=== PATIENT | male | born 1960 | race Caucasian/White ===

== ENCOUNTER 2016-06-03 15:44 | Emergency (ER) | payer MEDICARE ==
[2016-06-03] MEDS ORDERED: TYLENOL 325 MG PO STA (16:18)
[2016-06-03] MEDS ORDERED: PROVENTIL 2.5 MG/3 ML NEB IH ONE ×2 (16:20→16:47)
[2016-06-03] MEDS ORDERED: Sodium Chloride 0.9% 1000 ML 1,000 ML IV SCH (16:30)
[2016-06-03] MEDS ORDERED: Sodium Chloride 0.9% 1000 ML 1,000 ML ONE (16:31)
[2016-06-03] MEDS ORDERED: TYLENOL 325 MG ONE (16:31)
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
[2016-06-03 16:51] LABS: Mean Cell Volume 88.5 fl (78-100); Mean Corpuscular Hemoglobin 31.8 pg (26-32); Mean Platelet Volume 9.3 fl (6-9.5); Platelet Count 186 K/mm3 (150-450); Red Blood Count 4.53 M/mm3 (4.1-5.6); Red Cell Distribution Width 12.1 % (11.5-14.0); White Blood Count 2.7 K/mm3 (4.0-10.5)
--- NOTE | 2016-06-03 16:53 | XRAY ---
Indication: Cough and fever. Comparison: July 31, 2015. Portable chest less inflated today with new right midlung subsegmental atelectasis/scarring. No focal infiltrate, consolidation, or large effusion. Heart is not enlarged for AP portable technique. Vascularity normal. Bony thorax intact again with osteopenia, degenerative changes, scoliosis, and chronic deformities of the left shoulder/left ribs. Again left-sided electronic stimulator device with lead directed to the left neck. Impression: Nonacute underinflated chest with incidental findings.
[2016-06-03 17:33] LABS: ALBUMIN 3.9 g/dL (3.4-5.0); ALKALINE PHOSPHATASE 181 U/L (46-116); ANION GAP 16.4 MEQ/L (5-15); BILIRUBIN,TOTAL 0.2 mg/dL (0.2-1.0); BLOOD UREA NITROGEN 16 mg/dL (9-20); CHLORIDE 91 mEq/L (98-107); Carbon Dioxide 23.7 mEq/L (21-32); Glucose 107 MG/DL (70-110); Potassium 4.2 mEq/L (3.5-5.1); SGOT/AST 19 U/L (15-37); SGPT/ALT 30 U/L (12-78); SODIUM 127 mEq/L (136-145)
[2016-06-03] MEDS ORDERED: Tamiflu 75MG Capsule PO ONE ×2 (18:03→18:07)
[2016-06-03 18:22] LABS: ATYPICAL LYMPHS 1 %; BAND 14 % (0.0-2.0); Platelet Estimate NORMAL (NORMAL); Total Cells Counted 100
[2016-06-03 18:23] VITALS: BP 134/70; PULSE 76; O2SAT 98
== END 2016-06-03 18:23 | disposition home or self-care (01) ==
LOC: ED 15:44
DX: J11.1 Influenza due to unidentified influenza virus with other respiratory manifestations (principal); E87.1 Hypo-osmolality and hyponatremia; R50.9 Fever, unspecified
CPT/HCPCS: 99284; 36000; 96360; 96361; 87040; 36415; 85025; 80053; 87631; 71010; 94640; 83605; A9270 ×3

== ENCOUNTER 2018-05-29 20:10 | Observation (INO) | payer MEDICARE ==
[2018-05-29] MEDS ORDERED: Sodium Chloride 0.9% 1000 ML 1,000 ML IV STA (20:45)
[2018-05-29] MEDS ORDERED: TYLENOL 325 MG PO ONE (20:48)
[2018-05-29] MEDS ORDERED: Sodium Chloride 0.9% 1000 ML 1,000 ML ONE (20:53)
[2018-05-29] MEDS ORDERED: TYLENOL 325 MG ONE (20:53)
--- NOTE | 2018-05-29 20:57 | ERPHSYRPT ---
- History of Present Illness Time Seen by Provider: 05/29/18 20:53 Source: patient Exam Limitations: other (history of TBI) Patient Subjective Stated Complaint: brother states that pt has had a fever today, dry cough since last night, and possible seizure activity today Triage Nursing Assessment: pt awake and alert. lt arm contracted. pt answers some questions. brother is home care assistant and states that pt is drowsier than usual , but wakes easily. skin hot, dry. cap refill wnl. Physician History: 58-year-old white male brought in with the complaint of a fever today questionable seizure patient without any other complaints. 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 Past surgical history includes vagal nerve stimuli, double hernia repair, multiple surgeries to hand arms and jaw Timing/Duration: today Severity: moderate Modifying Factors: Improves With: nothing Associated Symptoms: fever, seizure (questionable seizure today), No nausea, No vomiting, No abdominal pain, No shortness of breath, No heartburn, No diaphoresis, No cough, No chills, No chest pain, No headaches, No loss of appetite, No malaise, No rash, No syncope, No weakness Allergies/Adverse Reactions: No Known Drug Allergies Allergy (Verified 05/29/18 21:54) Home Medications: Baclofen 40 mg PO BID 06/16/14 [History] Levetiracetam [Keppra] 500 mg PO BID 06/16/14 [History] Multivitamin [Multivitamins] 1 each PO DAILY 06/16/14 [History] Oxcarbazepine 300 mg [Trileptal 300 MG Tablet] 450 mg PO BID 06/16/14 [ History] Polyethylene Glycol 3350 17 gm [Miralax Powder 17GM PACKET] 1 packet PO HS [History] Lisinopril 10 mg [Zestril 10 MG] 20 mg PO BID 11/29/15 [History] Albuterol Sulfate [Proair Hfa] 8.5 gm IH BIDPRN PRN 06/03/16 [History] Fluticasone Propionate [Flonase NASAL] 16 gm NS DAILY 06/03/16 [History] Lacosamide [Vimpat] 200 mg PO BID 06/03/16 [History] Loratadine 10 mg [Claritin 10 mg] 10 mg PO DAILY 06/03/16 [History] Hx Tetanus, Diphtheria Vaccination/Date Given: Yes Hx Influenza Vaccination/Date Given: Yes Hx Pneumococcal Vaccination/Date Given: Yes Immunizations Up to Date: Yes - Review of Systems Constitutional: Fever Eyes: No Symptoms Ears, Nose, & Throat: No Symptoms Respiratory: No Cough, No Dyspnea Cardiac: No Chest Pain, No Edema, No Syncope Abdominal/Gastrointestinal: No Abdominal Pain, No Nausea, No Vomiting, No Diarrhea Genitourinary Symptoms: No Dysuria Musculoskeletal: No Back Pain, No Neck Pain Skin: No Rash Neurological: Seizure (questionable seizure today), Other (History of TBI), No Dizziness, No Focal Weakness, No Gait Changes, No Headache, No Irritability, No Lethargy, No Paralysis, No Parasthesia Psychological: No Symptoms Endocrine: No Symptoms All Other Systems: Reviewed and Negative - Past Medical History Pertinent Past Medical History: Yes Neurological History: Seizures ENT History: No Pertinent History Cardiac History: No Pertinent History Respiratory History: No Pertinent History Endocrine Medical History: No Pertinent History Musculoskeletal History: No Pertinent History GI Medical History: No Pertinent History History: No Pertinent History Psycho-Social History: Other Other Medical History: PT. HAS SEIZURE HX AND HYPERTONICITY D/T OLD TBI - Past Surgical History Past Surgical History: Yes Other Surgical History: (VNS). double hernia repair, multiple reconstruction surgerys to hand and arm/jaw - Social History Smoking Status: Never smoker Exposure to second hand smoke: No Drug Use: none Patient Lives Alone: No - Nursing Vital Signs Nursing Vital Signs: Initial Vital Signs Temperature 103.0 F 05/29/18 20:30 Pulse Rate 105 H 05/29/18 20:30 Respiratory Rate 20 05/29/18 20:30 Blood Pressure 130/69 05/29/18 20:30 O2 Sat by Pulse Oximetry 93 L 05/29/18 20:30 Pain Scale Pain Intensity 0 - Physical Exam General Appearance: other (well-developed obese white male somnolent, arouses easily oriented to person place) Eye Exam: PERRL/EOMI, eyes nml inspection Ears, Nose, Throat Exam: normal ENT inspection, TMs normal, pharynx normal, moist mucous membranes Neck Exam: normal inspection, non-tender, supple, full range of motion Respiratory Exam: normal breath sounds, lungs clear, No respiratory distress Cardiovascular Exam: regular rate/rhythm, normal heart sounds, normal peripheral pulses Gastrointestinal/Abdomen Exam: soft, normal bowel sounds, No tenderness, No mass Back Exam: normal inspection, normal range of motion, No CVA tenderness, No vertebral tenderness Extremity Exam: normal inspection, normal range of motion, pelvis stable Neurologic Exam: alert, oriented x 3, cooperative, normal mood/affect, nml cerebellar function, nml station & gait, sensation nml, No motor deficits Skin Exam: normal color, warm, dry, No rash Lymphatic Exam: No adenopathy SpO2 Interpretation: normal (91%) SpO2: 91 - Course Nursing assessment & vital signs reviewed: Yes EKG Interpreted by Me: RATE (108 bpm), Sinus Tach, Other (EKG: Sinus tachycardia , 108 bpm, AXISSI/Qiii pattern, no acute ST or T wave changes, essentially normal EKG) - Radiology Exams Chest X-ray Interpretation: Interpreted by me (chest x-ray: No acute disease process noted) Ordered Tests: Active Orders 24 hr Category Date Time Status Circulation Manager STAT Care 05/29/18 20:46 Active EKG-ER Only STAT Care 05/29/18 20:45 Active Velásquez [Catheter-[place] Velásquez] STAT Care 05/29/18 21:41 Active IV Insertion STAT Care 05/29/18 20:45 Active Oxygen-ED Only Nasal Cannula 2 lpm Care 05/29/18 21:57 Active Pulse Oximetry (ED) STAT Care 05/29/18 20:45 Active CHEST 1 VIEW (PORTABLE) Stat Exams 05/29/18 20:46 Taken BLOOD CULTURE Stat Lab 05/29/18 21:26 Received CBC W DIFF Stat Lab 05/29/18 20:57 Completed CMP Stat Lab 05/29/18 20:57 Completed CULTURE,SPUTUM Stat Lab 05/29/18 20:46 Uncollected Lactic Acid Stat Lab 05/29/18 21:00 Completed NT PRO BNP Stat Lab 05/29/18 20:58 Completed UA W/RFX UR CULTURE Stat Lab 05/29/18 21:51 Completed VENOUS BLOOD GAS Stat Lab 05/29/18 21:00 Completed Peak Expiratory Flow Rate ONCE RT 05/29/18 22:26 Active Respiratory Therapy Assessment DAILY RT 05/29/18 22:25 Active Medication Summary Discontinued Medications Generic Name Dose Route Start Last Admin Trade Name Freq PRN Reason Stop Dose Admin Acetaminophen 975 mg 05/29/18 20:48 05/29/18 21:26 Tylenol 325 Mg PO 05/29/18 20:49 975 mg STAT ONE Administration Acetaminophen Confirm 05/29/18 20:53 Tylenol 325 Mg Administered 05/29/18 20:54 Dose 975 mg .ROUTE .STK-MED ONE Albuterol Sulfate 2.5 mg 05/29/18 22:13 05/29/18 22:22 Proventil 2.5 Mg/3 Ml Neb IH 05/29/18 22:14 2.5 mg STAT ONE Administration Albuterol Sulfate Confirm 05/29/18 22:19 Proventil 2.5 Mg/3 Ml Neb Administered 05/29/18 22:20 Dose 2.5 mg IH .STK-MED ONE Sodium Chloride 1,000 mls @ 999 mls/hr 05/29/18 20:45 05/29/18 21:19 Sodium Chloride 0.9% 1000 Ml IV 05/29/18 21:45 999 mls/hr .Q1H1M STA Administration Sodium Chloride Confirm 05/29/18 20:53 Sodium Chloride 0.9% 1000 Ml Administered 05/29/18 20:54 Dose 1,000 mls @ ud .ROUTE .STK-MED ONE Ceftriaxone Sodium/Dextrose 1 g in 50 mls @ 100 mls/hr 05/29/18 22:03 22:14 Rocephin 1 Gm-D5w 50 Ml Bag IV 05/29/18 22:32 100 mls/hr STAT STA 100 mls/hr Administration Ceftriaxone Sodium/Dextrose Confirm 05/29/18 22:10 Rocephin 1 Gm-D5w 50 Ml Bag Administered 05/29/18 22:11 Dose 1 g in 50 mls @ ud IV .STK-MED ONE Lab/Rad Data: Laboratory Result Diagrams 05/29/18 20:57 05/29/18 20:57 Laboratory Results 05/29/18 05/29/18 05/29/18 Range/Units 21:51 21:26 21:25 WBC (4.0-10.5) K/mm3 RBC (4.1-5.6) M/mm3 Hgb (12.5-18.0) gm/dl Hct (42-50) % MCV (78-100) fl MCH (26-32) pg MCHC (32-36) g/dl RDW (11.5-14.0) % Plt Count (150-450) K/mm3 MPV (6-9.5) fl Gran % (36.0-66.0) % Eos # (Auto) (0-0.5) Absolute Lymphs (auto) (1.0-4.6) Absolute Monos (auto) (0.0-1.3) Lymphocytes % (24.0-44.0) % Monocytes % (0.0-12.0) % Eosinophils % (0.00-5.0) % Basophils % (0.0-0.4) % Absolute Granulocytes (1.4-6.9) Basophils # (0-0.4) pO2/FiO2 Ratio % VBG pH (7.32-7.42) VBG pCO2 at Pat Temp (42-55) mm/Hg VBG pO2 at Pat Temp (25-40) mm/Hg VBG HCO3 (22-28) meq/L VBG O2 Sat ([place]) (95-100) VBG Base Excess (-2.0-2.0) VBG Hemoglobin VBG Carboxyhemoglobin (0.0-6.9) % T HGB POC Potassium (3.5-5.1) Sodium (137-145) mmol/L Potassium (3.5-5.1) mmol/L Chloride (98-107) mmol/L Carbon Dioxide (22-30) mmol/L Anion Gap (5-15) MEQ/L BUN (9-20) mg/dL Creatinine (0.66-1.25) mg/dL Estimated GFR ML/MIN Glucose (74-106) mg/dL Lactic Acid (0.4-2.0) Calcium (8.4-10.2) mg/dL Total Bilirubin (0.2-1.3) mg/dL AST (17-59) U/L ALT (0-50) U/L Alkaline Phosphatase (38-126) U/L NT-Pro-B Natriuret Pep (0-900) pg/mL Serum Total Protein (6.3-8.2) g/dL Albumin (3.5-5.0) g/dL Urine Color YELLOW (YELLOW) Urine Appearance SLIGHTLY CLOUDY (CLEAR) Urine pH 5.0 (5-6) Ur Specific [place] 1.019 (1.005-1.025) Urine Protein 30 (Negative) Urine Ketones TRACE (NEGATIVE) Urine Blood NEGATIVE (0-5) Arturo/ul Urine Nitrite NEGATIVE (NEGATIVE) Urine Bilirubin NEGATIVE (NEGATIVE) Urine Urobilinogen NEGATIVE (0-1) mg/dL Ur Leukocyte Esterase NEGATIVE (NEGATIVE) Urine WBC (Auto) 6-10 (0-5) /HPF Urine RBC (Auto) 3-5 (0-2) /HPF U Epithel Cells (Auto) NONE (FEW) /HPF Urine Bacteria (Auto) NONE SEEN (NEGATIVE) /HPF Urine Mucus (Auto) SLIGHT (NEGATIVE) /HPF Urine Culture Reflexed NO (NO) Urine Glucose NEGATIVE (NEGATIVE) mg/dL Carbamazepine < 3.0 L (4.0-12.0) ug/mL Influenza Type A Ag POSITIVE (NEGATIVE) Influenza Type B Ag NEGATIVE (NEGATIVE) RSV (PCR) NEGATIVE (Negative) 05/29/18 05/29/18 05/29/18 Range/Units 21:00 20:58 20:57 WBC (4.0-10.5) K/mm3 RBC (4.1-5.6) M/mm3 Hgb (12.5-18.0) gm/dl Hct (42-50) % MCV (78-100) fl MCH (26-32) pg MCHC (32-36) g/dl RDW (11.5-14.0) % Plt Count (150-450) K/mm3 MPV (6-9.5) fl Gran % (36.0-66.0) % Eos # (Auto) (0-0.5) Absolute Lymphs (auto) (1.0-4.6) Absolute Monos (auto) (0.0-1.3) Lymphocytes % (24.0-44.0) % Monocytes % (0.0-12.0) % Eosinophils % (0.00-5.0) % Basophils % (0.0-0.4) % Absolute Granulocytes (1.4-6.9) Basophils # (0-0.4) pO2/FiO2 Ratio 21.0 % VBG pH 7.41 (7.32-7.42) VBG pCO2 at Pat Temp 38 L (42-55) mm/Hg VBG pO2 at Pat Temp 44 H (25-40) mm/Hg VBG HCO3 24.1 (22-28) meq/L VBG O2 Sat ([place]) 85.1 L (95-100) VBG Base Excess -0.3 (-2.0-2.0) VBG Hemoglobin 14.3 VBG Carboxyhemoglobin 2.7 (0.0-6.9) % T HGB POC Potassium 4.3 (3.5-5.1) Sodium 124 L (137-145) mmol/L Potassium 4.5 (3.5-5.1) mmol/L Chloride 89 L (98-107) mmol/L Carbon Dioxide 23 (22-30) mmol/L Anion Gap 17.1 H (5-15) MEQ/L BUN 17 (9-20) mg/dL Creatinine 0.55 L (0.66-1.25) mg/dL Estimated GFR > 60.0 ML/MIN Glucose 130 H (74-106) mg/dL Lactic Acid 1.2 (0.4-2.0) Calcium 9.0 (8.4-10.2) mg/dL Total Bilirubin 0.40 (0.2-1.3) mg/dL AST 41 (17-59) U/L ALT 36 (0-50) U/L Alkaline Phosphatase 177 H (38-126) U/L NT-Pro-B Natriuret Pep 196 (0-900) pg/mL Serum Total Protein 7.6 (6.3-8.2) g/dL Albumin 4.6 (3.5-5.0) g/dL Urine Color (YELLOW) Urine Appearance (CLEAR) Urine pH (5-6) Ur Specific [place] (1.005-1.025) Urine Protein (Negative) Urine Ketones (NEGATIVE) Urine Blood (0-5) Arturo/ul Urine Nitrite (NEGATIVE) Urine Bilirubin (NEGATIVE) Urine Urobilinogen (0-1) mg/dL Ur Leukocyte Esterase (NEGATIVE) Urine WBC (Auto) (0-5) /HPF Urine RBC (Auto) (0-2) /HPF U Epithel Cells (Auto) (FEW) /HPF Urine Bacteria (Auto) (NEGATIVE) /HPF Urine Mucus (Auto) (NEGATIVE) /HPF Urine Culture Reflexed (NO) Urine Glucose (NEGATIVE) mg/dL Carbamazepine (4.0-12.0) ug/mL Influenza Type A Ag (NEGATIVE) Influenza Type B Ag (NEGATIVE) RSV (PCR) (Negative) 05/29/18 Range/Units 20:57 WBC 3.9 L (4.0-10.5) K/mm3 RBC 4.31 (4.1-5.6) M/mm3 Hgb 13.6 (12.5-18.0) gm/dl Hct 39.0 L (42-50) % MCV 90.5 (78-100) fl MCH 31.6 (26-32) pg MCHC 34.9 (32-36) g/dl RDW 12.4 (11.5-14.0) % Plt Count 204 (150-450) K/mm3 MPV 9.3 (6-9.5) fl Gran % 74.8 H (36.0-66.0) % Eos # (Auto) 0 (0-0.5) Absolute Lymphs (auto) 0.39 L (1.0-4.6) Absolute Monos (auto) 0.59 (0.0-1.3) Lymphocytes % 9.9 L (24.0-44.0) % Monocytes % 15.0 H (0.0-12.0) % Eosinophils % 0.0 (0.00-5.0) % Basophils % 0.3 (0.0-0.4) % Absolute Granulocytes 2.94 (1.4-6.9) Basophils # 0.01 (0-0.4) pO2/FiO2 Ratio % VBG pH (7.32-7.42) VBG pCO2 at Pat Temp (42-55) mm/Hg VBG pO2 at Pat Temp (25-40) mm/Hg VBG HCO3 (22-28) meq/L VBG O2 Sat ([place]) (95-100) VBG Base Excess (-2.0-2.0) VBG Hemoglobin VBG Carboxyhemoglobin (0.0-6.9) % T HGB POC Potassium (3.5-5.1) Sodium (137-145) mmol/L Potassium (3.5-5.1) mmol/L Chloride (98-107) mmol/L Carbon Dioxide (22-30) mmol/L Anion Gap (5-15) MEQ/L BUN (9-20) mg/dL Creatinine (0.66-1.25) mg/dL Estimated GFR ML/MIN Glucose (74-106) mg/dL Lactic Acid (0.4-2.0) Calcium (8.4-10.2) mg/dL Total Bilirubin (0.2-1.3) mg/dL AST (17-59) U/L ALT (0-50) U/L Alkaline Phosphatase (38-126) U/L NT-Pro-B Natriuret Pep (0-900) pg/mL Serum Total Protein (6.3-8.2) g/dL Albumin (3.5-5.0) g/dL Urine Color (YELLOW) Urine Appearance (CLEAR) Urine pH (5-6) Ur Specific [place] (1.005-1.025) Urine Protein (Negative) Urine Ketones (NEGATIVE) Urine Blood (0-5) Arturo/ul Urine Nitrite (NEGATIVE) Urine Bilirubin (NEGATIVE) Urine Urobilinogen (0-1) mg/dL Ur Leukocyte Esterase (NEGATIVE) Urine WBC (Auto) (0-5) /HPF Urine RBC (Auto) (0-2) /HPF U Epithel Cells (Auto) (FEW) /HPF Urine Bacteria (Auto) (NEGATIVE) /HPF Urine Mucus (Auto) (NEGATIVE) /HPF Urine Culture Reflexed (NO) Urine Glucose (NEGATIVE) mg/dL Carbamazepine (4.0-12.0) ug/mL Influenza Type A Ag (NEGATIVE) Influenza Type B Ag (NEGATIVE) RSV (PCR) (Negative) - Progress Progress: improved Progress Note: 05/29/18 21:23 Patient's vitals apparently triggered sepsis alert. Patient with a lactate of 1.2 Patient does not appear to be in acute distress he has good perfusion to all extremities vitals are stable with the exception of elevated temperature. Patient has received Tylenol. He is also receiving 1 L of normal saline.. 05/29/18 22:08 Patient given 1 g of Rocephin IV , blood cultures and urine have been obtained. 05/29/18 22:31 Patient's influenza A is positive. Patient was given albuterol treatment. Will consider Tamiflu. 05/29/18 22:41 I had a further discussion with the patient's brother he states that the patient is very fragile medically. Patient does have his temperature down to 99.9 he is coughing somewhat. He has received Rocephin as noted above I have ordered Tamiflu. I've discussed case with Dr. Jiménez will place patient on observation telemetry. Diagnosis 1 bronchitis. 2 fever. 3 hyponatremia. 4. Influenza A. - Departure Time of Disposition: 22:42 Departure Disposition: Observation (Biaxin before appointment) Clinical Impression: Bronchitis, Influenza A, Hyponatremia Fever Qualifiers: Fever type: unspecified Qualified Code(s): R50.9 - Fever, unspecified Condition: Fair Critical Care Time: No Referrals: SUSANA BALDWIN MD [Primary Care Provider] -
[2018-05-29 21:01] LABS: BASOPHIL % 0.3 % (0.0-0.4); Basophil (Absolute #) 0.01 (0-0.4); Eosinophil (Absolute #) 0 (0-0.5); Granulocyte Absolute (ANC) 2.94 (1.4-6.9); Granulocytes % 74.8 % (36.0-66.0); Hemoglobin 13.6 gm/dl (12.5-18.0); Lymphocyte (Absolute #) 0.39 (1.0-4.6); Lymphocytes % 9.9 % (24.0-44.0); Mean Cell Volume 90.5 fl (78-100); Mean Corpuscular Hemoglobin 31.6 pg (26-32); Mean Corpuscular Hgb Concent. 34.9 g/dl (32-36); Mean Platelet Volume 9.3 fl (6-9.5); Monocyte (Absolute #) 0.59 (0.0-1.3); Platelet Count 204 K/mm3 (150-450); Red Blood Count 4.31 M/mm3 (4.1-5.6); Red Cell Distribution Width 12.4 % (11.5-14.0); White Blood Count 3.9 K/mm3 (4.0-10.5)
[2018-05-29 21:08] LABS: Lactic Acid 1.2 (0.4-2.0); VBG BASE EXCESS -0.3 (-2.0-2.0); VBG CARBOXYHEMOGLOBIN 2.7 % T HGB (0.0-6.9); VBG HCO3- 24.1 meq/L (22-28); VBG HEMOGLOBIN 14.3; VBG O2 SATURATION 85.1 (95-100); VBG POTASSIUM 4.3 (3.5-5.1); VBG pH 7.41 (7.32-7.42)
[2018-05-29 21:34] LABS: ALBUMIN 4.6 g/dL (3.5-5.0); ALKALINE PHOSPHATASE 177 U/L (38-126); ANION GAP 17.1 MEQ/L (5-15); BLOOD UREA NITROGEN 17 mg/dL (9-20); CHLORIDE 89 mmol/L (98-107); Carbon Dioxide 23 mmol/L (22-30); Creatinine 1 0.55 mg/dL (0.66-1.25); Glucose 130 mg/dL (74-106); Potassium 4.5 mmol/L (3.5-5.1); SGOT/AST 41 U/L (17-59); SGPT/ALT 36 U/L (0-50); SODIUM 124 mmol/L (137-145); Total Protein 7.6 g/dL (6.3-8.2)
[2018-05-29 21:59] LABS: Appearance SLIGHTLY CLOUDY (CLEAR); Bacteria NONE SEEN /HPF (NEGATIVE); Bilirubin NEGATIVE (NEGATIVE); Blood NEGATIVE Ery/ul (0-5); Glucose NEGATIVE (NEGATIVE); Ketones TRACE (NEGATIVE); Leukocyte Esterase NEGATIVE (NEGATIVE); Mucus SLIGHT /HPF (NEGATIVE); Nitrite NEGATIVE (NEGATIVE); Protein,Urine Dip 30 (Negative); Specific Gravity 1.019 (1.005-1.025); Urobilinogen NEGATIVE mg/dL (0-1)
[2018-05-29] MEDS ORDERED: ROCEPHIN 1 Gm-D5w 50 ml Bag** 1 G/50 ML IVPB IV STA (22:03)
[2018-05-29] MEDS ORDERED: ROCEPHIN 1 Gm-D5w 50 ml Bag** 1 G/50 ML IVPB IV ONE (22:10)
[2018-05-29] MEDS ORDERED: PROVENTIL 2.5 MG/3 ML NEB IH ONE ×2 (22:13→22:19)
[2018-05-29 22:27] LABS: INFLUENZA A POSITIVE (NEGATIVE); INFLUENZA B NEGATIVE (NEGATIVE); RESPIRATORY SYNCTIAL VIRUS NEGATIVE (Negative)
[2018-05-29] MEDS ORDERED: Tamiflu 75MG Capsule PO ONE ×2 (22:44→23:15)
[2018-05-30] MEDS ORDERED: TYLENOL 325 MG PO PRN (00:42)
[2018-05-30] MEDS ORDERED: PROVENTIL 2.5 MG/3 ML NEB IH PRN (00:42)
[2018-05-30] MEDS ORDERED: Sodium Chloride 0.9% 1000 ML 1,000 ML IV SCH (00:42)
[2018-05-30 06:13] LABS: BASOPHIL % 0.7 % (0.0-0.4); Basophil (Absolute #) 0.02 (0-0.4); Eosinophil (Absolute #) 0 (0-0.5); Granulocyte Absolute (ANC) 1.76 (1.4-6.9); Hematocrit 37.7 % (42-50); Hemoglobin 12.9 gm/dl (12.5-18.0); Lymphocyte (Absolute #) 0.73 (1.0-4.6); Lymphocytes % 24.1 % (24.0-44.0); Mean Cell Volume 93.1 fl (78-100); Mean Corpuscular Hgb Concent. 34.2 g/dl (32-36); Mean Platelet Volume 9.4 fl (6-9.5); Monocyte (Absolute #) 0.52 (0.0-1.3); Monocytes % 17.2 % (0.0-12.0); Platelet Count 167 K/mm3 (150-450); Red Blood Count 4.05 M/mm3 (4.1-5.6); Red Cell Distribution Width 12.7 % (11.5-14.0)
[2018-05-30 06:15] LABS: Mean Corpuscular Hemoglobin 31.8 pg (26-32)
[2018-05-30 06:24] LABS: ALBUMIN 3.8 g/dL (3.5-5.0); ALKALINE PHOSPHATASE 159 U/L (38-126); ANION GAP 13.9 MEQ/L (5-15); BLOOD UREA NITROGEN 12 mg/dL (9-20); CHLORIDE 92 mmol/L (98-107); Calcium 8.5 mg/dL (8.4-10.2); Carbon Dioxide 25 mmol/L (22-30); Creatinine 1 0.47 mg/dL (0.66-1.25); Glucose 95 mg/dL (74-106); Potassium 4.4 mmol/L (3.5-5.1); SGOT/AST 34 U/L (17-59); SGPT/ALT 31 U/L (0-50); SODIUM 127 mmol/L (137-145); Total Protein 6.4 g/dL (6.3-8.2)
[2018-05-30 07:41] VITALS: BP 138/72; PULSE 97
--- NOTE | 2018-05-30 08:28 | XRAY ---
Indication: Fever. Comparison: June 03, 2016. Portable chest again demonstrates chronic lung markings without focal infiltrate, consolidation, or large effusion. Heart is now borderline enlarged. Bony thorax again demonstrates osteopenia, degenerative changes, scoliosis, and chronic left shoulder/left rib deformities. Stable left-sided electronic stimulator device and lead. Impression: Borderline cardiomegaly. Negative for acute pneumonic process or CHF.
[2018-05-30 09:08] VITALS: O2SAT 94
[2018-05-30] MEDS ORDERED: Tamiflu 75MG Capsule PO SCH (10:00)
--- NOTE | 2018-05-30 10:04 | PCM.DCORD ---
- Discharge Discharge Date: 05/30/18 Disposition: Home, Self-Care Prescriptions: Continue Baclofen 40 mg PO DAILY Multivitamin [Multivitamins] 1 each PO DAILY Polyethylene Glycol 3350 17 gm [Miralax Powder 17GM PACKET] 1 packet PO HS Lisinopril 10 mg [Zestril 10 MG] 20 mg PO BID Fluticasone Propionate [Flonase NASAL] 16 gm NS DAILY Loratadine 10 mg [Claritin 10 mg] 10 mg PO DAILY Albuterol Sulfate [Proair Hfa] 8.5 gm IH BIDPRN PRN PRN Reason: resp Mupirocin [Bactroban OINTMENT] 22 gm TP BID Psyllium Husk (with Sugar) [Metamucil Packet] 3.4 gm PO HS Baclofen 20 mg PO HS Eslicarbazepine Acetate [Aptiom] 600 mg PO BID Brivaracetam [Briviact] 100 mg PO BID Oseltamivir 75 mg [Tamiflu 75MG Capsule] 75 mg PO BID 4 Days #8 cap Follow up with: SUSANA BALDWIN MD [Primary Care Provider] - 1 Week
--- NOTE | 2018-06-01 08:26 | SSS ---
CHIEF COMPLAINT: Fever. 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 The patient is currently alert and oriented x3 and feeling much better. He did have a temperature of 103F on his initial evaluation. PAST MEDICAL/SURGICAL HISTORY: Otherwise significant for no other medical problems. HOME MEDICATIONS: Baclofen 40 mg t.i.d., Keppra 500 mg b.i.d., multivitamins, Trileptal 350 mg 1 tablets b.i.d., MiraLAX powder, lisinopril 20 mg b.i.d., Albuterol PRN, Flonase nasal spray, Vimpat 200 mg b.i.d. and loratadine 10 mg a day. ALLERGIES: NKDA. PHYSICAL EXAMINATION: The patient's vital signs on admission again showed a temperature 103.0F, pulse 105, respiratory rate 20, blood pressure 130/69. O2 saturation 93% on room air. HEENT: Appears to be normocephalic, atraumatic. The right eye divergent with exotropia. The pupils appear to be equal round reactive to light. Oropharynx is pink and moist. NECK: Supple without lymphadenopathy, thyromegaly or JVD. CHEST: Clear to auscultation with fair air movement bilaterally. HEART: Regular rate and rhythm without murmurs, rubs or gallops. ABDOMEN: Reveals no palpable masses. EXTREMITIES: Reveal flexion contractions of the upper and lower extremities. NEUROLOGIC: The patient is however alert and oriented x3. LAB DATA AND TESTS: Laboratory studies from the emergency room revealed chest x-ray showing borderline cardiomegaly but negative for acute pulmonary process or congestive heart failure. His nonfasting sugar is 130, BUN 17, creatinine 0.55. Sodium low at 124. Potassium normal. Liver enzymes were normal. Alkaline phosphatase slightly elevated at 177. ProBNP 196. White blood cell count 3,900, hemoglobin 13.6, PLT count 204,000. There appeared to be a left shift with 74.8% granulocytes. Influenza A was positive. Influenza B and respiratory syncytial virus were negative. Urine showed specific gravity 1.019, white blood cells 6 to 10 per high power field. Tegretol level was less than 3. Venous blood gas showed a pH of 7.41 and pCO2 38. DISCHARGE DIAGNOSES: 1) INFLUENZA A. He has been given Tamiflu and antipyretic medication. He is now fever free and feeling much better. 2) SEIZURE DISORDER. The patient has been seizure free since admission and appears to be in his normal state of health. At this point he is felt to be ready for discharge home again on Tamiflu 75 mg b.i.d. for five days as the only new medication. He will follow with Dr. Jane in the office on an as needed basis.
== END 2018-05-30 12:00 | disposition home or self-care (01) ==
LOC: ED 20:10 → MED SURG 05-30 00:15
PROVIDERS: ADMIT Family Medicine; ATTEND Family Medicine
DX: J09.X2 Influenza due to identified novel influenza A virus with other respiratory manifestations (principal); R56.9 Unspecified convulsions; Z87.820 Personal history of traumatic brain injury; Z79.899 Other long term (current) drug therapy
CPT/HCPCS: 36000; 36415; 51702; 71045; 80053; 80156; 80175; 81001; 82805; 83605; 83880; 85025; 87040; 87631; 93005; 93041; 93268; 94150; 94640; 94762; 96360; 96365; 99285; G0378; J0696; J7609; A9270-GY

== ENCOUNTER 2018-10-06 17:10 | Emergency (ER) | payer MEDICARE ==
[2018-10-06 17:43] VITALS: PULSE 99
[2018-10-06] MEDS ORDERED: Rocephin 1000 MG INJ IM ONE (18:07)
[2018-10-06] MEDS ORDERED: XYLOCAINE 1% HCL 20 ML MDV ONE (18:09)
[2018-10-06] MEDS ORDERED: Rocephin 1000 MG INJ ONE (18:09)
[2018-10-06 18:38] VITALS: BP 105/83
--- NOTE | 2018-10-06 18:39 | ERPHSYRPT ---
- History of Present Illness Time Seen by Provider: 10/06/18 17:45 Source: patient, other (home visit field care manager.) Exam Limitations: physical impairment Patient Subjective Stated Complaint: caregiver states patient has had two small wounds to left ankle and is being treated in the wound clinic every . states today noticed that left lower leg was more swollen than normal and is now having drainage from wounds. states wound center is closed tomorrow. they are doing daily dressing changes. Triage Nursing Assessment: to room per own w/c. skin w/d, color normal, resp easy. has two small wounds to left ankle with small amt drainage. Physician History: 58 y/po white male hemiplegic wheelchair bound white male with chronic left ankle wounds. pts wounds being cared for by wound care clinic and Matilde Vasquez NP. over last 24 to 36 hours increased swelling, redness, wound drainage and tenderness in area of lateral ulcerations. Timing/Duration: hour(s) (24) Quality: painful Severity: mild Location: extremities (left lateral ankle) Possible Causes: no cause identified Associated Symptoms: change in skin texture Allergies/Adverse Reactions: No Known Drug Allergies Allergy (Verified 05/29/18 21:54) Home Medications: Baclofen 40 mg PO DAILY 06/16/14 [History] Multivitamin [Multivitamins] 1 each PO DAILY 06/16/14 [History] Lisinopril 10 mg [Zestril 10 MG] 20 mg PO BID 11/29/15 [History] Albuterol Sulfate [Proair Hfa] 8.5 gm IH BIDPRN PRN 06/03/16 [History] Loratadine 10 mg [Claritin 10 mg] 10 mg PO DAILY 06/03/16 [History] Baclofen 60 mg PO HS 05/30/18 [History] Brivaracetam [Briviact] 100 mg PO BID 05/30/18 [History] Eslicarbazepine Acetate [Aptiom] 600 mg PO BID 05/30/18 [History] Mupirocin [Bactroban OINTMENT] 22 gm TP BID 05/30/18 [History] Psyllium Husk (with Sugar) [Metamucil Packet] 3.4 gm PO HS 05/30/18 [History] Lacosamide [Vimpat] 200 mg PO BID 10/06/18 [History] Lisinopril [Prinivil] 20 mg PO BID 10/06/18 [History] Hx Tetanus, Diphtheria Vaccination/Date Given: No Hx Influenza Vaccination/Date Given: Yes Hx Pneumococcal Vaccination/Date Given: Yes - Review of Systems Constitutional: No Symptoms Eyes: No Symptoms Ears, Nose, & Throat: No Symptoms Respiratory: No Symptoms Cardiac: No Symptoms Abdominal/Gastrointestinal: No Symptoms Genitourinary Symptoms: No Symptoms Musculoskeletal: No Symptoms Skin: Cellulitis, Other (left lateral ankle ulcerations) Neurological: No Symptoms Psychological: No Symptoms Endocrine: No Symptoms Hematologic/Lymphatic: No Symptoms Immunological/Allergic: No Symptoms All Other Systems: Reviewed and Negative - Past Medical History Pertinent Past Medical History: Yes Neurological History: Seizures ENT History: No Pertinent History Cardiac History: No Pertinent History, Hypertension Respiratory History: No Pertinent History Endocrine Medical History: No Pertinent History Musculoskeletal History: No Pertinent History GI Medical History: No Pertinent History History: No Pertinent History Psycho-Social History: Other Other Medical History: PT. HAS SEIZURE HX AND HYPERTONICITY D/T OLD TBI - Past Surgical History Past Surgical History: Yes Cardiac: No Pertinent History Respiratory: No Pertinent History Gastrointestinal: No Pertinent History Genitourinary: No Pertinent History Musculoskeletal: No Pertinent History Male Surgical History: No Pertinent History Other Surgical History: (VNS). double hernia repair, multiple reconstruction surgerys to hand and arm/jaw - Social History Smoking Status: Never smoker Exposure to second hand smoke: No Drug Use: none Patient Lives Alone: No - Nursing Vital Signs Nursing Vital Signs: Initial Vital Signs Temperature 99.8 F 10/06/18 17:31 Pulse Rate 99 H 10/06/18 17:31 Respiratory Rate 16 10/06/18 17:31 Blood Pressure 155/79 10/06/18 17:31 O2 Sat by Pulse Oximetry 98 10/06/18 17:31 Pain Scale Pain Intensity 0 - Physical Exam General Appearance: no apparent distress, alert, anxiety Eye Exam: PERRL/EOMI Ears, Nose, Throat Exam: normal ENT inspection, moist mucous membranes Respiratory Exam: lungs clear, airway intact, No chest tenderness Gastrointestinal/Abdomen Exam: No tenderness Rectal Exam: not done Extremity Exam: inflammation, swelling, tenderness, other (ulcerations x2 left lateral malleolus. no odor. redness and tenderness, clear serosanguinous drainage. ) Neurologic Exam: alert, oriented x 3 Skin Exam: other (ulcerations and cellulitis as above extremity section) Lymphatic Exam: No adenopathy SpO2 Interpretation: normal SpO2: 98 O2 Delivery: Room Air - Course Nursing assessment & vital signs reviewed: Yes Ordered Tests: Active Orders 24 hr Category Date Time Status CULTURE,WOUND Stat Lab 10/06/18 18:24 Ordered Medication Summary Discontinued Medications Generic Name Dose Route Start Last Admin Trade Name Greg PRN Reason Stop Dose Admin Ceftriaxone Sodium 1,000 mg 10/06/18 18:07 10/06/18 18:17 Rocephin 1000 Mg Inj IM 10/06/18 18:08 1,000 mg STAT ONE Administration Ceftriaxone Sodium Confirm 10/06/18 18:09 Rocephin 1000 Mg Inj Administered 10/06/18 18:10 Dose 1,000 mg .ROUTE .STK-MED ONE Lidocaine HCl Confirm 10/06/18 18:09 Xylocaine 1% Hcl 20 Ml Mdv Administered 10/06/18 18:10 Dose 2 ml .ROUTE .STK-MED ONE - Progress Progress: improved Progress Note: 10/06/18 18:44 spoke with Billy Vasquez ROUNDSMAN who oversees home healthcare for this pt. she is going to check on would culture results, discuss with home health care and attempt to have pt evaluated early next week by wound care center Counseled pt/family regarding: diagnosis, need for follow-up - Departure Departure Disposition: Home Clinical Impression: Cellulitis Condition: Stable Critical Care Time: No Referrals: SUSANA BALDWIN MD [Primary Care Provider] - Additional Instructions: keep wound sites clean daily and as needed with soap and water. cover ulceration sites daily and as needed with nonstick gauze, wrap with kerlex then cover with adwoa wrap as compression. keep lower extremities above level of heart. remove and reapply adwoa wrap twice daily to aid in keeping compression on ulceration sites. Prescriptions: Smz/Tmp Ds Tablet [Bactrim Ds Tablet] 1 udtab PO BID #14 tablet
[2018-10-06 18:40] VITALS: O2SAT 98
== END 2018-10-06 19:01 | disposition home or self-care (01) ==
LOC: ED 17:10
DX: L03.116 Cellulitis of left lower limb (principal); Z79.899 Other long term (current) drug therapy; I10 Essential (primary) hypertension; G40.909 Epilepsy, unspecified, not intractable, without status epilepticus
CPT/HCPCS: 87070; 87077; 87186; 96372; 99283; J0696

== ENCOUNTER 2019-09-21 17:50 | Inpatient (IN) | payer MEDICARE ==
[2019-09-21 19:12] LABS: Appearance SLIGHTLY CLOUDY (CLEAR); Bilirubin NEGATIVE (NEGATIVE); Blood NEGATIVE Ery/ul (0-5); Glucose 50 mg/dL (NEGATIVE); Ketones NEGATIVE (NEGATIVE); Leukocyte Esterase NEGATIVE (NEGATIVE); Mucus SLIGHT /HPF (NEGATIVE); Nitrite NEGATIVE (NEGATIVE); Protein,Urine Dip 30 (Negative); RBC 0-2 /HPF (0-2); Specific Gravity 1.015 (1.005-1.025); Urobilinogen NEGATIVE mg/dL (0-1)
--- NOTE | 2019-09-21 20:42 | ERPHSYRPT ---
- History of Present Illness Time Seen by Provider: 09/21/19 19:30 Source: other (caregiver) Exam Limitations: other (TBI) Patient Subjective Stated Complaint: cough Triage Nursing Assessment: pt to ED c/o non productive cough x days as well as weakness and seizure activity today. caregiver with pt states hx grand mal seizures, today has been staring off and more weak. pt is paralyzed on L side upper and lower extremity. lung sounds crackles audibly. heart sounds clear. assist x 3 to bed from automatic WC. pt also states L hip pain onset today. denies injury or trauma to area. Physician History: For the past 2 weeks pt has had nasal congestion; for the past 2 days a non- productive cough; today pt has pain on his left hip. Caregiver states pt has been paralyzed on his left side since an accident when he was 19 years old. Fever & vomiting denied. Pt does have seizures. Allergies/Adverse Reactions: No Known Drug Allergies Allergy (Verified 05/29/18 21:54) Home Medications: Multivitamin [Multivitamins] 1 each PO DAILY 06/16/14 [History] Albuterol Sulfate [Proair Hfa] 8.5 gm IH BIDPRN PRN 06/03/16 [History] Loratadine 10 mg [Claritin 10 mg] 10 mg PO DAILY 06/03/16 [History] Brivaracetam [Briviact] 100 mg PO BID 05/30/18 [History] Eslicarbazepine Acetate [Aptiom] 600 mg PO BID 05/30/18 [History] Mupirocin [Bactroban OINTMENT] 22 gm TP BID 05/30/18 [History] Psyllium Husk (with Sugar) [Metamucil Packet] 3.4 gm PO HS 05/30/18 [History] Lacosamide [Vimpat] 200 mg PO BID 10/06/18 [History] lisinopriL [Prinivil] 20 mg PO BID 10/06/18 [History] Baclofen 20 mg PO BID 09/21/19 [History] Hx Tetanus, Diphtheria Vaccination/Date Given: No Hx Influenza Vaccination/Date Given: Yes Hx Pneumococcal Vaccination/Date Given: Yes Travel Risk - International Travel Have you traveled outside of the country in past 3 weeks: No - Coronavirus Screening Are you exhibiting any of the following symptoms?: Yes Symptoms: Shortness of Breath Close contact with a COVID-19 positive Pt in past 14-21 Days: No - Review of Systems Constitutional: No Fever Ears, Nose, & Throat: Nose Congestion Respiratory: Cough Musculoskeletal: Joint Pain (left hip) Neurological: Paralysis (on left side(chronic).) All Other Systems: Reviewed and Negative - Past Medical History Pertinent Past Medical History: Yes Neurological History: Seizures ENT History: No Pertinent History Cardiac History: No Pertinent History, Hypertension Respiratory History: No Pertinent History Endocrine Medical History: No Pertinent History Musculoskeletal History: No Pertinent History GI Medical History: No Pertinent History History: No Pertinent History Psycho-Social History: Other Male Reproductive Disorders: No Pertinent History Other Medical History: PT. 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 double hernia repair, multiple reconstruction surgerys to hand and arm/jaw - Social History Smoking Status: Never smoker Exposure to second hand smoke: No Drug Use: none Patient Lives Alone: No - Nursing Vital Signs Nursing Vital Signs: Initial Vital Signs O2 Sat by Pulse Oximetry 88 L 09/21/19 18:59 Pain Scale Pain Intensity 0 - Physical Exam General Appearance: alert Eye Exam: other (exotropia) Ears, Nose, Throat Exam: pharyngeal erythema (minimal) Respiratory Exam: normal breath sounds Cardiovascular Exam: normal heart sounds Gastrointestinal/Abdomen Exam: soft, normal bowel sounds Back Exam: No normal range of motion Extremity Exam: paralysis (left sided) Neurologic Exam: alert Skin Exam: other (warm erythematous area over left hip/left buttock/sacrum.) SpO2 Interpretation: hypoxic SpO2: 88 O2 Delivery: Room Air - Course Nursing assessment & vital signs reviewed: Yes - Radiology Exams Chest X-ray Interpretation: Teleradiologist Report (right mid to upper lung hazy opacity which may represent atelectasis versus airspace disease.) Ordered Tests: Active Orders 24 hr Category Date Time Status Dry Wall Applicator STAT Care 09/21/19 18:57 Active EKG-ER Only STAT Care 06/17/20 18:57 Active Velásquez [Catheter-[place] Velásquez] STAT Care 09/21/19 18:58 Active IV Insertion STAT Care 09/21/19 18:57 Active IV Insertion-2nd Peripheral STAT Care 09/21/19 18:57 Active Oxygen-ED Only Nasal Cannula 3 lpm Care 09/21/19 18:57 Active Pulse Oximetry (ED) STAT Care 09/21/19 18:57 Active CHEST 1 VIEW (PORTABLE) Stat Exams 09/21/19 20:47 Taken AMYLASE Stat Lab 09/21/19 20:45 Completed BLOOD CULTURE Stat Lab 09/21/19 20:45 Received CBC W DIFF Stat Lab 09/21/19 20:45 Completed CMP Stat Lab 09/21/19 20:45 Completed CULTURE,SPUTUM Stat Lab 09/21/19 20:49 Uncollected CULTURE,URINE Stat Lab 09/21/19 Received HIV 1/2 SOURCE ONLY Stat Lab 09/21/19 20:31 Completed LIPASE Stat Lab 09/21/19 20:45 Completed UA W/RFX UR CULTURE Stat Lab 09/21/19 Completed Medication Summary Generic Name Dose Route Start Last Admin Trade Name Freq PRN Reason Stop Dose Admin Sodium Chloride 1,000 mls @ 100 mls/hr 09/21/19 20:45 09/21/19 21:09 Sodium Chloride 0.9% 1000 Ml IV 10/21/19 20:44 100 mls/hr .Q10H JAH Administration Discontinued Medications Generic Name Dose Route Start Last Admin Trade Name Freq PRN Reason Stop Dose Admin Clindamycin HCl/Dextrose 600 mg in 50 mls @ 100 mls/hr 09/21/19 20:50 09/21/19 21:39 Clindamycin-D5w 600 Mg/50 Ml IV 09/21/19 21:19 Infused STAT STA Infusion Clindamycin HCl/Dextrose Confirm 09/21/19 21:06 Clindamycin-D5w 600 Mg/50 Ml Administered 09/21/19 21:07 Dose 600 mg in 50 mls @ ud IV .STK-MED ONE Lab/Rad Data: Laboratory Result Diagrams 09/21/19 20:45 09/21/19 20:45 Laboratory Results 09/21/19 09/21/19 09/21/19 Range/Units Unknown 21:11 20:45 WBC (4.0-10.5) K/mm3 RBC (4.1-5.6) M/mm3 Hgb (12.5-18.0) gm/dl Hct (42-50) % MCV (78-100) fl MCH (26-32) pg MCHC (32-36) g/dl RDW (11.5-14.0) % Plt Count (150-450) K/mm3 MPV (7.5-11.0) fl Gran % (36.0-66.0) % Eos # (Auto) (0-0.5) Absolute Lymphs (auto) (1.0-4.6) Absolute Monos (auto) (0.0-1.3) Lymphocytes % (24.0-44.0) % Monocytes % (0.0-12.0) % Eosinophils % (0.00-5.0) % Basophils % (0.0-0.4) % Absolute Granulocytes (1.4-6.9) Basophils # (0-0.4) Sodium (137-145) mmol/L Potassium (3.5-5.1) mmol/L Chloride (98-107) mmol/L Carbon Dioxide (22-30) mmol/L Anion Gap (5-15) MEQ/L BUN (9-20) mg/dL Creatinine (0.66-1.25) mg/dL Estimated GFR ML/MIN Glucose (74-106) mg/dL Calcium (8.4-10.2) mg/dL Total Bilirubin (0.2-1.3) mg/dL AST (17-59) U/L ALT (0-50) U/L Alkaline Phosphatase (38-126) U/L Serum Total Protein (6.3-8.2) g/dL Albumin (3.5-5.0) g/dL Amylase (30-110) U/L Lipase (23-300) U/L Urine Color YELLOW (YELLOW) Urine Appearance SLIGHTLY CLOUDY (CLEAR) Urine pH 5.0 (5-6) Ur Specific Matthews 1.015 (1.005-1.025) Urine Protein 30 (Negative) Urine Ketones NEGATIVE (NEGATIVE) Urine Blood NEGATIVE (0-5) Arturo/ul Urine Nitrite NEGATIVE (NEGATIVE) Urine Bilirubin NEGATIVE (NEGATIVE) Urine Urobilinogen NEGATIVE (0-1) mg/dL Ur Leukocyte Esterase NEGATIVE (NEGATIVE) Urine WBC (Auto) 3-5 (0-5) /HPF Urine RBC (Auto) 0-2 (0-2) /HPF U Epithel Cells (Auto) NONE (FEW) /HPF Urine Bacteria (Auto) NONE (NEGATIVE) /HPF Urine Mucus (Auto) SLIGHT (NEGATIVE) /HPF Urine Culture Reflexed ORDERED SEPARATELY (NO) Urine Glucose 50 (NEGATIVE) mg/dL HIV-1 Specimen Source (NEGATIVE) Influenza Type A Ag NEGATIVE (NEGATIVE) Influenza Type B Ag NEGATIVE (NEGATIVE) RSV (PCR) NEGATIVE (Negative) SARS-CoV-2 (PCR) NEGATIVE (NEGATIVE) Group A Strep Antibody NOT DETECTED (NEGATIVE) 09/21/19 09/21/19 09/21/19 Range/Units 20:45 20:45 20:31 WBC 17.4 H (4.0-10.5) K/mm3 RBC 4.40 (4.1-5.6) M/mm3 Hgb 13.8 (12.5-18.0) gm/dl Hct 39.4 L (42-50) % MCV 89.5 (78-100) fl MCH 31.4 (26-32) pg MCHC 35.0 (32-36) g/dl RDW 14.1 H (11.5-14.0) % Plt Count 264 (150-450) K/mm3 MPV 9.3 (7.5-11.0) fl Gran % 92.6 H (36.0-66.0) % Eos # (Auto) 0.01 (0-0.5) Absolute Lymphs (auto) 0.45 L (1.0-4.6) Absolute Monos (auto) 0.80 (0.0-1.3) Lymphocytes % 2.6 L (24.0-44.0) % Monocytes % 4.6 (0.0-12.0) % Eosinophils % 0.1 (0.00-5.0) % Basophils % 0.1 (0.0-0.4) % Absolute Granulocytes 16.14 H (1.4-6.9) Basophils # 0.02 (0-0.4) Sodium 125 L (137-145) mmol/L Potassium 4.4 (3.5-5.1) mmol/L Chloride 87 L (98-107) mmol/L Carbon Dioxide 25 (22-30) mmol/L Anion Gap 17.5 H (5-15) MEQ/L BUN 20 (9-20) mg/dL Creatinine 0.74 (0.66-1.25) mg/dL Estimated GFR > 60.0 ML/MIN Glucose 154 H (74-106) mg/dL Calcium 9.0 (8.4-10.2) mg/dL Total Bilirubin 0.60 (0.2-1.3) mg/dL AST 41 (17-59) U/L ALT 29 (0-50) U/L Alkaline Phosphatase 184 H (38-126) U/L Serum Total Protein 8.0 (6.3-8.2) g/dL Albumin 4.6 (3.5-5.0) g/dL Amylase 70 (30-110) U/L Lipase 83 (23-300) U/L Urine Color (YELLOW) Urine Appearance (CLEAR) Urine pH (5-6) Ur Specific Matthews (1.005-1.025) Urine Protein (Negative) Urine Ketones (NEGATIVE) Urine Blood (0-5) Arturo/ul Urine Nitrite (NEGATIVE) Urine Bilirubin (NEGATIVE) Urine Urobilinogen (0-1) mg/dL Ur Leukocyte Esterase (NEGATIVE) Urine WBC (Auto) (0-5) /HPF Urine RBC (Auto) (0-2) /HPF U Epithel Cells (Auto) (FEW) /HPF Urine Bacteria (Auto) (NEGATIVE) /HPF Urine Mucus (Auto) (NEGATIVE) /HPF Urine Culture Reflexed (NO) Urine Glucose (NEGATIVE) mg/dL HIV-1 Specimen Source PRESUMPTIVE NEGATIVE (NEGATIVE) Influenza Type A Ag (NEGATIVE) Influenza Type B Ag (NEGATIVE) RSV (PCR) (Negative) SARS-CoV-2 (PCR) (NEGATIVE) Group A Strep Antibody (NEGATIVE) - Progress Progress: unchanged Discussed with Dr.: García (obs) Counseled pt/family regarding: lab results, rad results - Departure Departure Disposition: Observation Clinical Impression: Cellulitis of left buttock, Pharyngitis, Hyponatremia, Seizure disorder, Pneumonia Condition: Stable Critical Care Time: No
[2019-09-21] MEDS ORDERED: Sodium Chloride 0.9% 1000 ML 1,000 ML IV SCH (20:45)
[2019-09-21] MEDS ORDERED: CLINDAMYCIN-D5W 600 MG/50 ML*** 600 MG/50 ML BAG IV STA (20:50)
[2019-09-21 20:55] LABS: Absolute Neutrophil Ct (ANC) 16.14 (1.4-6.9); BASOPHIL % 0.1 % (0.0-0.4); Basophil (Absolute #) 0.02 (0-0.4); Eosinophil % 0.1 % (0.00-5.0); Eosinophil (Absolute #) 0.01 (0-0.5); Hematocrit 39.4 % (42-50); Hemoglobin 13.8 gm/dl (12.5-18.0); Lymphocyte (Absolute #) 0.45 (1.0-4.6); Lymphocytes % 2.6 % (24.0-44.0); Mean Cell Volume 89.5 fl (78-100); Mean Corpuscular Hemoglobin 31.4 pg (26-32); Mean Platelet Volume 9.3 fl (7.5-11.0); Monocytes % 4.6 % (0.0-12.0); Neutrophil % 92.6 % (36.0-66.0); Platelet Count 264 K/mm3 (150-450); Red Cell Distribution Width 14.1 % (11.5-14.0); White Blood Count 17.4 K/mm3 (4.0-10.5)
[2019-09-21 21:00] LABS: ALBUMIN 4.6 g/dL (3.5-5.0); ALKALINE PHOSPHATASE 184 U/L (38-126); AMYLASE 70 U/L (30-110); ANION GAP 17.5 MEQ/L (5-15); BLOOD UREA NITROGEN 20 mg/dL (9-20); CHLORIDE 87 mmol/L (98-107); Carbon Dioxide 25 mmol/L (22-30); Creatinine 1 0.74 mg/dL (0.66-1.25); Glucose 154 mg/dL (74-106); LIPASE 83 U/L (23-300); Potassium 4.4 mmol/L (3.5-5.1); SGOT/AST 41 U/L (17-59); SGPT/ALT 29 U/L (0-50); SODIUM 125 mmol/L (137-145)
[2019-09-21] MEDS ORDERED: CLINDAMYCIN-D5W 600 MG/50 ML*** 600 MG/50 ML BAG IV ONE (21:06)
[2019-09-21 21:51] LABS: INFLUENZA A NEGATIVE (NEGATIVE); INFLUENZA B NEGATIVE (NEGATIVE); RESPIRATORY SYNCTIAL VIRUS NEGATIVE (Negative)
[2019-09-22] MEDS ORDERED: TYLENOL 325 MG PO PRN (00:55)
[2019-09-22] MEDS ORDERED: Zofran 4 MG/2 ML VIAL IV PRN (00:55)
[2019-09-22] MEDS ORDERED: PROVENTIL 2.5 MG/3 ML NEB IH SCH (03:00)
[2019-09-22] MEDS ORDERED: PROVENTIL 2.5 MG/3 ML NEB IH PRN (03:07)
[2019-09-22 05:13] LABS: Absolute Neutrophil Ct (ANC) 13.34 (1.4-6.9); BASOPHIL % 0.1 % (0.0-0.4); Basophil (Absolute #) 0.02 (0-0.4); Eosinophil (Absolute #) 0 (0-0.5); Hematocrit 34.4 % (42-50); Hemoglobin 11.9 gm/dl (12.5-18.0); Lymphocyte (Absolute #) 0.59 (1.0-4.6); Mean Cell Volume 90.1 fl (78-100); Mean Corpuscular Hemoglobin 31.2 pg (26-32); Mean Corpuscular Hgb Concent. 34.6 g/dl (32-36); Mean Platelet Volume 9.1 fl (7.5-11.0); Monocyte (Absolute #) 0.73 (0.0-1.3); Neutrophil % 90.9 % (36.0-66.0); Platelet Count 225 K/mm3 (150-450); Red Blood Count 3.82 M/mm3 (4.1-5.6); White Blood Count 14.7 K/mm3 (4.0-10.5)
[2019-09-22 05:28] LABS: ALBUMIN 3.8 g/dL (3.5-5.0); ALKALINE PHOSPHATASE 144 U/L (38-126); ANION GAP 14.2 MEQ/L (5-15); BLOOD UREA NITROGEN 22 mg/dL (9-20); CHLORIDE 90 mmol/L (98-107); Calcium 8.1 mg/dL (8.4-10.2); Carbon Dioxide 25 mmol/L (22-30); Creatinine 1 0.63 mg/dL (0.66-1.25); Glucose 138 mg/dL (74-106); Potassium 4.1 mmol/L (3.5-5.1); SGOT/AST 36 U/L (17-59); SGPT/ALT 27 U/L (0-50); SODIUM 124 mmol/L (137-145); Total Protein 6.7 g/dL (6.3-8.2)
[2019-09-22] MEDS: CLINDAMYCIN-D5W 600 MG/50 ML*** 600 MG/50 ML BAG IV SCH ×3 (05:33→18:12)
[2019-09-22] MEDS: VENTOLIN COMMON CANISTER IH SCH ×2 (07:18→18:45)
[2019-09-22 07:31] LABS: Slide Review 1 YES
[2019-09-22] MEDS: Zithromax 500 MG/ 250 ML NaCl Premix 500 MG/250 ML IVPB IV SCH (09:03)
[2019-09-22] MEDS: Sodium Chloride 0.9% 1000 ML 1,000 ML IV SCH ×2 (09:03→21:41)
--- NOTE | 2019-09-22 09:33 | XRAY ---
Indication: Cough. Suspect Covid 19. Comparison: May 29, 2018. Portable chest now demonstrates hazy right upper lobe airspace disease without consolidation/large effusion. Heart remains borderline enlarged. Bony thorax again demonstrates osteopenia, degenerative changes, scoliosis, chronic left shoulder/left rib deformities, and left chest electronic stimulator device/lead. Comment: Preliminary interpretation was made by C. No critical discrepancy.
[2019-09-22] MEDS ORDERED: MEDICATION INTERVENTION MC SCH ×3 (11:00)
[2019-09-22] MEDS: Zestril 20 MG PO SCH ×2 (11:22→20:06)
[2019-09-22] MEDS: CLARITIN 10 MG PO SCH (11:22)
[2019-09-22] MEDS: LIORESAL 10 MG PO SCH ×2 (11:22→20:06)
--- NOTE | 2019-09-22 11:39 | XRAY ---
Indication: Pain. Paraplegic. Comparison: None AP pelvis and 2 view left and right hips demonstrates osteopenia, old left intertrochanteric fracture, moderate left hip degenerative arthropathy, moderate lower lumbar degenerative spondylosis, Velásquez catheter, partially visualized right abdomen/pelvis stimulator device, and left lower renal macro-calculi largest 2 cm. No other bony, articular, or soft tissue abnormalities.
[2019-09-22] MEDS: PATIENT OWN MEDICATION PO SCH ×8 (15:03→20:11)
[2019-09-22] MEDS ORDERED: NORCO 5/325 MG PO PRN (15:19)
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
[2019-09-22] MEDS: ENOXAPARIN SODIUM SQ SCH (15:48)
[2019-09-22] MEDS: Metamucil PACKET PO SCH (20:10)
[2019-09-22] MEDS: Bactroban OINTMENT TP SCH (20:55)
[2019-09-22] MEDS ORDERED: ESLICARBAZEPINE ACETATE 600 MG PO SCH (22:00)
[2019-09-22] MEDS ORDERED: PSYLLIUM HUSK 3.4 GM PO SCH (22:00)
[2019-09-22] MEDS ORDERED: BRIVARACETAM 100 MG PO SCH (22:00)
[2019-09-22] MEDS ORDERED: [UNRECOGNIZED DRUG - OTHER] PO SCH (22:00)
[2019-09-22] MEDS ORDERED: NON-FORMULARY ITEM (Baclofen [Baclofen] 20 MG) PO SCH (22:00)
[2019-09-23] MEDS: CLINDAMYCIN-D5W 600 MG/50 ML*** 600 MG/50 ML BAG IV SCH ×2 (00:13→05:54)
[2019-09-23] MEDS: VENTOLIN COMMON CANISTER IH SCH ×2 (07:26→20:20)
[2019-09-23] MEDS: Sodium Chloride 0.9% 1000 ML 1,000 ML IV SCH ×4 (07:41→18:28)
[2019-09-23] MEDS: Bactroban OINTMENT TP SCH ×2 (09:09→22:20)
[2019-09-23] MEDS: ENOXAPARIN SODIUM SQ SCH (09:10)
[2019-09-23] MEDS: CLARITIN 10 MG PO SCH (09:10)
[2019-09-23] MEDS: PATIENT OWN MEDICATION PO SCH ×8 (09:11→22:17)
[2019-09-23] MEDS: LIORESAL 10 MG PO SCH ×2 (09:11→22:13)
[2019-09-23] MEDS: Zestril 20 MG PO SCH ×2 (09:12→22:13)
[2019-09-23] MEDS: Zithromax 500 MG/ 250 ML NaCl Premix 500 MG/250 ML IVPB IV SCH (09:13)
[2019-09-23 09:48] LABS: BASOPHIL % 0.1 % (0.0-0.4); Basophil (Absolute #) 0.01 (0-0.4); Eosinophil % 0.1 % (0.00-5.0); Eosinophil (Absolute #) 0.01 (0-0.5); Hematocrit 29.3 % (42-50); Lymphocyte (Absolute #) 0.66 (1.0-4.6); Lymphocytes % 6.6 % (24.0-44.0); Mean Cell Volume 92.7 fl (78-100); Mean Corpuscular Hemoglobin 31.6 pg (26-32); Mean Corpuscular Hgb Concent. 34.1 g/dl (32-36); Mean Platelet Volume 8.6 fl (7.5-11.0); Neutrophil % 87.2 % (36.0-66.0); Platelet Count 186 K/mm3 (150-450); Red Blood Count 3.16 M/mm3 (4.1-5.6); Red Cell Distribution Width 14.4 % (11.5-14.0)
[2019-09-23] MEDS ORDERED: PHARMACY DOSING REQUIRED: VANCOMYCIN IV STA (10:11)
[2019-09-23] MEDS: Acidophilus TABLET PO SCH (10:46)
[2019-09-23] MEDS: VANCOMYCIN 2 GRAM/400 ML BAG 2 GM/400 ML PIGGYBACK IV SCH ×2 (10:46→22:17)
[2019-09-23 11:10] LABS: ALKALINE PHOSPHATASE 113 U/L (38-126); ANION GAP 12.7 MEQ/L (5-15); BLOOD UREA NITROGEN 29 mg/dL (9-20); CHLORIDE 98 mmol/L (98-107); Calcium 7.4 mg/dL (8.4-10.2); Carbon Dioxide 24 mmol/L (22-30); Creatinine 1 1.12 mg/dL (0.66-1.25); Glucose 134 mg/dL (74-106); Potassium 3.6 mmol/L (3.5-5.1); SGOT/AST 33 U/L (17-59); SGPT/ALT 28 U/L (0-50); SODIUM 131 mmol/L (137-145); Total Protein 5.8 g/dL (6.3-8.2)
--- NOTE | 2019-09-23 12:29 | XRAY ---
Indication: Possible aspiration. Modified barium swallow study was performed bedside by the Department of speech therapy with fluoroscopic assistance provided. Full report and recommendations will be reported separately. Approximately 2 minutes 34 seconds fluoroscopy used.
--- NOTE | 2019-09-23 18:00 | PCM.NOTE ---
Date and Time: 09/23/19 175 Subjective Assessment: Pt is tolerating regular diet, just needs to be told to slow down and swallow. When asked if he has pain, he says, "not now." However when he is turned he experiences quite a bit of pain. - Review of Systems Constitutional: No Fever (tmax 100.0) Abdominal/Gastrointestinal: No Vomiting Objective Exam General Appearance: no apparent distress, alert Neurologic Exam: cooperative, other (speaks slowly but answers questions.) Skin Exam: warm, dry, other (L buttock with decreased erythema, mild induration of approx 5x6cm area, ttp. on the left upper leg there are several irregular patches of erythema from the thigh to the hip jung-laterally.) Wound Assessment: Skin/Wound Assessment Wound/Incision Assessment Start: 09/22/19 00:00 Text: Status: Active Freq: Q6H Protocol: Document 09/23/19 14:00 CINDY (Rec: 09/23/19 14:18 CINDY [id number]) Wound/Incision Assessment Left Calf Wound Assessment Shift Assessment Wound Type cellulitis Wound Stage Non Pressure Wound Drainage Odor None/Absent Comment barrier cream applied Left Thigh Wound Assessment Shift Assessment Wound Type CELLULITIS Wound Stage Non Pressure Wound Drainage Odor None/Absent General Appearance Open to air Comment barrier cream. Wound Photo Photo Taken No Ears, Nose, Throat Exam: moist mucous membranes Neck Exam: normal inspection Cardiovascular Exam: regular rate/rhythm, normal heart sounds, No murmur Gastrointestinal/Abdomen Exam: soft, normal bowel sounds, No tenderness OBJECTIVE DATA Vital Signs: Vital Signs - 24 hr Temp Pulse Resp BP Pulse Ox 09/23/19 16:00 97.9 F 102 H 20 136/78 97 09/23/19 11:26 97.4 F 103 H 21 93/52 93 L 09/23/19 07:36 97.6 F 101 H 22 94/60 96 09/23/19 07:26 105 H 20 96 09/23/19 03:50 99.5 F 101 H 20 87/49 94 L 09/22/19 23:47 100 F 99 H 19 102/56 96 09/22/19 20:00 97.9 F 100 H 23 86/50 84 L 09/22/19 18:50 93 L 09/22/19 18:46 106 H 18 93 L Pain Assessment - Last Documented Pain Intensity 0 Pain Scale Used FLACC Intake and Output: Intake & Output 09/21/19 09/22/19 09/23/19 09/24/19 11:59 11:59 11:59 11:59 Intake Total 2660 1662 Output Total 145 685 1071 Balance -900 4880 312 Weight 93.2 kg 93.2 kg Lab Results: Lab Results-Last 24 Hours 09/23/19 09/23/19 Range/Units 09:40 09:40 WBC 10.0 (4.0-10.5) K/mm3 RBC 3.16 L (4.1-5.6) M/mm3 Hgb 10.0 L (12.5-18.0) gm/dl Hct 29.3 L (42-50) % MCV 92.7 (78-100) fl MCH 31.6 (26-32) pg MCHC 34.1 (32-36) g/dl RDW 14.4 H (11.5-14.0) % Plt Count 186 (150-450) K/mm3 MPV 8.6 (7.5-11.0) fl Gran % 87.2 H (36.0-66.0) % Eos # (Auto) 0.01 (0-0.5) Absolute Lymphs (auto) 0.66 L (1.0-4.6) Absolute Monos (auto) 0.60 (0.0-1.3) Lymphocytes % 6.6 L (24.0-44.0) % Monocytes % 6.0 (0.0-12.0) % Eosinophils % 0.1 (0.00-5.0) % Basophils % 0.1 (0.0-0.4) % Absolute Granulocytes 8.70 H (1.4-6.9) Basophils # 0.01 (0-0.4) Sodium 131 L D (137-145) mmol/L Potassium 3.6 (3.5-5.1) mmol/L Chloride 98 (98-107) mmol/L Carbon Dioxide 24 (22-30) mmol/L Anion Gap 12.7 (5-15) MEQ/L BUN 29 H (9-20) mg/dL Creatinine 1.12 (0.66-1.25) mg/dL Estimated GFR > 60.0 ML/MIN Glucose 134 H (74-106) mg/dL Calcium 7.4 L (8.4-10.2) mg/dL Total Bilirubin 0.30 (0.2-1.3) mg/dL AST 33 (17-59) U/L ALT 28 (0-50) U/L Alkaline Phosphatase 113 (38-126) U/L Serum Total Protein 5.8 L (6.3-8.2) g/dL Albumin 3.0 L (3.5-5.0) g/dL Radiology Exams: Radiology Procedures Category Date Time Status CHEST 1 VIEW (PORTABLE) Stat Exams 09/21/19 20:47 Completed HIP ALANA (4V) INCL PELV IF DONE Routine Exams 09/22/19 11:17 Completed MODIFIED BARIUM SWALLOW EXAM Urgent Exams 09/23/19 11:30 Completed Multi-Disciplinary Progress Notes: Multi-Disciplinary Progress Notes 09/23/19 12:27 Case Management Note by Jessenia Miranda/Cherise MAI AT [facility]. SHE REQUESTS TO BE UPDATED AT TIME OF DC AT [phone]. SHE ALSO REQUESTS DC INSTRUCTIONS/MED LITS AND SUMMARY(IF AVAILABLE) BE SENT TO [phone]. Initialized on 09/23/19 12:27 - END OF NOTE 09/23/19 10:26 Pharmacy Note by Trevon Conte Pharmacokinetic dosing service Date: 09/23/19 Time: 1030 Objective: Vancomycin dosing for Cellulitis Buttock Patient: lina renteria Floor: 102 Age: 59 yo Serum creatinine: 0.63 mg/dL Height: 72 Inches Weight (kg): 93 Diagnosis: Cellulitis/ Buttock and Aspiration Pneumonia Relevant medical/social history: left side paralysis, previous brain injury, seizures Cultures and sensitivities: no growth to date Other labs: wbc = 10 sr cr = 0.63 Assessment: IBW (kg): 77.60 Dosing wt(kg): 93 Estimated Creatinine clearance (ml/min): 130 Clearance limited to 130 ml/min to reduce risk of overdosing. CRCL method: Cockcroft and Gault using ibw(default). Drug selected: Vancomycin Loading dose (mg): 0 Vd (liters): 69.8 (factor used: 0.75 L/kg) Donald (hr-1): 0.112 Half life (hrs): 6.19 Recommended dose: 2000 mg Interval: 12 hrs Infusion time (hrs): 3 Predicted peak (mcg/mL): 32.9 Predicted trough (mcg/mL): 12.01 Total body weight is being used for Vancomycin dosing. Renal function is stable [XXXX ] /unstable [ ] Recommendations: Give Vancomycin 2000 mg q 12 hrs with an expected Cpeak of 32.9 mcg/ml and an expected Ctrough of 12.01 mcg/ml Renal dosing of other antibiotics (review renal dosing of other medications and list guidelines here): Thank you for the consult, will continue to follow. Signature: Danish Conte Initialized on 09/23/19 10:26 - END OF NOTE Assessment/Plan (1) Cellulitis of left buttock Current Visit: Yes Status: Acute Assessment & Plan: On the buttock it is improved, but there are more areas of erythema on the leg. Changing clindamycin to vancomycin (finished 2d of clindamycin). Code(s): L03.317 - CELLULITIS OF BUTTOCK (2) Pneumonia Current Visit: Yes Status: Suspected Qualifiers: Pneumonia type: aspiration pneumonia Aspiration pneumonia type: unspecified Laterality: right Lung location: upper lobe of lung Qualified Code(s): J69.0 - Pneumonitis due to inhalation of food and vomit Assessment & Plan: On zithromax as well as the vancomycin. Code(s): J18.9 - PNEUMONIA, UNSPECIFIED ORGANISM (3) Seizure disorder Current Visit: Yes Status: Chronic Code(s): G40.909 - EPILEPSY, UNSP, NOT INTRACTABLE, WITHOUT STATUS EPILEPTICUS (4) Left hemiparesis Current Visit: No Status: Chronic Code(s): G81.94 - HEMIPLEGIA, UNSPECIFIED AFFECTING LEFT NONDOMINANT SIDE (5) Post-traumatic brain syndrome Current Visit: No Status: Chronic Code(s): F07.81 - POSTCONCUSSIONAL SYNDROME
[2019-09-23] MEDS: Metamucil PACKET PO SCH (22:13)
[2019-09-24] MEDS: Sodium Chloride 0.9% 1000 ML 1,000 ML IV SCH ×2 (06:31→21:01)
[2019-09-24] MEDS: VENTOLIN COMMON CANISTER IH SCH ×2 (07:12→17:29)
[2019-09-24] MEDS: LIORESAL 10 MG PO SCH ×2 (10:42→22:35)
[2019-09-24] MEDS: Zestril 20 MG PO SCH ×2 (10:43→22:41)
[2019-09-24] MEDS: ENOXAPARIN SODIUM SQ SCH (10:43)
[2019-09-24] MEDS: CLARITIN 10 MG PO SCH (10:43)
[2019-09-24] MEDS: Bactroban OINTMENT TP SCH ×2 (10:43→22:34)
[2019-09-24] MEDS: Acidophilus TABLET PO SCH (10:43)
[2019-09-24] MEDS: PATIENT OWN MEDICATION PO SCH ×8 (10:44→22:40)
[2019-09-24] MEDS: VANCOMYCIN 2 GRAM/400 ML BAG 2 GM/400 ML PIGGYBACK IV SCH ×2 (10:49→22:39)
[2019-09-24] MEDS: Zithromax 500 MG/ 250 ML NaCl Premix 500 MG/250 ML IVPB IV SCH (10:49)
[2019-09-24 11:56] LABS: Absolute Neutrophil Ct (ANC) 5.12 (1.4-6.9); BASOPHIL % 0.2 % (0.0-0.4); Basophil (Absolute #) 0.01 (0-0.4); Eosinophil % 1.3 % (0.00-5.0); Eosinophil (Absolute #) 0.08 (0-0.5); Hematocrit 31.3 % (42-50); Hemoglobin 10.6 gm/dl (12.5-18.0); Lymphocyte (Absolute #) 0.76 (1.0-4.6); Lymphocytes % 12.1 % (24.0-44.0); Mean Cell Volume 91.8 fl (78-100); Mean Corpuscular Hemoglobin 31.1 pg (26-32); Mean Corpuscular Hgb Concent. 33.9 g/dl (32-36); Mean Platelet Volume 9.3 fl (7.5-11.0); Monocyte (Absolute #) 0.31 (0.0-1.3); Monocytes % 4.9 % (0.0-12.0); Neutrophil % 81.5 % (36.0-66.0); Platelet Count 231 K/mm3 (150-450); Red Blood Count 3.41 M/mm3 (4.1-5.6); Red Cell Distribution Width 14.3 % (11.5-14.0); White Blood Count 6.3 K/mm3 (4.0-10.5)
[2019-09-24 12:10] LABS: ANION GAP 12.7 MEQ/L (5-15); BLOOD UREA NITROGEN 14 mg/dL (9-20); CHLORIDE 98 mmol/L (98-107); Calcium 8.1 mg/dL (8.4-10.2); Carbon Dioxide 25 mmol/L (22-30); Creatinine 1 0.48 mg/dL (0.66-1.25); Glucose 138 mg/dL (74-106); Potassium 3.2 mmol/L (3.5-5.1); SODIUM 133 mmol/L (137-145)
--- NOTE | 2019-09-24 16:32 | PCM.NOTE ---
Date and Time: 09/24/19 1584 Subjective Assessment: Pt is more talkative today. Indicates his pain in L leg is chronic. is alecia po well. - Review of Systems Constitutional: No Fever Abdominal/Gastrointestinal: No Vomiting Objective Exam General Appearance: no apparent distress, obese Neurologic Exam: alert, cooperative Skin Exam: warm, dry, other (LLE - there is erythema distally and just proximal to the knee; there is an area of fading erythema mid thigh. L buttock with no erythema, no induration, nttp), No rash Wound Assessment: Skin/Wound Assessment Wound/Incision Assessment Start: 09/22/19 00:00 Text: Status: Active Freq: Q6H Protocol: Document 09/24/19 14:00 (Rec: 09/24/19 16:05 [id number]) Wound/Incision Assessment Left Calf Wound Assessment Shift Assessment Wound Type cellulitis Wound Stage Non Pressure Wound Drainage Odor None/Absent General Appearance Open to air,Reddened Surrounding Tissue Antares Comment barrier cream applied Left Thigh Wound Assessment Shift Assessment Wound Type CELLULITIS Wound Stage Non Pressure Wound Drainage Amount None Drainage Odor None/Absent General Appearance Open to air,Reddened Comment barrier cream applied Wound Photo Photo Taken No Eye Exam: eyes nml inspection Respiratory Exam: normal breath sounds, lungs clear, No crackles/rales, No rhonchi, No wheezing Cardiovascular Exam: regular rate/rhythm, normal heart sounds, No murmur Gastrointestinal/Abdomen Exam: soft, normal bowel sounds, No tenderness, No di stention, No guarding, No rebound OBJECTIVE DATA Vital Signs: Vital Signs - 24 hr Temp Pulse Resp BP Pulse Ox 09/24/19 12:00 98.9 F 107 H 22 112/59 95 09/24/19 08:00 98.1 F 101 H 20 110/62 93 L 09/24/19 07:16 100 H 20 94 L 09/24/19 04:00 99.3 F 104 H 18 98/53 94 L 09/24/19 00:00 97.9 F 108 H 20 137/76 95 09/23/19 20:21 110 H 20 97 09/23/19 20:00 98.8 F 112 H 19 130/69 96 Pain Assessment - Last Documented Pain Intensity 0 Pain Scale Used 0-10 Pain Scale Intake and Output: Intake & Output 09/22/19 09/23/19 09/24/1909/24/20 11:59 11:59 11:59 11:59 Intake Total 0447 4118 Output Total 077 253 0486 Balance -900 9780 818 Weight 93.2 kg 93.2 kg 94.5 kg Lab Results: Lab Results-Last 24 Hours 09/24/19 09/24/19 Range/Units 09:34 10:30 WBC 6.3 (4.0-10.5) K/mm3 RBC 3.41 L (4.1-5.6) M/mm3 Hgb 10.6 L (12.5-18.0) gm/dl Hct 31.3 L (42-50) % MCV 91.8 (78-100) fl MCH 31.1 (26-32) pg MCHC 33.9 (32-36) g/dl RDW 14.3 H (11.5-14.0) % Plt Count 231 (150-450) K/mm3 MPV 9.3 (7.5-11.0) fl Gran % 81.5 H (36.0-66.0) % Eos # (Auto) 0.08 (0-0.5) Absolute Lymphs (auto) 0.76 L (1.0-4.6) Absolute Monos (auto) 0.31 (0.0-1.3) Lymphocytes % 12.1 L (24.0-44.0) % Monocytes % 4.9 (0.0-12.0) % Eosinophils % 1.3 (0.00-5.0) % Basophils % 0.2 (0.0-0.4) % Absolute Granulocytes 5.12 (1.4-6.9) Basophils # 0.01 (0-0.4) Sodium 133 L (137-145) mmol/L Potassium 3.2 L (3.5-5.1) mmol/L Chloride 98 (98-107) mmol/L Carbon Dioxide 25 (22-30) mmol/L Anion Gap 12.7 (5-15) MEQ/L BUN 14 (9-20) mg/dL Creatinine 0.48 L (0.66-1.25) mg/dL Estimated GFR > 60.0 ML/MIN Glucose 138 H (74-106) mg/dL Calcium 8.1 L (8.4-10.2) mg/dL Radiology Exams: Radiology Procedures Category Date Time Status MODIFIED BARIUM SWALLOW EXAM Urgent Exams 09/23/19 11:30 Completed Assessment/Plan (1) Cellulitis of left buttock Current Visit: Yes Status: Acute Assessment & Plan: Seems to be improving. Day #2 vancomycin. Code(s): L03.317 - CELLULITIS OF BUTTOCK (2) Pneumonia Current Visit: Yes Status: Suspected Qualifiers: Pneumonia type: aspiration pneumonia Aspiration pneumonia type: unspecified Laterality: right Lung location: upper lobe of lung Qualified Code(s): J69.0 - Pneumonitis due to inhalation of food and vomit Assessment & Plan: Exam benign. Day #3 zithromax. Code(s): J18.9 - PNEUMONIA, UNSPECIFIED ORGANISM (3) Seizure disorder Current Visit: Yes Status: Chronic Code(s): G40.909 - EPILEPSY, UNSP, NOT INTRACTABLE, WITHOUT STATUS EPILEPTICUS (4) Left hemiparesis Current Visit: No Status: Chronic Code(s): G81.94 - HEMIPLEGIA, UNSPECIFIED AFFECTING LEFT NONDOMINANT SIDE (5) Post-traumatic brain syndrome Current Visit: No Status: Chronic Code(s): F07.81 - POSTCONCUSSIONAL SYNDROME
[2019-09-24] MEDS: Metamucil PACKET PO SCH (22:36)
[2019-09-25] MEDS: Sodium Chloride 0.9% 1000 ML 1,000 ML IV SCH ×4 (07:23→21:17)
[2019-09-25] MEDS: VENTOLIN COMMON CANISTER IH SCH ×2 (07:45→17:11)
[2019-09-25 08:58] LABS: ANION GAP 11.7 MEQ/L (5-15); BLOOD UREA NITROGEN 13 mg/dL (9-20); CHLORIDE 99 mmol/L (98-107); Calcium 7.9 mg/dL (8.4-10.2); Carbon Dioxide 25 mmol/L (22-30); Creatinine 1 0.41 mg/dL (0.66-1.25); Glucose 114 mg/dL (74-106); MAGNESIUM 1.8 mg/dL (1.6-2.3); Potassium 3.6 mmol/L (3.5-5.1); SODIUM 132 mmol/L (137-145)
[2019-09-25] MEDS: ENOXAPARIN SODIUM SQ SCH (09:05)
[2019-09-25] MEDS: Bactroban OINTMENT TP SCH ×2 (09:05→21:40)
[2019-09-25] MEDS: CLARITIN 10 MG PO SCH (09:05)
[2019-09-25] MEDS: Acidophilus TABLET PO SCH (09:05)
[2019-09-25] MEDS: LIORESAL 10 MG PO SCH ×2 (09:06→22:41)
[2019-09-25] MEDS: PATIENT OWN MEDICATION PO SCH ×8 (09:06→22:47)
[2019-09-25] MEDS: Zithromax 500 MG/ 250 ML NaCl Premix 500 MG/250 ML IVPB IV SCH (09:07)
[2019-09-25] MEDS: Zestril 20 MG PO SCH ×2 (09:07→22:43)
[2019-09-25] MEDS ORDERED: TROUGH DRUG LEVELS IJ ONE (09:30)
[2019-09-25] MEDS: VANCOMYCIN 2 GRAM/400 ML BAG 2 GM/400 ML PIGGYBACK IV SCH ×2 (10:49→22:48)
--- NOTE | 2019-09-25 19:49 | PCM.NOTE ---
Date and Time: 09/25/191942 Subjective Assessment: Pt in good humor today. Brother feels cellulitis is improved. Pt alecia po well. - Review of Systems Constitutional: No Fever Musculoskeletal: Arthralgias Skin: Cellulitis Objective Exam General Appearance: no apparent distress, alert Neurologic Exam: cooperative, normal mood/affect Skin Exam: warm, dry, other (LLE distally mild erythema; thigh with very little erythema, L buttock without erythema or induration), No rash Wound Assessment: Skin/Wound Assessment Wound/Incision Assessment Start: 09/22/19 00:00 Text: Status: Active Freq: Q6H Protocol: Document 09/25/19 14:00 CINDY (Rec: 09/25/19 14:10 CINDY [id number]) Wound/Incision Assessment Left Calf Wound Assessment Shift Assessment Wound Type cellulitis Wound Stage Non Pressure Wound Drainage Odor None/Absent General Appearance Open to air,Reddened Surrounding Tissue [place] Comment barrier cream applied Left Thigh Wound Assessment Shift Assessment Wound Type CELLULITIS Wound Stage Non Pressure Wound Drainage Amount None Drainage Odor None/Absent General Appearance Open to air,Reddened Comment barrier cream applied Wound Photo Photo Taken No Respiratory Exam: normal breath sounds, lungs clear, No crackles/rales, No rhonchi, No wheezing Cardiovascular Exam: regular rate/rhythm, normal heart sounds, No murmur OBJECTIVE DATA Vital Signs: Vital Signs - 24 hr Temp Pulse Resp BP Pulse Ox 09/25/19 17:13 106 H 16 94 L 09/25/19 16:00 98.5 F 104 H 20 109/58 95 09/25/19 12:00 99.4 F 107 H 22 118/58 96 09/25/19 08:00 98.8 F 101 H 21 125/69 95 09/25/19 07:49 100 H 18 96 09/25/19 04:00 99.0 F 101 H 24 117/65 95 09/25/19 00:00 99.5 F 113 H 28 H 117/57 94 L 09/24/19 20:00 99.9 F 111 H 20 111/60 93 L Pain Assessment - Last Documented Pain Intensity 0 Pain Scale Used 0-10 Pain Scale Intake and Output: Intake & Output 09/23/19 09/24/19 09/25/19 09/26/19 11:59 11:59 11:59 11:59 Intake Total 2660 4118 3641 1360 Output Total 750 3300 1275 2000 Balance 9678 609 6381 -671 Weight 93.2 kg 94.5 kg 94.2 kg Lab Results: Lab Results-Last 24 Hours 09/25/19 09/25/19 Range/Units 08:05 09:30 Sodium 132 L (137-145) mmol/L Potassium 3.6 (3.5-5.1) mmol/L Chloride 99 (98-107) mmol/L Carbon Dioxide 25 (22-30) mmol/L Anion Gap 11.7 (5-15) MEQ/L BUN 13 (9-20) mg/dL Creatinine 0.41 L (0.66-1.25) mg/dL Estimated GFR > 60.0 ML/MIN Glucose 114 H (74-106) mg/dL Calcium 7.9 L (8.4-10.2) mg/dL Magnesium 1.8 (1.6-2.3) mg/dL Vancomycin Trough 15.89 (10-20) ug/mL Assessment/Plan (1) Cellulitis of left buttock Current Visit: Yes Status: Acute Assessment & Plan: On Vancomycin day #3 and it has made a big improvement. Maybe another 1-2 days on IV antibiotics and pt could be ready to d/c to home. Code(s): L03.317 - CELLULITIS OF BUTTOCK (2) Pneumonia Current Visit: Yes Status: Suspected Qualifiers: Pneumonia type: aspiration pneumonia Aspiration pneumonia type: unspecified Laterality: right Lung location: upper lobe of lung Qualified Code(s): J69.0 - Pneumonitis due to inhalation of food and vomit Assessment & Plan: Zithromax day #4, would d/c after tomorrow. Clinically much improved. Discussed with pt's brother that typically would not re-xray at this time unless clinically indicated but likely needs a repeat in 1 mo. Speech therapy had evaluated for aspiration and gave suggestions for decreasing aspiration. Code(s): J18.9 - PNEUMONIA, UNSPECIFIED ORGANISM (3) Seizure disorder Current Visit: Yes Status: Chronic Code(s): G40.909 - EPILEPSY, UNSP, NOT INTRACTABLE, WITHOUT STATUS EPILEPTICUS (4) Left hemiparesis Current Visit: No Status: Chronic Code(s): G81.94 - HEMIPLEGIA, UNSPECIFIED AFFECTING LEFT NONDOMINANT SIDE (5) Post-traumatic brain syndrome Current Visit: No Status: Chronic Code(s): F07.81 - POSTCONCUSSIONAL SYNDROME
[2019-09-25] MEDS: Metamucil PACKET PO SCH (22:43)
[2019-09-26 05:26] LABS: Hematocrit 30.9 % (42-50); Mean Cell Volume 94.5 fl (78-100); Mean Corpuscular Hemoglobin 30.6 pg (26-32); Mean Corpuscular Hgb Concent. 32.4 g/dl (32-36); Mean Platelet Volume 10.5 fl (7.5-11.0); Platelet Count 177 K/mm3 (150-450); Red Blood Count 3.27 M/mm3 (4.1-5.6); Red Cell Distribution Width 14.7 % (11.5-14.0); White Blood Count 7.6 K/mm3 (4.0-10.5)
[2019-09-26 05:36] LABS: ANION GAP 12.7 MEQ/L (5-15); BLOOD UREA NITROGEN 13 mg/dL (9-20); CHLORIDE 102 mmol/L (98-107); Calcium 8.3 mg/dL (8.4-10.2); Carbon Dioxide 24 mmol/L (22-30); Creatinine 1 0.39 mg/dL (0.66-1.25); Glucose 102 mg/dL (74-106); MAGNESIUM 1.8 mg/dL (1.6-2.3); SODIUM 134 mmol/L (137-145)
[2019-09-26 05:37] LABS: Potassium 4.1 mmol/L (3.5-5.1)
[2019-09-26] MEDS: VENTOLIN COMMON CANISTER IH SCH ×2 (07:25→17:10)
[2019-09-26] MEDS: Sodium Chloride 0.9% 1000 ML 1,000 ML IV SCH ×2 (07:41→16:44)
[2019-09-26 08:02] LABS: BAND 2 % (0.0-2.0); Eosinophil 2 % (0.00-3.0); Lymphocytes 19 % (24-44); Monocyte 4 % (0.0-12.0); Neutrophils 73 % (36.-66.); Platelet Estimate NORMAL (NORMAL); Total Cells Counted 100; Toxic Granulation RARE
[2019-09-26] MEDS: Bactroban OINTMENT TP SCH ×2 (09:00→22:48)
[2019-09-26] MEDS: Acidophilus TABLET PO SCH (09:00)
[2019-09-26] MEDS: PATIENT OWN MEDICATION PO SCH ×8 (09:00→22:51)
[2019-09-26] MEDS: CLARITIN 10 MG PO SCH (09:00)
[2019-09-26] MEDS: ENOXAPARIN SODIUM SQ SCH (09:00)
[2019-09-26] MEDS: LIORESAL 10 MG PO SCH ×2 (09:00→22:48)
[2019-09-26] MEDS: Zestril 20 MG PO SCH ×2 (09:01→22:48)
[2019-09-26] MEDS: Zithromax 500 MG/ 250 ML NaCl Premix 500 MG/250 ML IVPB IV SCH (09:01)
[2019-09-26] MEDS: VANCOMYCIN 2 GRAM/400 ML BAG 2 GM/400 ML PIGGYBACK IV SCH ×2 (09:06→22:49)
--- NOTE | 2019-09-26 09:46 | XRAY ---
Indication: Cough. Short of breath. Comparison: September 19, 2019. Portable chest now markedly underinflated limiting exam. New left perihilar interstitial alveolar opacities and small left effusion. Remaining chest including borderline cardiomegaly unchanged.
--- NOTE | 2019-09-26 13:45 | PCM.NOTE ---
Date and Time: 09/26/19 1333 Subjective Assessment: 59 yr old male seen and examined this am. Patient reports that he is doing well. He reports that he has felt SOB. He reports non productive cough. Patient does have some left lower extremity pain. He had no other concerns this am. - Review of Systems Constitutional: No Fever, No Chills Eyes: Other (Patient has amblyopia) Ears, Nose, & Throat: No Symptoms Respiratory: Cough, Short Of Breath, Wheezing Cardiac: Edema, No Chest Pain Abdominal/Gastrointestinal: No Abdominal Pain, No Nausea, No Vomiting, No Diarrhea, No Constipation Musculoskeletal: Other (L lower leg pain and swelling) Skin: Cellulitis Neurological: No Headache, No Parasthesia Objective Exam General Appearance: no apparent distress Neurologic Exam: alert, cooperative, normal mood/affect Skin Exam: warm, dry, other (Left lower extremity with erythema) Wound Assessment: Skin/Wound Assessment Wound/Incision Assessment Start: 09/22/19 00:00 Text: Status: Active Freq: Q6H Protocol: Document 09/26/19 07:38 CINDY (Rec: 09/26/19 07:41 [id number]) Wound/Incision Assessment Left Calf Wound Assessment Shift Assessment Wound Type cellulitis Wound Stage Non Pressure Wound Drainage Odor None/Absent General Appearance Open to air,Reddened Surrounding Tissue [place] Comment barrier cream applied Left Thigh Wound Assessment Shift Assessment Wound Type CELLULITIS Wound Stage Non Pressure Wound Drainage Amount None Drainage Odor None/Absent General Appearance Open to air,Reddened Comment barrier cream applied, redness improving Wound Photo Photo Taken No Eye Exam: other (amblyopia) Ears, Nose, Throat Exam: moist mucous membranes Neck Exam: normal inspection Respiratory Exam: other (Patient was using accesory muscles to breath. He had oxygen on 2l [place].) Cardiovascular Exam: regular rate/rhythm, normal heart sounds, No murmur Gastrointestinal/Abdomen Exam: soft, normal bowel sounds, No tenderness, No distention Extremity Exam: swelling, tenderness, other (Left lower extremity pain and tenderness) OBJECTIVE DATA Vital Signs: Vital Signs - 24 hr Temp Pulse Resp BP Pulse Ox 09/26/19 12:19 98.1 F 99 H 25 H 120/68 96 09/26/19 12:00 98.1 F 94 H 25 H 112/56 96 09/26/19 10:55 94 L 09/26/19 07:32 102 H 20 95 06/22/20 07:30 98.0 F 102 H 18 115/74 95 09/26/19 04:00 99.1 F 105 H 24 120/62 97 09/26/19 00:15 85 L 09/26/19 00:00 98.9 F 111 H 28 H 120/62 91 L 09/25/19 20:00 98.7 F 120 H 32 H 131/59 93 L 09/25/19 17:13 106 H 16 94 L 09/25/19 16:00 98.5 F 104 H 20 109/58 95 Pain Assessment - Last Documented Pain Intensity 0 Pain Scale Used 0-10 Pain Scale Intake and Output: Intake & Output 09/24/19 09/25/19 09/26/19 09/27/19 11:59 11:59 11:59 11:59 Intake Total 4118 3641 3043 Output Total 3300 1275 4075 Balance 818 2366 -1032 Weight 94.5 kg 94.2 kg 94.1 kg Lab Results: Lab Results-Last 24 Hours 09/26/19 09/26/19 Range/Units 04:45 04:45 WBC 7.6 (4.0-10.5) K/mm3 RBC 3.27 L (4.1-5.6) M/mm3 Hgb 10.0 L (12.5-18.0) gm/dl Hct 30.9 L (42-50) % MCV 94.5 (78-100) fl MCH 30.6 (26-32) pg MCHC 32.4 (32-36) g/dl RDW 14.7 H (11.5-14.0) % Plt Count 177 (150-450) K/mm3 MPV 10.5 (7.5-11.0) fl Segmented Neutrophils 73 H (36.-66.) % Band Neutrophils 2 (0.0-2.0) % Lymphocytes (Manual) 19 L (24-44) % Monocytes (Manual) 4 (0.0-12.0) % Eosinophils (Manual) 2 (0.00-3.0) % Toxic Granulation RARE Platelet Estimate NORMAL (NORMAL) RBC Morphology NORMAL Sodium 134 L (137-145) mmol/L Potassium 4.1 (3.5-5.1) mmol/L Chloride 102 (98-107) mmol/L Carbon Dioxide 24 (22-30) mmol/L Anion Gap 12.7 (5-15) MEQ/L BUN 13 (9-20) mg/dL Creatinine 0.39 L (0.66-1.25) mg/dL Estimated GFR > 60.0 ML/MIN Glucose 102 (74-106) mg/dL Calcium 8.3 L (8.4-10.2) mg/dL Magnesium 1.8 (1.6-2.3) mg/dL Radiology Exams: Radiology Procedures Category Date Time Status Portable Chest [CHEST 1 VIEW (PORTABLE)] Routine Exams 09/26/19 08:57 Completed Multi-Disciplinary Progress Notes: Multi-Disciplinary Progress Notes 09/26/19 11:32 Nutrition Note by Luzma Barahona F/u Note: Note pt receiving house regular diet. MBS study complete with ST recommendation of [facility] soft diet with thin liquids. Put order in. Labs 09/25= Na 134, Cr 0.39, hgb 10.0, hct 30.9. weight 93.2 kg on admission; current 94.1 kg. Will con't to monitor and f/u prn. T.HEMALATHA Barahona Initialized on 09/26/19 11:32 - END OF NOTE 09/26/19 10:36 Case Management Note by Jessenia Miranda NO CHANGE IN DC PLANS AT THIS TIME. PATIENT HAS 24 HR CAREGIVERS. PATIENT MAY NEED SET UP FOR HOME OXYGEN AT PATIENT QUALIFIED FOR HOME OXYGEN LAST PM. DETAILED ORDER PLACED ON CHART FOR PHYSICIAN TO SIGN Initialized on 09/26/19 10:36 - END OF NOTE 09/26/19 10:14 Case Management Note by Jessenia Miranda AT [facility] HOME UPDATED AT THIS TIME PER HER REQUEST Initialized on 09/26/19 10:14 - END OF NOTE 09/26/19 00:17 Respiratory Note by Aaron Reese PT MANAGER STAFFING WAS ALARMING, PT WAS AWAKE AND SATS WERE 85% ON RA. PT STATED HE WAS NOT IN ANY DISTRESS. I PLACED PT BACK ON 2LPM AND SATS DANI TO 93%. INFORMED NURSING. Initialized on 09/26/19 00:17 - END OF NOTE Assessment/Plan (1) Cellulitis of left buttock Current Visit: Yes Status: Acute Assessment & Plan: Patient appears to have improved since hospital admission. Patient did not report L hip pain today. His white count has trended down. He is on day 4 of antibiotics for cellulitis. Code(s): L03.317 - CELLULITIS OF BUTTOCK (2) Hyponatremia Current Visit: Yes Status: Acute Assessment & Plan: Patient's sodium level was 124 on admission and has trended up to 134. Unsure the cause of the hyponatremia but it could have been the trigger for his seizure activity. Will recommend repeat BMP outpatient and see if patient's medications or even his traumatic head injury is the cause and treat if necessary. Code(s): E87.1 - HYPO-OSMOLALITY AND HYPONATREMIA (3) Seizure disorder Current Visit: Yes Status: Chronic Assessment & Plan: Patient does have hx of seizure disorder. He was having seizure activity the day he was brought to ER. He also was found to have hyponatremia at the time. Patient has continued his routine home medications. No other seizure activity reported during this hospital stay. Code(s): G40.909 - EPILEPSY, UNSP, NOT INTRACTABLE, WITHOUT STATUS EPILEPTICUS (4) Pneumonia Current Visit: Yes Status: Suspected Qualifiers: Pneumonia type: aspiration pneumonia Aspiration pneumonia type: unspecified Laterality: right Lung location: upper lobe of lung Qualified Code(s): J69.0 - Pneumonitis due to inhalation of food and vomit Assessment & Plan: Patient was initially evaluated for possible aspiration pneumonia. He had a swallow eval. Repeat chest xray today shows a new left sided infiltrate. Will have to consider adjusting antibiotics as patient has developed this new infiltrate while on current antibiotics. Would also like patient doing incentive spirometry and will have to consider breathing tx and steroids. Code(s): J18.9 - PNEUMONIA, UNSPECIFIED ORGANISM (5) Left hemiparesis Current Visit: No Status: Chronic Assessment & Plan: Patient has a hx of left sided hemiparesis. Code(s): G81.94 - HEMIPLEGIA, UNSPECIFIED AFFECTING LEFT NONDOMINANT SIDE
[2019-09-26] MEDS ORDERED: Sodium Chloride 0.9% 10 ML FLUSH Syringe IV PRN (16:45)
[2019-09-26] MEDS ORDERED: DUONEB 0.5-3 MG/3 ml Neb IH PRN (19:14)
[2019-09-26] MEDS: solu-MEDROL 125 MG IV SCH (20:04)
[2019-09-26] MEDS: Metamucil PACKET PO SCH (22:49)
[2019-09-26] MEDS: Sodium Chloride 0.9% 10 ML FLUSH Syringe IV SCH (22:52)
[2019-09-27] MEDS: Sodium Chloride 0.9% 10 ML FLUSH Syringe IV SCH ×2 (05:30→16:57)
[2019-09-27 06:40] LABS: Absolute Neutrophil Ct (ANC) 7.48 (1.4-6.9); BASOPHIL % 0.2 % (0.0-0.4); Basophil (Absolute #) 0.02 (0-0.4); Eosinophil (Absolute #) 0 (0-0.5); Hematocrit 31.9 % (42-50); Hemoglobin 10.6 gm/dl (12.5-18.0); Lymphocyte (Absolute #) 0.66 (1.0-4.6); Lymphocytes % 7.9 % (24.0-44.0); Mean Cell Volume 93.3 fl (78-100); Mean Corpuscular Hgb Concent. 33.2 g/dl (32-36); Mean Platelet Volume 8.9 fl (7.5-11.0); Monocyte (Absolute #) 0.17 (0.0-1.3); Neutrophil % 89.9 % (36.0-66.0); Platelet Count 323 K/mm3 (150-450); Red Blood Count 3.42 M/mm3 (4.1-5.6); Red Cell Distribution Width 14.4 % (11.5-14.0); White Blood Count 8.3 K/mm3 (4.0-10.5)
[2019-09-27 06:59] LABS: ALBUMIN 3.2 g/dL (3.5-5.0); ALKALINE PHOSPHATASE 100 U/L (38-126); ANION GAP 10.1 MEQ/L (5-15); BLOOD UREA NITROGEN 15 mg/dL (9-20); CHLORIDE 99 mmol/L (98-107); Calcium 8.7 mg/dL (8.4-10.2); Carbon Dioxide 27 mmol/L (22-30); Creatinine 1 0.41 mg/dL (0.66-1.25); Glucose 127 mg/dL (74-106); Potassium 4.6 mmol/L (3.5-5.1); SGOT/AST 62 U/L (17-59); SGPT/ALT 100 U/L (0-50); SODIUM 131 mmol/L (137-145); Total Protein 6.1 g/dL (6.3-8.2)
[2019-09-27] MEDS: VENTOLIN COMMON CANISTER IH SCH ×2 (07:37→19:16)
[2019-09-27] MEDS: solu-MEDROL 125 MG IV SCH ×3 (07:51→16:57)
[2019-09-27] MEDS: CLARITIN 10 MG PO SCH (09:05)
[2019-09-27] MEDS: LIORESAL 10 MG PO SCH ×2 (09:05→21:22)
[2019-09-27] MEDS: Acidophilus TABLET PO SCH (09:05)
[2019-09-27] MEDS: Zestril 20 MG PO SCH ×2 (09:06→21:22)
[2019-09-27] MEDS: ENOXAPARIN SODIUM SQ SCH (09:06)
[2019-09-27] MEDS: Bactroban OINTMENT TP SCH ×2 (09:06→21:55)
[2019-09-27] MEDS: PATIENT OWN MEDICATION PO SCH ×8 (09:06→21:23)
[2019-09-27] MEDS: VANCOMYCIN 2 GRAM/400 ML BAG 2 GM/400 ML PIGGYBACK IV SCH (09:08)
[2019-09-27] MEDS: Zithromax 500 MG/ 250 ML NaCl Premix 500 MG/250 ML IVPB IV SCH (09:08)
[2019-09-27] MEDS ORDERED: PHARMACY DOSING REQUEST MC ONE (10:56)
[2019-09-27] MEDS: ZYVOX PO SCH ×2 (11:12→21:22)
[2019-09-27] MEDS: Zithromax 250 MG TABLET PO SCH (11:12)
[2019-09-27] MEDS: Metamucil PACKET PO SCH (21:23)
[2019-09-28] MEDS: VENTOLIN COMMON CANISTER IH SCH ×2 (08:21→22:27)
[2019-09-28 10:04] LABS: Hematocrit 36.5 % (42-50); Mean Cell Volume 94.6 fl (78-100); Mean Corpuscular Hemoglobin 31.1 pg (26-32); Mean Corpuscular Hgb Concent. 32.9 g/dl (32-36); Mean Platelet Volume 9.5 fl (7.5-11.0); Platelet Count 363 K/mm3 (150-450); Red Blood Count 3.86 M/mm3 (4.1-5.6); Red Cell Distribution Width 14.9 % (11.5-14.0)
[2019-09-28] MEDS: PATIENT OWN MEDICATION PO SCH ×8 (10:16→21:49)
[2019-09-28] MEDS: Bactroban OINTMENT TP SCH ×2 (10:16→22:18)
[2019-09-28] MEDS: LIORESAL 10 MG PO SCH ×2 (10:16→21:43)
[2019-09-28] MEDS: Acidophilus TABLET PO SCH (10:16)
[2019-09-28] MEDS: ENOXAPARIN SODIUM SQ SCH (10:16)
[2019-09-28] MEDS: CLARITIN 10 MG PO SCH (10:16)
[2019-09-28] MEDS: Zestril 20 MG PO SCH ×2 (10:17→21:43)
[2019-09-28] MEDS: ZYVOX PO SCH ×2 (10:17→21:43)
[2019-09-28] MEDS: Zithromax 250 MG TABLET PO SCH (10:18)
[2019-09-28 10:34] LABS: ALBUMIN 3.6 g/dL (3.5-5.0); ALKALINE PHOSPHATASE 110 U/L (38-126); ANION GAP 13.5 MEQ/L (5-15); BLOOD UREA NITROGEN 21 mg/dL (9-20); CHLORIDE 100 mmol/L (98-107); Calcium 8.9 mg/dL (8.4-10.2); Carbon Dioxide 28 mmol/L (22-30); Creatinine 1 0.53 mg/dL (0.66-1.25); Glucose 116 mg/dL (74-106); SGOT/AST 80 U/L (17-59); SGPT/ALT 118 U/L (0-50); SODIUM 137 mmol/L (137-145); Total Protein 6.8 g/dL (6.3-8.2)
[2019-09-28 15:21] LABS: BAND 2 % (0.0-2.0); Eosinophil 2 % (0.00-3.0); Lymphocytes 11 % (24-44); Monocyte 8 % (0.0-12.0); Neutrophils 77 % (36.-66.); Platelet Estimate NORMAL (NORMAL); Total Cells Counted 100
--- NOTE | 2019-09-28 16:12 | PCM.NOTE ---
Date and Time: 09/28/19 1607 Subjective Assessment: 59 yr old male seen and examined today. Patient is doing well. Discussed with patient's brother about going home potentially today. Patient's cellulitis of his left lower extremity has improved and patient has been breathing better. Patient has a good appetite. He wears cpap routinely at night and during naps as well. Patient also has known elevated heart rate. - Review of Systems Constitutional: No Fever Eyes: No Symptoms Ears, Nose, & Throat: No Symptoms Respiratory: Wheezing Cardiac: Edema, No Chest Pain Abdominal/Gastrointestinal: No Abdominal Pain, No Nausea, No Vomiting, No Diarrhea, No Constipation Genitourinary Symptoms: No Symptoms Musculoskeletal: Other (Left lower extremity cellulitis and edema) Skin: Cellulitis Neurological: Seizure, Other (Hx of TBI), No Headache Psychological: No Symptoms Objective Exam General Appearance: no apparent distress Neurologic Exam: alert, cooperative, normal mood/affect Skin Exam: normal color, warm, dry, other (Left lower extremity with mild erythema and mild edema. Improved from yesterday) Wound Assessment: Skin/Wound Assessment Wound/Incision Assessment Start: 09/22/19 00:00 Text: Status: Active Freq: Q6H Protocol: Document 09/28/19 14:00 CANDIDA (Rec: 09/28/19 14:38 CANDIDA [id number]) Wound/Incision Assessment Left Calf Wound Assessment Shift Assessment Wound Type cellulitis Wound Stage Non Pressure Wound Drainage Odor None/Absent General Appearance Open to air,Reddened Surrounding Tissue [place] Comment barrier cream applied, redness improving Left Thigh Wound Assessment Shift Assessment Wound Type CELLULITIS Wound Stage Non Pressure Wound Drainage Amount None Drainage Odor None/Absent General Appearance Open to air,Reddened Comment barrier cream applied, redness improving Wound Photo Photo Taken No Eye Exam: other (ambylopia) Ears, Nose, Throat Exam: moist mucous membranes Neck Exam: normal inspection Respiratory Exam: wheezing (mild intermittent wheeze bilaterally), No normal breath sounds Cardiovascular Exam: regular rate/rhythm, normal heart sounds, No murmur, No friction rub, No gallop Gastrointestinal/Abdomen Exam: soft, normal bowel sounds, No tenderness, No distention Extremity Exam: other (left lower extremity edema and erythema) Back Exam: other (limited visualization of back. Patient has hunched back) OBJECTIVE DATA Vital Signs: Vital Signs - 24 hr Temp Pulse Resp BP Pulse Ox 09/28/19 12:00 99.2 F 119 H 18 115/61 94 L 09/28/19 08:23 99 H 18 96 09/28/19 08:00 97.2 F 91 H 12 117/61 97 09/28/19 04:00 97.2 F 92 H 23 86/48 90 L 09/27/19 23:45 99.3 F 107 H 17 107/57 94 L 09/27/19 20:04 121 H 18 91 L 09/27/19 20:00 98.6 F 120 H 20 124/68 93 L Pain Assessment - Last Documented Pain Intensity 0 Pain Scale Used [facility] Intake and Output: Intake & Output 09/26/19 09/27/19 09/28/19 09/29/19 11:59 11:59 11:59 11:59 Intake Total 3045 9805 240 Output Total 4074 3027 1600 Balance -3835 -0892 -9916 Weight 94.1 kg 96.1 kg 102.4 kg Lab Results: Lab Results-Last 24 Hours 09/28/19 09/28/19 09/28/19 Range/Units 09:25 09:25 09:52 WBC 6.0 (4.0-10.5) K/mm3 RBC 3.86 L (4.1-5.6) M/mm3 Hgb 12.0 L (12.5-18.0) gm/dl Hct 36.5 L (42-50) % MCV 94.6 (78-100) fl MCH 31.1 (26-32) pg MCHC 32.9 (32-36) g/dl RDW 14.9 H (11.5-14.0) % Plt Count 363 (150-450) K/mm3 MPV 9.5 (7.5-11.0) fl Segmented Neutrophils 77 H (36.-66.) % Band Neutrophils 2 (0.0-2.0) % Lymphocytes (Manual) 11 L (24-44) % Monocytes (Manual) 8 (0.0-12.0) % Eosinophils (Manual) 2 (0.00-3.0) % Platelet Estimate NORMAL (NORMAL) RBC Morphology NORMAL Sodium 137 (137-145) mmol/L Potassium 4.0 (3.5-5.1) mmol/L Chloride 100 (98-107) mmol/L Carbon Dioxide 28 (22-30) mmol/L Anion Gap 13.5 (5-15) MEQ/L BUN 21 H (9-20) mg/dL Creatinine 0.53 L (0.66-1.25) mg/dL Estimated GFR > 60.0 ML/MIN Glucose 116 H (74-106) mg/dL Calcium 8.9 (8.4-10.2) mg/dL Total Bilirubin 0.40 (0.2-1.3) mg/dL AST 80 H (17-59) U/L ALT 118 H (0-50) U/L Alkaline Phosphatase 110 (38-126) U/L Serum Total Protein 6.8 (6.3-8.2) g/dL Albumin 3.6 (3.5-5.0) g/dL Urine Sodium 66 (30-90) mmol/L Multi-Disciplinary Progress Notes: Multi-Disciplinary Progress Notes 09/28/19 10:27 Case Management Note by Jessenia Miranda NO CHANGE IN DC PLANS AT THIS TIME. PATIENT HAS 24 HR CAREGIVERS. PATIENTS OXYGEN LEVELS WERE GOOD ON CPAP LAST PM. PATIENT HAS THIS AT HOME. Initialized on 09/28/19 10:27 - END OF NOTE 09/27/19 17:28 Pharmacy Note by Benedict Wolf Changed Vancomycin to Zyvox 600mg po bid. No cultures to guide antibiotic choice. Failed on Cleocin. Initialized on 09/27/19 17:28 - END OF NOTE 09/27/19 17:24 Pharmacy Note by Benedict Wolf Today is day 6 of Zithromax therapy. Initialized on 09/27/19 17:24 - END OF NOTE Assessment/Plan (1) Cellulitis of left buttock Current Visit: Yes Status: Acute Assessment & Plan: Resovled. Patient has limited mobility so developed some erythema over left hip buttock area which quickly responded to antibiotics. Code(s): L03.317 - CELLULITIS OF BUTTOCK (2) Hyponatremia Current Visit: Yes Status: Acute Assessment & Plan: Patient's sodium improved today. Serum sodium studies ordered. Will follow up. Patient does take aptiom which can lead to SIADH. Unsure if patient's TBI contributes to low sodium and discussed with brother who has started adding salt to patient's diet to help increase his sodium level. Code(s): E87.1 - HYPO-OSMOLALITY AND HYPONATREMIA (3) Seizure disorder Current Visit: Yes Status: Chronic Assessment & Plan: Patient will continue with routine home meds Code(s): G40.909 - EPILEPSY, UNSP, NOT INTRACTABLE, WITHOUT STATUS EPILEPTICUS (4) Pneumonia Current Visit: Yes Status: Suspected Qualifiers: Pneumonia type: aspiration pneumonia Aspiration pneumonia type: unspecified Laterality: right Lung location: upper lobe of lung Qualified Code(s): J69.0 - Pneumonitis due to inhalation of food and vomit Assessment & Plan: Patient has a component of aspiration pneumonia and had a left sided area of atelectasis that developed as well. He has been on antibiotics for aspiration pneumonia. He had swallow study as well and the patient's guardian has ordered some swallow assisting devices to help avoid aspiration. Code(s): J18.9 - PNEUMONIA, UNSPECIFIED ORGANISM (5) Left hemiparesis Current Visit: No Status: Chronic Assessment & Plan: Patient requires assistance with movement. He will continue with this at home as well to avoid skin breakdown. Code(s): G81.94 - HEMIPLEGIA, UNSPECIFIED AFFECTING LEFT NONDOMINANT SIDE (6) CLAUDINE (obstructive sleep apnea) Current Visit: Yes Status: Acute Assessment & Plan: Patient has had desaturation episodes overnight. He now has his cpap machine and his oxygen saturations have been more stable. Will continue to monitor. Patient will actually get oxygen study overnight this evening. Code(s): G47.33 - OBSTRUCTIVE SLEEP APNEA (ADULT) (PEDIATRIC) (7) Tachycardia Current Visit: Yes Status: Acute Assessment & Plan: Patient has had intermittent tachycardia. Unsure if related to his CLAUDINE and not having cpap upon admission. Will have cardiology evaluate patient. Code(s): R00.0 - TACHYCARDIA, UNSPECIFIED
--- NOTE | 2019-09-28 16:31 | PCM.NOTE ---
Date and Time: 09/28/19 1630 Objective Exam Wound Assessment: Skin/Wound Assessment Wound/Incision Assessment Start: 09/22/19 00:00 Text: Status: Active Freq: Q6H Protocol: Document 09/28/19 14:00 CANDIDA (Rec: 09/28/19 14:38 CANDIDA [id number]) Wound/Incision Assessment Left Calf Wound Assessment Shift Assessment Wound Type cellulitis Wound Stage Non Pressure Wound Drainage Odor None/Absent General Appearance Open to air,Reddened Surrounding Tissue [place] Comment barrier cream applied, redness improving Left Thigh Wound Assessment Shift Assessment Wound Type CELLULITIS Wound Stage Non Pressure Wound Drainage Amount None Drainage Odor None/Absent General Appearance Open to air,Reddened Comment barrier cream applied, redness improving Wound Photo Photo Taken No OBJECTIVE DATA Vital Signs: Vital Signs - 24 hr Temp Pulse Resp BP Pulse Ox 09/28/19 12:00 99.2 F 119 H 18 115/61 94 L 09/28/19 08:23 99 H 18 96 09/28/19 08:00 97.2 F 91 H 12 117/61 97 09/28/19 04:00 97.2 F 92 H 23 86/48 90 L 09/27/19 23:45 99.3 F 107 H 17 107/57 94 L 09/27/19 20:04 121 H 18 91 L 09/27/19 20:00 98.6 F 120 H 20 124/68 93 L Pain Assessment - Last Documented Pain Intensity 0 Pain Scale Used FLACC Intake and Output: Intake & Output 09/26/19 09/27/19 09/28/19 09/29/19 11:59 11:59 11:59 11:59 Intake Total 3400 5535 240 Output Total 1013 0925 1600 Balance -0003 -8021 -1296 Weight 94.1 kg 96.1 kg 102.4 kg Lab Results: Lab Results-Last 24 Hours 09/28/19 09/28/19 09/28/19 Range/Units 09:25 09:25 09:52 WBC 6.0 (4.0-10.5) K/mm3 RBC 3.86 L (4.1-5.6) M/mm3 Hgb 12.0 L (12.5-18.0) gm/dl Hct 36.5 L (42-50) % MCV 94.6 (78-100) fl MCH 31.1 (26-32) pg MCHC 32.9 (32-36) g/dl RDW 14.9 H (11.5-14.0) % Plt Count 363 (150-450) K/mm3 MPV 9.5 (7.5-11.0) fl Segmented Neutrophils 77 H (36.-66.) % Band Neutrophils 2 (0.0-2.0) % Lymphocytes (Manual) 11 L (24-44) % Monocytes (Manual) 8 (0.0-12.0) % Eosinophils (Manual) 2 (0.00-3.0) % Platelet Estimate NORMAL (NORMAL) RBC Morphology NORMAL Sodium 137 (137-145) mmol/L Potassium 4.0 (3.5-5.1) mmol/L Chloride 100 (98-107) mmol/L Carbon Dioxide 28 (22-30) mmol/L Anion Gap 13.5 (5-15) MEQ/L BUN 21 H (9-20) mg/dL Creatinine 0.53 L (0.66-1.25) mg/dL Estimated GFR > 60.0 ML/MIN Glucose 116 H (74-106) mg/dL Calcium 8.9 (8.4-10.2) mg/dL Total Bilirubin 0.40 (0.2-1.3) mg/dL AST 80 H (17-59) U/L ALT 118 H (0-50) U/L Alkaline Phosphatase 110 (38-126) U/L Serum Total Protein 6.8 (6.3-8.2) g/dL Albumin 3.6 (3.5-5.0) g/dL Urine Sodium 66 (30-90) mmol/L Multi-Disciplinary Progress Notes: Multi-Disciplinary Progress Notes 09/28/19 10:27 Case Management Note by Jessenia Miranda NO CHANGE IN DC PLANS AT THIS TIME. PATIENT HAS 24 HR CAREGIVERS. PATIENTS OXYGEN LEVELS WERE GOOD ON CPAP LAST PM. PATIENT HAS THIS AT HOME. Initialized on 09/28/19 10:27 - END OF NOTE 09/27/19 17:28 Pharmacy Note by Benedict Wolf Changed Vancomycin to Zyvox 600mg po bid. No cultures to guide antibiotic choice. Failed on Cleocin. Initialized on 09/27/19 17:28 - END OF NOTE 06/23/20 17:24 Pharmacy Note by Benedict oWlf Today is day 6 of Zithromax therapy. Initialized on 09/27/19 17:24 - END OF NOTE Assessment/Plan (1) Cellulitis of left buttock Current Visit: Yes Status: Acute Code(s): L03.317 - CELLULITIS OF BUTTOCK (2) Hyponatremia Current Visit: Yes Status: Acute Code(s): E87.1 - HYPO-OSMOLALITY AND HYPONATREMIA (3) Seizure disorder Current Visit: Yes Status: Chronic Code(s): G40.909 - EPILEPSY, UNSP, NOT INTRACTABLE, WITHOUT STATUS EPILEPTICUS (4) Pneumonia Current Visit: Yes Status: Suspected Qualifiers: Pneumonia type: aspiration pneumonia Aspiration pneumonia type: unspecified Laterality: right Lung location: upper lobe of lung Qualified Code(s): J69.0 - Pneumonitis due to inhalation of food and vomit Code(s): J18.9 - PNEUMONIA, UNSPECIFIED ORGANISM (5) Left hemiparesis Current Visit: No Status: Chronic Code(s): G81.94 - HEMIPLEGIA, UNSPECIFIED AFFECTING LEFT NONDOMINANT SIDE (6) CLAUDINE (obstructive sleep apnea) Current Visit: Yes Status: Acute Code(s): G47.33 - OBSTRUCTIVE SLEEP APNEA (ADULT) (PEDIATRIC) (7) Tachycardia Current Visit: Yes Status: Acute Code(s): R00.0 - TACHYCARDIA, UNSPECIFIED
[2019-09-28] MEDS: Metamucil PACKET PO SCH (21:42)
[2019-09-29] MEDS: VENTOLIN COMMON CANISTER IH SCH (06:54)
[2019-09-29] MEDS: ZYVOX PO SCH (09:48)
[2019-09-29] MEDS: ENOXAPARIN SODIUM SQ SCH (09:48)
[2019-09-29] MEDS: LIORESAL 10 MG PO SCH (09:49)
[2019-09-29] MEDS: Acidophilus TABLET PO SCH (09:49)
[2019-09-29] MEDS: Zestril 20 MG PO SCH (09:49)
[2019-09-29] MEDS: Zithromax 250 MG TABLET PO SCH (09:49)
[2019-09-29] MEDS: CLARITIN 10 MG PO SCH (09:50)
[2019-09-29] MEDS: Bactroban OINTMENT TP SCH (09:50)
[2019-09-29] MEDS: PATIENT OWN MEDICATION PO SCH ×4 (10:06→10:07)
[2019-09-29 11:21] VITALS: BP 133/67; PULSE 117; O2SAT 91
[2019-09-29 11:53] LABS: OSMOLALITY SERUM 286 mOsm/kg (282-304)
[2019-09-29] MEDS ORDERED: Lopressor 25MG Tab PO SCH (13:00)
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
[2019-09-29 14:52] LABS: OSMOLALITY URINE 541 mOsm/kg
== END 2019-09-29 16:10 | disposition home or self-care (01) | DRG 602 ==
LOC: ED 17:50 → MED SURG 09-22 00:08 → OBSVTOIN 09-22 10:00
PROVIDERS: ADMIT Family Medicine; ATTEND Family Medicine
DX: L03.317 Cellulitis of buttock (principal); J18.9 Pneumonia, unspecified organism; G81.94 Hemiplegia, unspecified affecting left nondominant side; E87.1 Hypo-osmolality and hyponatremia; G40.909 Epilepsy, unspecified, not intractable, without status epilepticus; Z87.820 Personal history of traumatic brain injury; M79.605 Pain in left leg; G47.33 Obstructive sleep apnea (adult) (pediatric); R00.0 Tachycardia, unspecified; I10 Essential (primary) hypertension; Z79.899 Other long term (current) drug therapy
CPT/HCPCS: 36000; 36415; 51702; 71045; 73522; 74230; 80048; 80053; 80202; 81001; 82150; 83036; 83605; 83690; 83735; 83880; 83930; 83935; 84300; 84443; 85025; 86689; 86701; 86702; 86803; 87040; 87086; 87340; 87389; 87631; 87651; 92610; 92611; 93005; 93041; 93306; 94640; 94660; 94760; 94762; 96365; 97161; 99285; U0003; J0456; J1650; J2930; A9270-GY; J3370

== ENCOUNTER 2019-10-07 08:45 | Inpatient (IN) | payer MEDICARE ==
[2019-10-07] MEDS ORDERED: Sodium Chloride 0.9% 1000 ML 1,000 ML IV SCH (09:00)
--- NOTE | 2019-10-07 09:40 | XRAY ---
Indication: Short of breath. Comparison: September 26, 2019. Portable chest demonstrates mild worsening left perihilar interstitial alveolar opacities with stable borderline cardiomegaly. Remaining heart and lungs unremarkable.
[2019-10-07] MEDS ORDERED: Sodium Chloride 0.9% 1000 ML 1,000 ML ONE (09:45)
[2019-10-07 10:12] LABS: BASOPHIL % 0.1 % (0.0-0.4); Basophil (Absolute #) 0.01 (0-0.4); Eosinophil % 0.5 % (0.00-5.0); Eosinophil (Absolute #) 0.04 (0-0.5); Hematocrit 37.2 % (42-50); Hemoglobin 12.4 gm/dl (12.5-18.0); Lymphocyte (Absolute #) 0.24 (1.0-4.6); Mean Cell Volume 94.2 fl (78-100); Mean Corpuscular Hemoglobin 31.4 pg (26-32); Mean Corpuscular Hgb Concent. 33.3 g/dl (32-36); Mean Platelet Volume 9.2 fl (7.5-11.0); Monocyte (Absolute #) 0.68 (0.0-1.3); Monocytes % 8.4 % (0.0-12.0); Platelet Count 332 K/mm3 (150-450); Red Blood Count 3.95 M/mm3 (4.1-5.6); White Blood Count 8.1 K/mm3 (4.0-10.5)
[2019-10-07 10:18] LABS: INR 1.14 (0.8-3.0); PROTIME 12.9 SECONDS (8.83-12.87)
[2019-10-07 10:25] LABS: ALBUMIN 3.9 g/dL (3.5-5.0); ANION GAP 14.1 MEQ/L (5-15); BILIRUBIN,TOTAL 0.7 mg/dL (0.2-1.3); Creatinine 1 1.31 mg/dL (0.66-1.25); Potassium 4.7 mmol/L (3.5-5.1)
[2019-10-07 10:41] LABS: INFLUENZA A NEGATIVE (NEGATIVE); INFLUENZA B NEGATIVE (NEGATIVE); RESPIRATORY SYNCTIAL VIRUS NEGATIVE (Negative)
[2019-10-07 11:21] LABS: Appearance CLOUDY (CLEAR); Bacteria FEW /HPF (NEGATIVE); Bilirubin NEGATIVE (NEGATIVE); Blood NEGATIVE Ery/ul (0-5); Glucose 50 mg/dL (NEGATIVE); Ketones TRACE (NEGATIVE); Leukocyte Esterase NEGATIVE (NEGATIVE); Mucus MODERATE /HPF (NEGATIVE); Nitrite NEGATIVE (NEGATIVE); Protein,Urine Dip 30 (Negative); Specific Gravity 1.016 (1.005-1.025); Urobilinogen NEGATIVE mg/dL (0-1)
[2019-10-07] MEDS ORDERED: ROCEPHIN 1 Gm-D5w 50 ml Bag** 1 G/50 ML IVPB IV STA ×2 (11:48→11:55)
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
[2019-10-07] MEDS ORDERED: ROCEPHIN 1 Gm-D5w 50 ml Bag** 1 G/50 ML IVPB IV ONE (11:50)
[2019-10-07 14:51] LABS: Hematocrit 36.9 % (42-50); Mean Cell Volume 97.6 fl (78-100); Mean Corpuscular Hemoglobin 31.7 pg (26-32); Mean Corpuscular Hgb Concent. 32.5 g/dl (32-36); Mean Platelet Volume 9.3 fl (7.5-11.0); Platelet Count 310 K/mm3 (150-450); Red Blood Count 3.78 M/mm3 (4.1-5.6); Red Cell Distribution Width 15.8 % (11.5-14.0); White Blood Count 10.6 K/mm3 (4.0-10.5)
[2019-10-07 15:09] LABS: BLOOD UREA NITROGEN 27 mg/dL (9-20); CHLORIDE 98 mmol/L (98-107); Calcium 8.6 mg/dL (8.4-10.2); Carbon Dioxide 22 mmol/L (22-30); Creatinine 1 0.91 mg/dL (0.66-1.25); Glucose 117 mg/dL (74-106); PREALBUMIN 25.27 mg/dL (17.6-36.0); Potassium 4.4 mmol/L (3.5-5.1); SODIUM 129 mmol/L (137-145)
[2019-10-07 17:19] VITALS: BP 109/55; PULSE 106
[2019-10-07 17:21] VITALS: O2SAT 98
--- NOTE | 2019-10-08 07:35 | XRAY ---
Indication: NG tube placement. Comparison: Taken earlier in the day. Portable chest demonstrates new NG tube traversing chest with distal tube in the left upper quadrant abdomen presumed in the stomach. Worsening left lung interstitial alveolar opacities appearing more consolidative with new right base infiltrate/atelectasis. Heart is not enlarged.
[2019-10-08] MEDS ORDERED: ROCEPHIN 1 Gm-D5w 50 ml Bag** 1 G/50 ML IVPB IV SCH (10:00)
== END 2019-10-07 18:25 | disposition short-term general hospital (02) | DRG 177 ==
LOC: ED 08:45 → MED SURG 13:09
PROVIDERS: ADMIT Family Medicine; ATTEND Family Medicine
DX: J69.0 Pneumonitis due to inhalation of food and vomit (principal); G82.50 Quadriplegia, unspecified; G81.94 Hemiplegia, unspecified affecting left nondominant side; R09.02 Hypoxemia; I10 Essential (primary) hypertension; Z79.899 Other long term (current) drug therapy; Z87.820 Personal history of traumatic brain injury
CPT/HCPCS: 36000; 36415; 71045; 80048; 80053; 81001; 83605; 84134; 85025; 85027; 85610; 87040; 87086; 87631; 93005; 93041; 94762; 96360; 96365; 99285; J0696

== ENCOUNTER 2020-12-26 11:28 | Inpatient (IN) | payer MEDICARE ==
[2020-12-26] MEDS ORDERED: VASOTEC I.V. 2.5 MG IV ONE (11:51)
[2020-12-26] MEDS ORDERED: LOPRESSOR 5 MG/5 ML INJECTION IV ONE ×2 (11:51→12:46)
--- NOTE | 2020-12-26 11:51 | ERPHSYRPT ---
- History of Present Illness Time Seen by Provider: 12/26/20 11:51 Source: patient Exam Limitations: no limitations Physician History: This is a 60-year-old white male patient of Dr. Baldwin he has a history of hypertension and is on metoprolol. 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 Patient is a poor historian and cannot provide information that would help us in his examination. Caregivers have monitored his blood pressure and heart rate and have kept a log. Patient's systolic blood pressure typically runs in the 130s. Patient heart rate typ ically runs in the 90s. Patient was found to have an elevated systolic blood pressure in the 200 range. Per caregiver, patient seems to be a little short of breath. Timing/Duration: today Severity: mild Associated Symptoms: denies symptoms (Although he is a poor historian) Allergies/Adverse Reactions: adhesive tape Allergy (Verified 12/26/20 11:55) Home Medications: Multivitamin [Multivitamins] 1 each PO DAILY 06/16/14 [History] Albuterol Sulfate [Proair Hfa] 2 inh IH BIDPRN PRN 06/03/16 [History] Loratadine 10 mg [Claritin 10 mg] 10 mg PO DAILY 06/03/16 [History] Brivaracetam [Briviact] 100 mg PO BID 05/30/18 [History] Lacosamide [Vimpat] 200 mg PO BID 10/06/18 [History] Baclofen 40 mg PO BID 09/21/19 [History] Alendronate Sodium 70 mg [Fosamax 70 MG] 70 mg PO Q7D@0600 09/22/19 [History] Eslicarbazepine Acetate [Aptiom] 1,000 mg PO BID 10/07/19 [History] Metoprolol Tartrate 12.5 mg PO BID 10/07/19 [History] Eslicarbazepine Acetate [Aptiom] 200 mg PO BID 12/26/20 [History] Eslicarbazepine Acetate [Aptiom] 800 mg PO BID 12/26/20 [History] Fluticasone Propionate [Flonase NASAL] 2 sprays NS DAILY 12/26/20 [History] Losartan Potassium 50 mg [Cozaar 50 MG] 50 mg PO QAM 12/26/20 [History] Polyethylene Glycol 3350 17 gm [Miralax Powder 17GM PACKET] 17 gm PO DAILY 12/26/20 [History] Hx Tetanus, Diphtheria Vaccination/Date Given: No Hx Influenza Vaccination/Date Given: No Hx Pneumococcal Vaccination/Date Given: No Travel Risk - International Travel Have you traveled outside of the country in past 3 weeks: No - Coronavirus Screening Are you exhibiting any of the following symptoms?: No Close contact with a COVID-19 positive Pt in past 14-21 Days: No - Review of Systems Constitutional: No Symptoms Eyes: No Symptoms Ears, Nose, & Throat: No Symptoms Respiratory: Dyspnea Cardiac: Palpitations Abdominal/Gastrointestinal: No Symptoms Genitourinary Symptoms: No Symptoms Musculoskeletal: No Symptoms Skin: No Symptoms Neurological: No Symptoms Psychological: No Symptoms Endocrine: No Symptoms Hematologic/Lymphatic: No Symptoms Immunological/Allergic: No Symptoms All Other Systems: Reviewed and Negative - Past Medical History Pertinent Past Medical History: Yes Neurological History: Seizures ENT History: No Pertinent History Cardiac History: No Pertinent History, Hypertension Respiratory History: No Pertinent History Endocrine Medical History: No Pertinent History Musculoskeletal History: No Pertinent History GI Medical History: No Pertinent History History: No Pertinent History Psycho-Social History: Other Male Reproductive Disorders: No Pertinent History Other Medical History: PT. 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 double hernia repair, multiple reconstruction surgerys to hand and arm/jaw - Social History Smoking Status: Never smoker Exposure to second hand smoke: No Drug Use: none Patient Lives Alone: No - Nursing Vital Signs Nursing Vital Signs: Initial Vital Signs Temperature 98.9 F 12/26/20 11:31 Pulse Rate 124 H 12/26/20 11:31 Respiratory Rate 39 H 12/26/20 11:31 Blood Pressure 148/122 12/26/20 11:31 Pain Scale Pain Intensity 0 - Physical Exam General Appearance: no apparent distress, alert, anxiety Eye Exam: PERRL/EOMI, post op pupil defect (L) Ears, Nose, Throat Exam: normal ENT inspection, moist mucous membranes Neck Exam: normal inspection, other (Chronically hypertonic) Respiratory Exam: normal breath sounds, lungs clear, airway intact, No chest tenderness, No respiratory distress Cardiovascular Exam: tachycardia Gastrointestinal/Abdomen Exam: soft, normal bowel sounds, No tenderness Rectal Exam: not done Back Exam: normal inspection, normal range of motion, No CVA tenderness, No vert ebral tenderness Extremity Exam: other (Hypertonic chronically) Neurologic Exam: other (Unable to adequately assess secondary to traumatic brain injury) Skin Exam: normal color, warm, dry Lymphatic Exam: No adenopathy SpO2 Interpretation: borderline oxygenation O2 Delivery: Room Air - Course Nursing assessment & vital signs reviewed: Yes Ordered Tests: Active Orders 24 hr Category Date Time Status Call Person STAT Care 12/26/20 11:55 Active Cath [Catheter-[place] Velásquez] STAT Care 12/26/20 12:57 Active EKG-ER Only STAT Care 12/26/20 11:55 Active IV Insertion STAT Care 12/26/20 11:51 Active IV Insertion-2nd Peripheral STAT Care 12/26/20 12:57 Active Oxygen-ED Only Nasal Cannula 4 lpm Care 12/26/20 12:56 Active Pulse Oximetry (ED) STAT Care 12/26/20 11:51 Active ABDOMEN AND PELVIS W/0 CONTRAS [CT] Stat Exams 12/26/20 15:03 Completed CHEST 1 VIEW (PORTABLE) Stat Exams 12/26/20 12:08 Completed AMYLASE Stat Lab 12/26/20 12:00 Completed BLOOD CULTURE Stat Lab 12/26/20 12:30 Received CBC W DIFF Stat Lab 12/26/20 11:51 Completed CMP Stat Lab 12/26/20 12:45 Completed INFLUENZA A+B BRUNO Stat Lab 12/26/20 13:17 Completed LIPASE Stat Lab 12/26/20 12:00 Completed Lactic Acid Stat Lab 12/26/20 12:55 Completed Lactic Acid Stat Lab 12/26/20 15:13 Stop Req MAGNESIUM Stat Lab 12/26/20 12:45 Completed [place] Screen Stat Lab 12/26/20 12:45 Completed T4 (Thyroxine) Stat Lab 12/26/20 12:45 Completed TROPONIN Q3H Lab 12/26/20 12:45 Completed TROPONIN Q3H Lab 12/26/20 15:00 Completed TROPONIN Q3H Lab 12/26/20 18:00 Ordered TROPONIN Q3H Lab 12/26/20 21:00 Ordered TROPONIN Q3H Lab 12/27/20 00:00 Ordered TSH, 3RD Generation Stat Lab 12/26/20 12:45 Completed UA W/RFX UR CULTURE Stat Lab 12/26/20 12:56 Completed Transfer Order Routine Transfer 12/26/20 Ordered Medication Summary Generic Name Dose Route Start Last Admin Trade Name Greg PRN Reason Stop Dose Admin Sodium Chloride 1,000 mls @ 100 mls/hr 12/26/20 12:15 12/26/20 12:48 Sodium Chloride 0.9% 1000 Ml IV 01/25/21 12:14 100 mls/hr .Q10H JAH Administration Piperacillin Sod/Tazobactam 100 mls @ 200 mls/hr 12/26/20 16:59 12/26/20 17:09 Sod 3.375 gm/ Sodium Chloride IV 12/26/20 17:28 200 mls/hr STAT ONE Administration Discontinued Medications Generic Name Dose Route Start Last Admin Trade Name Greg PRN Reason Stop Dose Admin Acetaminophen 640 mg 12/26/20 13:13 12/26/20 13:18 Tylenol Suspension 160 Mg/5 Ml PO 12/26/20 13:14 640 mg STAT ONE Administration Acetaminophen Confirm 12/26/20 13:15 Tylenol Suspension 160 Mg/5 Ml Administered 12/26/20 13:16 Dose 160 mg .ROUTE .STK-MED ONE Enalaprilat 1.25 mg 12/26/20 11:51 12/26/20 13:25 Vasotec I.V. 2.5 Mg IV 12/26/20 11:52 Not Given STAT ONE Sodium Chloride Confirm 12/26/20 17:06 Sodium Chloride 100ml Mini-Bag Plus Administered 12/26/20 17:07 Dose 100 mls @ ud IV .STK-MED ONE Metoprolol Tartrate 5 mg 12/26/20 11:51 12/26/20 12:48 Lopressor 5 Mg/5 Ml Injection IV 12/26/20 11:52 5 mg STAT ONE Administration Metoprolol Tartrate Confirm 12/26/20 12:46 Lopressor 5 Mg/5 Ml Injection Administered 12/26/20 12:47 Dose 5 mg IV .STK-MED ONE Piperacillin Sod/Tazobactam Sod Confirm 12/26/20 17:06 Zosyn 3.375 Gm Vial Administered 12/26/20 17:07 Dose 3.375 gm IV .STK-MED ONE Lab/Rad Data: Laboratory Result Diagrams 12/26/20 11:51 12/26/20 12:45 Laboratory Results 12/26/20 12/26/20 12/26/20 Range/Units 15:00 13:17 13:17 WBC (4.0-10.5) K/mm3 RBC (4.1-5.6) M/mm3 Hgb (12.5-18.0) gm/dl Hct (42-50) % MCV (78-100) fl MCH (26-32) pg MCHC (32-36) g/dl RDW (11.5-14.0) % Plt Count (150-450) K/mm3 MPV (7.5-11.0) fl Gran % (36.0-66.0) % Eos # (Auto) (0-0.5) Absolute Lymphs (auto) (1.0-4.6) Absolute Monos (auto) (0.0-1.3) Lymphocytes % (24.0-44.0) % Monocytes % (0.0-12.0) % Eosinophils % (0.00-5.0) % Basophils % (0.0-0.4) % Absolute Granulocytes (1.4-6.9) Basophils # (0-0.4) Sodium (137-145) mmol/L Potassium (3.5-5.1) mmol/L Chloride (98-107) mmol/L Carbon Dioxide (22-30) mmol/L Anion Gap (5-15) MEQ/L BUN (9-20) mg/dL Creatinine (0.66-1.25) mg/dL Estimated GFR ML/MIN Glucose (74-106) mg/dL Lactic Acid (0.4-2.0) Calcium (8.4-10.2) mg/dL Magnesium (1.6-2.3) mg/dL Total Bilirubin (0.2-1.3) mg/dL AST (17-59) U/L ALT (0-50) U/L Alkaline Phosphatase (38-126) U/L Troponin I < 0.012 (0.000-0.034) ng/mL Serum Total Protein (6.3-8.2) g/dL Albumin (3.5-5.0) g/dL Amylase (30-110) U/L Lipase (23-300) U/L Thyroxine (T4) (5.53-10.96) ug/dL TSH 3rd Generation (0.47-4.68) mIU/L Urine Color (YELLOW) Urine Appearance (CLEAR) Urine pH (5-6) Ur Specific [place] (1.005-1.025) Urine Protein (Negative) Urine Ketones (NEGATIVE) Urine Blood (0-5) Arturo/ul Urine Nitrite (NEGATIVE) Urine Bilirubin (NEGATIVE) Urine Urobilinogen (0-1) mg/dL Ur Leukocyte Esterase (NEGATIVE) Urine WBC (Auto) (0-5) /HPF Urine RBC (Auto) (0-2) /HPF U Epithel Cells (Auto) (FEW) /HPF Urine Bacteria (Auto) (NEGATIVE) /HPF Urine Mucus (Auto) (NEGATIVE) /HPF Urine Culture Reflexed (NO) Urine Glucose (NEGATIVE) mg/dL Monoscreen (Negative) Influenza Type A Ag NEGATIVE (NEGATIVE) Influenza Type B Ag NEGATIVE (NEGATIVE) Group A Strep Antibody NOT DETECTED (NEGATIVE) Slides for Path Review 12/26/20 12/26/20 12/26/20 Range/Units 12:56 12:55 12:45 WBC (4.0-10.5) K/mm3 RBC (4.1-5.6) M/mm3 Hgb (12.5-18.0) gm/dl Hct (42-50) % MCV (78-100) fl MCH (26-32) pg MCHC (32-36) g/dl RDW (11.5-14.0) % Plt Count (150-450) K/mm3 MPV (7.5-11.0) fl Gran % (36.0-66.0) % Eos # (Auto) (0-0.5) Absolute Lymphs (auto) (1.0-4.6) Absolute Monos (auto) (0.0-1.3) Lymphocytes % (24.0-44.0) % Monocytes % (0.0-12.0) % Eosinophils % (0.00-5.0) % Basophils % (0.0-0.4) % Absolute Granulocytes (1.4-6.9) Basophils # (0-0.4) Sodium (137-145) mmol/L Potassium (3.5-5.1) mmol/L Chloride (98-107) mmol/L Carbon Dioxide (22-30) mmol/L Anion Gap (5-15) MEQ/L BUN (9-20) mg/dL Creatinine (0.66-1.25) mg/dL Estimated GFR ML/MIN Glucose (74-106) mg/dL Lactic Acid 2.0 (0.4-2.0) Calcium (8.4-10.2) mg/dL Magnesium (1.6-2.3) mg/dL Total Bilirubin (0.2-1.3) mg/dL AST (17-59) U/L ALT (0-50) U/L Alkaline Phosphatase (38-126) U/L Troponin I (0.000-0.034) ng/mL Serum Total Protein (6.3-8.2) g/dL Albumin (3.5-5.0) g/dL Amylase (30-110) U/L Lipase (23-300) U/L Thyroxine (T4) (5.53-10.96) ug/dL TSH 3rd Generation (0.47-4.68) mIU/L Urine Color YELLOW (YELLOW) Urine Appearance SLIGHTLY CLOUDY (CLEAR) Urine pH 7.0 (5-6) Ur Specific [place] 1.017 (1.005-1.025) Urine Protein 30 (Negative) Urine Ketones NEGATIVE (NEGATIVE) Urine Blood NEGATIVE (0-5) Arturo/ul Urine Nitrite NEGATIVE (NEGATIVE) Urine Bilirubin NEGATIVE (NEGATIVE) Urine Urobilinogen NEGATIVE (0-1) mg/dL Ur Leukocyte Esterase NEGATIVE (NEGATIVE) Urine WBC (Auto) 0-2 (0-5) /HPF Urine RBC (Auto) 11-15 (0-2) /HPF U Epithel Cells (Auto) NONE (FEW) /HPF Urine Bacteria (Auto) NONE (NEGATIVE) /HPF Urine Mucus (Auto) SLIGHT (NEGATIVE) /HPF Urine Culture Reflexed NO (NO) Urine Glucose 150 (NEGATIVE) mg/dL Monoscreen NEGATIVE (Negative) Influenza Type A Ag (NEGATIVE) Influenza Type B Ag (NEGATIVE) Group A Strep Antibody (NEGATIVE) Slides for Path Review 12/26/20 12/26/20 12/26/20 Range/Units 12:45 12:45 12:00 WBC (4.0-10.5) K/mm3 RBC (4.1-5.6) M/mm3 Hgb (12.5-18.0) gm/dl Hct (42-50) % MCV (78-100) fl MCH (26-32) pg MCHC (32-36) g/dl RDW (11.5-14.0) % Plt Count (150-450) K/mm3 MPV (7.5-11.0) fl Gran % (36.0-66.0) % Eos # (Auto) (0-0.5) Absolute Lymphs (auto) (1.0-4.6) Absolute Monos (auto) (0.0-1.3) Lymphocytes % (24.0-44.0) % Monocytes % (0.0-12.0) % Eosinophils % (0.00-5.0) % Basophils % (0.0-0.4) % Absolute Granulocytes (1.4-6.9) Basophils # (0-0.4) Sodium 119 L* (137-145) mmol/L Potassium 4.6 (3.5-5.1) mmol/L Chloride 83 L (98-107) mmol/L Carbon Dioxide 26 (22-30) mmol/L Anion Gap 15.2 H (5-15) MEQ/L BUN 11 (9-20) mg/dL Creatinine 0.47 L (0.66-1.25) mg/dL Estimated GFR > 60.0 ML/MIN Glucose 117 H (74-106) mg/dL Lactic Acid (0.4-2.0) Calcium 9.1 (8.4-10.2) mg/dL Magnesium 1.9 (1.6-2.3) mg/dL Total Bilirubin 0.50 (0.2-1.3) mg/dL AST 31 (17-59) U/L ALT 26 (0-50) U/L Alkaline Phosphatase 127 H (38-126) U/L Troponin I < 0.012 (0.000-0.034) ng/mL Serum Total Protein 7.7 (6.3-8.2) g/dL Albumin 4.6 (3.5-5.0) g/dL Amylase 54 (30-110) U/L Lipase 43 (23-300) U/L Thyroxine (T4) 6.22 (5.53-10.96) ug/dL TSH 3rd Generation 0.636 (0.47-4.68) mIU/L Urine Color (YELLOW) Urine Appearance (CLEAR) Urine pH (5-6) Ur Specific [place] (1.005-1.025) Urine Protein (Negative) Urine Ketones (NEGATIVE) Urine Blood (0-5) Arturo/ul Urine Nitrite (NEGATIVE) Urine Bilirubin (NEGATIVE) Urine Urobilinogen (0-1) mg/dL Ur Leukocyte Esterase (NEGATIVE) Urine WBC (Auto) (0-5) /HPF Urine RBC (Auto) (0-2) /HPF U Epithel Cells (Auto) (FEW) /HPF Urine Bacteria (Auto) (NEGATIVE) /HPF Urine Mucus (Auto) (NEGATIVE) /HPF Urine Culture Reflexed (NO) Urine Glucose (NEGATIVE) mg/dL Monoscreen (Negative) Influenza Type A Ag (NEGATIVE) Influenza Type B Ag (NEGATIVE) Group A Strep Antibody (NEGATIVE) Slides for Path Review 12/26/20 Range/Units 11:51 WBC 18.1 H (4.0-10.5) K/mm3 RBC 4.24 (4.1-5.6) M/mm3 Hgb 13.3 (12.5-18.0) gm/dl Hct 38.6 L (42-50) % MCV 91.0 (78-100) fl MCH 31.4 (26-32) pg MCHC 34.5 (32-36) g/dl RDW 12.4 (11.5-14.0) % Plt Count 207 (150-450) K/mm3 MPV 8.8 (7.5-11.0) fl Gran % 95.0 H (36.0-66.0) % Eos # (Auto) 0 (0-0.5) Absolute Lymphs (auto) 0.32 L (1.0-4.6) Absolute Monos (auto) 0.56 (0.0-1.3) Lymphocytes % 1.8 L (24.0-44.0) % Monocytes % 3.1 (0.0-12.0) % Eosinophils % 0.0 (0.00-5.0) % Basophils % 0.1 (0.0-0.4) % Absolute Granulocytes 17.18 H (1.4-6.9) Basophils # 0.02 (0-0.4) Sodium (137-145) mmol/L Potassium (3.5-5.1) mmol/L Chloride (98-107) mmol/L Carbon Dioxide (22-30) mmol/L Anion Gap (5-15) MEQ/L BUN (9-20) mg/dL Creatinine (0.66-1.25) mg/dL Estimated GFR ML/MIN Glucose (74-106) mg/dL Lactic Acid (0.4-2.0) Calcium (8.4-10.2) mg/dL Magnesium (1.6-2.3) mg/dL Total Bilirubin (0.2-1.3) mg/dL AST (17-59) U/L ALT (0-50) U/L Alkaline Phosphatase (38-126) U/L Troponin I (0.000-0.034) ng/mL Serum Total Protein (6.3-8.2) g/dL Albumin (3.5-5.0) g/dL Amylase (30-110) U/L Lipase (23-300) U/L Thyroxine (T4) (5.53-10.96) ug/dL TSH 3rd Generation (0.47-4.68) mIU/L Urine Color (YELLOW) Urine Appearance (CLEAR) Urine pH (5-6) Ur Specific [place] (1.005-1.025) Urine Protein (Negative) Urine Ketones (NEGATIVE) Urine Blood (0-5) Arturo/ul Urine Nitrite (NEGATIVE) Urine Bilirubin (NEGATIVE) Urine Urobilinogen (0-1) mg/dL Ur Leukocyte Esterase (NEGATIVE) Urine WBC (Auto) (0-5) /HPF Urine RBC (Auto) (0-2) /HPF U Epithel Cells (Auto) (FEW) /HPF Urine Bacteria (Auto) (NEGATIVE) /HPF Urine Mucus (Auto) (NEGATIVE) /HPF Urine Culture Reflexed (NO) Urine Glucose (NEGATIVE) mg/dL Monoscreen (Negative) Influenza Type A Ag (NEGATIVE) Influenza Type B Ag (NEGATIVE) Group A Strep Antibody (NEGATIVE) Slides for Path Review YES - Progress Progress Note: 12/26/20 13:22 Chest x-ray shows no acute cardiopulmonary process. 12/26/20 16:57 Cat scan of the abdomen and pelvis without contrast shows no acute intra- abdominal or intrapelvic process. 12/26/20 17:09 Medical decision making: This patient has leukocytosis and fever of unknown origin. He also has hyponatremia. He has heart rate, blood pressure and temperature have improved with treatment. I spoke with Dr. Drew Galeana and she agrees that we should bring him in the hospital. We will continue intravenous normal saline and intravenous antibiotics. We will recheck labs tomorrow morning. Discussed with DrKathryn: Laura Counseled pt/family regarding: lab results, diagnosis, rad results - Departure Departure Disposition: In-patient Admission Clinical Impression: Leukocytosis, Fever of unknown origin, Hyponatremia Condition: Fair Critical Care Time: No Referrals: SUSANA BALDWIN MD [Primary Care Provider] -
[2020-12-26] MEDS ORDERED: Sodium Chloride 0.9% 1000 ML 1,000 ML IV SCH (12:15)
[2020-12-26] MEDS ORDERED: Sodium Chloride 0.9% 1000 ML 1,000 ML ONE (12:46)
[2020-12-26 12:50] LABS: Absolute Neutrophil Ct (ANC) 17.18 (1.4-6.9); BASOPHIL % 0.1 % (0.0-0.4); Basophil (Absolute #) 0.02 (0-0.4); Eosinophil (Absolute #) 0 (0-0.5); Hematocrit 38.6 % (42-50); Hemoglobin 13.3 gm/dl (12.5-18.0); Lymphocyte (Absolute #) 0.32 (1.0-4.6); Lymphocytes % 1.8 % (24.0-44.0); Mean Corpuscular Hemoglobin 31.4 pg (26-32); Mean Corpuscular Hgb Concent. 34.5 g/dl (32-36); Mean Platelet Volume 8.8 fl (7.5-11.0); Monocyte (Absolute #) 0.56 (0.0-1.3); Monocytes % 3.1 % (0.0-12.0); Platelet Count 207 K/mm3 (150-450); Red Blood Count 4.24 M/mm3 (4.1-5.6); Red Cell Distribution Width 12.4 % (11.5-14.0); White Blood Count 18.1 K/mm3 (4.0-10.5)
[2020-12-26] MEDS ORDERED: TYLENOL SUSPENSION 160 MG/5 ML PO ONE (13:13)
--- NOTE | 2020-12-26 13:14 | XRAY ---
Exam: AP upright portable chest film from 12/26/2020. Comparison: Two-view chest film series from 10/27/2019. Indication: 60-year-old male with shortness of breath. Findings: Soft tissues from the patient's neck partially obscure the superior medial edge of the lung apices. The lungs have a mild daly-shaped configuration representing no change. The heart size is towards the upper limits of normal. There is a metallic power pack on the left with a small lead extending toward the medial left lung apex. Correlate clinically. I also note a couple metallic screw densities overlying the mid cervical spine on the left. Correlate with surgical history. Mild chronic fibrocalcific residuals are seen at the right lung base and left lower lung field. I see no acute airspace infiltrate, central vascular congestion, pneumothorax, or pleural effusion. The bones are considerably demineralized. Advanced arthritic changes are seen within both shoulders. Old rib fracture deformities are seen on the left. There is minimal convexity of the upper thoracic spine toward the left and the lower thoracic spine toward the right. Impression: 1. No acute cardiopulmonary disease is seen. See above.
[2020-12-26] MEDS ORDERED: TYLENOL SUSPENSION 160 MG/5 ML ONE (13:15)
[2020-12-26 13:21] LABS: Appearance SLIGHTLY CLOUDY (CLEAR); Bilirubin NEGATIVE (NEGATIVE); Blood NEGATIVE Ery/ul (0-5); Glucose 150 mg/dL (NEGATIVE); Ketones NEGATIVE (NEGATIVE); Leukocyte Esterase NEGATIVE (NEGATIVE); Mucus SLIGHT /HPF (NEGATIVE); Nitrite NEGATIVE (NEGATIVE); Protein,Urine Dip 30 (Negative); Specific Gravity 1.017 (1.005-1.025); Urobilinogen NEGATIVE mg/dL (0-1); WBC 0-2 /HPF (0-5)
[2020-12-26 13:32] LABS: ALBUMIN 4.6 g/dL (3.5-5.0); ALKALINE PHOSPHATASE 127 U/L (38-126); ANION GAP 15.2 MEQ/L (5-15); BLOOD UREA NITROGEN 11 mg/dL (9-20); CHLORIDE 83 mmol/L (98-107); Calcium 9.1 mg/dL (8.4-10.2); Carbon Dioxide 26 mmol/L (22-30); Creatinine 1 0.47 mg/dL (0.66-1.25); EST GLOMERULAR FILTRATION RATE > 60.0 ML/MIN; Glucose 117 mg/dL (74-106); MAGNESIUM 1.9 mg/dL (1.6-2.3); Potassium 4.6 mmol/L (3.5-5.1); SGOT/AST 31 U/L (17-59); SGPT/ALT 26 U/L (0-50); T4 (Thyroxine) 6.22 ug/dL (5.53-10.96); TSH, 3RD Generation 0.636 mIU/L (0.47-4.68); Total Protein 7.7 g/dL (6.3-8.2)
[2020-12-26 13:34] LABS: SODIUM 119 mmol/L (137-145)
[2020-12-26 13:46] LABS: INFLUENZA A NEGATIVE (NEGATIVE); INFLUENZA B NEGATIVE (NEGATIVE)
[2020-12-26 13:54] LABS: Slide Review 1 YES
[2020-12-26 15:15] LABS: AMYLASE 54 U/L (30-110); LIPASE 43 U/L (23-300)
[2020-12-26] MEDS ORDERED: Zosyn 3.375 GM Vial 3.375 GM in Sodium Chloride 100ML MINI-BAG PLUS 100 ML IV ONE (16:59)
--- NOTE | 2020-12-26 17:00 | XRAY ---
Exam: CT of the abdomen and pelvis without IV contrast from 12/26/2020. CTDI: 19.61 mGy Comparison: None. Indication: 60-year-old male with fever; leukocytosis. Technique: Non-IV contrast axial images were obtained through the abdomen and pelvis. Reconstructed coronal and sagittal images were created and reviewed. Both of the patient's arms are down by his side which mildly increases CT artifact. No CT oral contrast was given. Findings: The lung bases reveal a fairly large retrocardiac hiatal hernia measuring 6.4 cm x 5.2 cm in cross section on axial image #9. There also appears to be herniation of some intraperitoneal fat along the right side of the hiatal hernia. I believe there is some fluid within the distal esophageal lumen. Consider GERD. The transverse heart size appears slightly enlarged. Minimal linear scarring/atelectasis is seen within the left posterior lung sulcus. No posterior pleural fluid is seen. The liver is not enlarged. No definite focal hepatic mass or intrahepatic biliary duct distention is seen. The gallbladder is moderately distended measuring 4.5 cm in greatest diameter. At least a couple calcified gallstones are seen within the posterior aspect of the gallbladder lumen. No obvious gallbladder wall thickening is seen. No extrahepatic biliary duct distention is seen. The spleen is of normal size and reveals a couple small granulomatous calcifications. Both the pancreas and adrenal glands appear unremarkable. 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 Multiple bilateral renal calculi are seen without obvious hydronephrosis. There does appear to be at least a moderate sized extrarenal pelvi. The ureters reveal no definite dilation or ureterolith. Incidentally, there appears to be a cyst at the inferior aspect of the left kidney measuring +1.6 Hounsfield units and measuring about 4.6 cm in diameter. Atherosclerotic vascular calcification is seen within the abdominal aorta and iliac arteries. No abdominal aortic aneurysm or abnormal retroperitoneal lymphadenopathy is seen. There is a tiny fat-containing umbilical hernia. A bowel containing ventral hernia is not seen. There is no free intraperitoneal air. The colon appears long and redundant and reveals moderate stool within it. I see no evidence of definite bowel obstruction. Surgical suture material is seen within the sigmoid colon from prior bowel surgery. Correlate clinically. There does appear to be some thickening of the rectal wall which measures up to 1.2 cm in thickness along the right side on axial image #77. This could be due to proctitis. A malignancy is not excluded. Correlate clinically. The appendix is not definitely seen, although I note no secondary findings to suggest appendicitis. The seminal vesicles appear unremarkable. The prostate gland measures 5.0 cm in width and 3.6 cm in AP dimension suggesting mild enlargement. A Velásquez catheter with distal balloon is seen within the urinary bladder, the latter which is mostly decompressed. No other pelvic mass or abnormal pelvic lymphadenopathy is seen. I see no free intraperitoneal fluid. I note a fat-containing left inguinal hernia. Each groin appears unremarkable. The skeleton reveals bone demineralization. There is deformity of the left hip which could be due to an old healed traumatic process. Correlate with history. 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 Mild to moderate chronic compression deformity of the L5 vertebra is seen, particularly the superior and inferior endplates. Lower lumbar facet joint osteoarthritis is seen. Some degenerative spondylosis is seen within the visualized lower thoracolumbar spine. Some old fracture deformities are seen within the left lower rib cage. Impression: 1. Relatively large retrocardiac hiatal hernia. I also note some fluid within the distal thoracic esophageal lumen. Consider GERD. 2. Dilated gallbladder lumen with evidence of cholelithiasis. No definite biliary duct distention or definite gallbladder wall thickening is seen. Correlate clinically. 3. 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 I also see a moderate sized cyst adjacent to the inferior pole of the left kidney. No definite ureteral calculi are seen. 4. The colon is long and redundant and reveals moderate scattered stool. I also see evidence of prior bowel surgery with sutures in the sigmoid colon. Correlate with surgical history. More importantly, there appears to be some abnormal rectal wall thickening. Specifically, see axial image #77. This could be due to proctitis. However, malignancy is not excluded. 5. I see no definite abscess or free intraperitoneal fluid. 6. Urinary Velásquez catheter is seen within the urinary bladder lumen. I also note mild prostatomegaly, a fat-containing left inguinal hernia, and chronic skeletal findings, as discussed above.
[2020-12-26] MEDS ORDERED: Zosyn 3.375 GM Vial IV ONE (17:06)
[2020-12-26] MEDS ORDERED: Sodium Chloride 100ML MINI-BAG PLUS 100 ML IV ONE ×2 (17:06→23:26)
[2020-12-26] MEDS ORDERED: Zofran 4 MG/2 ML VIAL IV PRN (19:47)
[2020-12-26] MEDS ORDERED: TYLENOL 325 MG PO PRN (19:47)
[2020-12-26] MEDS ORDERED: Lopressor 25MG Tab ONE (21:30)
[2020-12-26] MEDS: Lopressor 25MG Tab PO SCH (21:50)
[2020-12-26] MEDS: LIORESAL 10 MG PO SCH (21:50)
[2020-12-26] MEDS ORDERED: NON-FORMULARY ITEM PO SCH ×4 (22:00)
[2020-12-26] MEDS: Zosyn 3.375 GM Vial 3.375 GM in Sodium Chloride 100ML MINI-BAG PLUS 100 ML IV SCH ×2 (22:34→23:27)
[2020-12-26] MEDS: Sodium Chloride 0.9% 1000 ML 1,000 ML IV SCH (22:34)
[2020-12-27] MEDS ORDERED: Sodium Chloride 100ML MINI-BAG PLUS 100 ML IV ONE (04:55)
[2020-12-27] MEDS ORDERED: Zosyn 3.375 GM Vial IV ONE (04:55)
[2020-12-27] MEDS: Zosyn 3.375 GM Vial 3.375 GM in Sodium Chloride 100ML MINI-BAG PLUS 100 ML IV SCH ×3 (05:16→18:03)
[2020-12-27 05:29] LABS: Absolute Neutrophil Ct (ANC) 9.24 (1.4-6.9); BASOPHIL % 0.1 % (0.0-0.4); Basophil (Absolute #) 0.01 (0-0.4); Eosinophil (Absolute #) 0 (0-0.5); Hematocrit 32.9 % (42-50); Hemoglobin 11.2 gm/dl (12.5-18.0); Lymphocyte (Absolute #) 0.66 (1.0-4.6); Lymphocytes % 6.3 % (24.0-44.0); Mean Cell Volume 92.9 fl (78-100); Mean Corpuscular Hemoglobin 31.6 pg (26-32); Mean Platelet Volume 8.9 fl (7.5-11.0); Monocyte (Absolute #) 0.59 (0.0-1.3); Monocytes % 5.6 % (0.0-12.0); Platelet Count 175 K/mm3 (150-450); Red Blood Count 3.54 M/mm3 (4.1-5.6); Red Cell Distribution Width 12.5 % (11.5-14.0); White Blood Count 10.5 K/mm3 (4.0-10.5)
[2020-12-27 05:56] LABS: ALBUMIN 3.5 g/dL (3.5-5.0); ALKALINE PHOSPHATASE 99 U/L (38-126); ANION GAP 9.5 MEQ/L (5-15); BLOOD UREA NITROGEN 14 mg/dL (9-20); CHLORIDE 90 mmol/L (98-107); Calcium 7.9 mg/dL (8.4-10.2); Carbon Dioxide 25 mmol/L (22-30); Creatinine 1 0.56 mg/dL (0.66-1.25); EST GLOMERULAR FILTRATION RATE > 60.0 ML/MIN; Glucose 112 mg/dL (74-106); SGOT/AST 34 U/L (17-59); SGPT/ALT 20 U/L (0-50); SODIUM 121 mmol/L (137-145); Total Protein 6.1 g/dL (6.3-8.2)
[2020-12-27] MEDS ORDERED: VENTOLIN COMMON CANISTER IH SCH (07:00)
[2020-12-27] MEDS: Sodium Chloride 0.9% 1000 ML 1,000 ML IV SCH ×2 (08:52→19:58)
--- NOTE | 2020-12-27 09:08 | PCM.HP ---
History of Present Illness - Chief Complaint Chief Complaint: Fever of unknown origin History of Present Illness: is a 60 year old male who presented to the ER last night with elevated pulse rate and blood pressure, found to be febrile on presentation. no cough, no vomiting, no abd pain. 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 He is feeling much better today, denies any symptoms of pain, no cough, no rash, no gi symptoms or gu symptoms. - Review of Systems Constitutional: No Fever, No Chills Respiratory: No Cough, No Short Of Breath Cardiac: No Chest Pain, No Edema, No Syncope Abdominal/Gastrointestinal: No Abdominal Pain, No Nausea, No Vomiting, No Diarrhea Genitourinary Symptoms: No Dysuria Skin: No Rash All Other Systems: Reviewed and Negative Medications & Allergies Home Medications: Home Medication List Multivitamin [Multivitamins] 1 each PO DAILY 06/16/14 [History Confirmed 12/26/20] Loratadine 10 mg [Claritin 10 mg] 10 mg PO DAILY 06/03/16 [History Confirmed 12/26/20] Brivaracetam [Briviact] 100 mg PO BID 05/30/18 [History Confirmed 12/26/20] Lacosamide [Vimpat] 200 mg PO BID 10/06/18 [History Confirmed 12/26/20] Baclofen 40 mg PO BID 09/21/19 [History Confirmed 12/26/20] Alendronate Sodium 70 mg [Fosamax 70 MG] 70 mg PO Q7D@0600 09/22/19 [History Confirmed 12/26/20] Metoprolol Tartrate 12.5 mg PO BID 10/07/19 [History Confirmed 12/26/20] Eslicarbazepine Acetate [Aptiom] 200 mg PO BID 12/26/20 [History Confirmed 12/26/20] Eslicarbazepine Acetate [Aptiom] 800 mg PO BID 12/26/20 [History Confirmed 12/26/20] Fluticasone Propionate [Flonase NASAL] 2 sprays NS DAILY 12/26/20 [History Confirmed 12/26/20] Losartan Potassium 50 mg [Cozaar 50 MG] 50 mg PO QAM 12/26/20 [History Confirmed 12/26/20] Polyethylene Glycol 3350 17 gm [Miralax Powder 17GM PACKET] 17 gm PO DAILY 12/26/20 [History Confirmed 12/26/20] Allergies/Adverse Reactions: Allergies Allergy/AdvReac Type Severity Reaction Status Date / Time adhesive tape Allergy Verified 12/26/20 11:55 - Past Medical History Past Medical History: Yes Neurological History: Seizures ENT History: No Pertinent History Cardiac History: No Pertinent History, Hypertension Respiratory History: No Pertinent History Endocrine Medical History: No Pertinent History Musculoskelatal History: No Pertinent History GI Medical History: No Pertinent History History: No Pertinent History Pyscho-Social History: Other Male Reproductive Disorders: No Pertinent History Comment: PT. 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 double hernia repair, multiple reconstruction surgerys to hand and arm/jaw - Social History Smoking Status: Never smoker Exposure to second hand smoke: No Alcohol: None Drug Use: none - Physical Exam Vital Signs: Vital Signs - 24 hr Temp Pulse Resp BP Pulse Ox 12/27/20 08:00 99.0 F 101 H 20 105/55 94 L 12/27/20 04:00 20 12/27/20 03:52 97.8 F 105 H 20 127/60 97 12/27/20 00:00 98.7 F 111 H 18 138/65 95 12/26/20 20:45 97 12/26/20 20:20 99.6 F 111 H 20 138/65 97 12/26/20 19:06 100.4 F 104 H 20 98 12/26/20 18:30 100.4 F 91 H 122/81 99 12/26/20 17:11 100.6 F 88 20 115/66 98 12/26/20 16:35 100.9 F 92 H 20 97 12/26/20 16:34 100.9 F 88 18 102/59 95 12/26/20 14:00 103.5 F 108 H 22 95/67 96 12/26/20 13:09 103.8 F 106 H 22 132/82 97 12/26/20 12:30 120 H 22 178/90 97 12/26/20 11:51 95 12/26/20 11:31 98.9 F 124 H 39 H 148/122 General Appearance: no apparent distress Neurologic Exam: alert, cooperative, motor weakness (chronic), slurred speech (chronic) Respiratory Exam: normal breath sounds, lungs clear, No respiratory distress Cardiovascular Exam: regular rate/rhythm, normal heart sounds, normal peripheral pulses Gastrointestinal/Abdomen Exam: soft, normal bowel sounds, No tenderness, No mass Extremity Exam: normal inspection, normal range of motion, pelvis stable Skin Exam: normal color, warm, dry, No rash Results - Labs Lab/Micro Results: Lab Results-Last 24 Hours 12/26/20 12/26/20 12/26/20 Range/Units 11:51 12:00 12:45 WBC 18.1 H (4.0-10.5) K/mm3 RBC 4.24 (4.1-5.6) M/mm3 Hgb 13.3 (12.5-18.0) gm/dl Hct 38.6 L (42-50) % MCV 91.0 (78-100) fl MCH 31.4 (26-32) pg MCHC 34.5 (32-36) g/dl RDW 12.4 (11.5-14.0) % Plt Count 207 (150-450) K/mm3 MPV 8.8 (7.5-11.0) fl Gran % 95.0 H (36.0-66.0) % Eos # (Auto) 0 (0-0.5) Absolute Lymphs (auto) 0.32 L (1.0-4.6) Absolute Monos (auto) 0.56 (0.0-1.3) Lymphocytes % 1.8 L (24.0-44.0) % Monocytes % 3.1 (0.0-12.0) % Eosinophils % 0.0 (0.00-5.0) % Basophils % 0.1 (0.0-0.4) % Absolute Granulocytes 17.18 H (1.4-6.9) Basophils # 0.02 (0-0.4) Sodium 119 L* (137-145) mmol/L Potassium 4.6 (3.5-5.1) mmol/L Chloride 83 L (98-107) mmol/L Carbon Dioxide 26 (22-30) mmol/L Anion Gap 15.2 H (5-15) MEQ/L BUN 11 (9-20) mg/dL Creatinine 0.47 L (0.66-1.25) mg/dL Estimated GFR > 60.0 ML/MIN Glucose 117 H (74-106) mg/dL Lactic Acid (0.4-2.0) Calcium 9.1 (8.4-10.2) mg/dL Magnesium 1.9 (1.6-2.3) mg/dL Total Bilirubin 0.50 (0.2-1.3) mg/dL AST 31 (17-59) U/L ALT 26 (0-50) U/L Alkaline Phosphatase 127 H (38-126) U/L Troponin I (0.000-0.034) ng/mL Serum Total Protein 7.7 (6.3-8.2) g/dL Albumin 4.6 (3.5-5.0) g/dL Amylase 54 (30-110) U/L Lipase 43 (23-300) U/L Thyroxine (T4) 6.22 (5.53-10.96) ug/dL TSH 3rd Generation 0.636 (0.47-4.68) mIU/L Urine Color (YELLOW) Urine Appearance (CLEAR) Urine pH (5-6) Ur Specific Henry (1.005-1.025) Urine Protein (Negative) Urine Ketones (NEGATIVE) Urine Blood (0-5) Arturo/ul Urine Nitrite (NEGATIVE) Urine Bilirubin (NEGATIVE) Urine Urobilinogen (0-1) mg/dL Ur Leukocyte Esterase (NEGATIVE) Urine WBC (Auto) (0-5) /HPF Urine RBC (Auto) (0-2) /HPF U Epithel Cells (Auto) (FEW) /HPF Urine Bacteria (Auto) (NEGATIVE) /HPF Urine Mucus (Auto) (NEGATIVE) /HPF Urine Culture Reflexed (NO) Urine Glucose (NEGATIVE) mg/dL Monoscreen (Negative) Influenza Type A Ag (NEGATIVE) Influenza Type B Ag (NEGATIVE) SARS-CoV-2 (PCR) (NEGATIVE) Group A Strep Antibody (NEGATIVE) Slides for Path Review YES 12/26/20 12/26/20 12/26/20 Range/Units 12:45 12:45 12:55 WBC (4.0-10.5) K/mm3 RBC (4.1-5.6) M/mm3 Hgb (12.5-18.0) gm/dl Hct (42-50) % MCV (78-100) fl MCH (26-32) pg MCHC (32-36) g/dl RDW (11.5-14.0) % Plt Count (150-450) K/mm3 MPV (7.5-11.0) fl Gran % (36.0-66.0) % Eos # (Auto) (0-0.5) Absolute Lymphs (auto) (1.0-4.6) Absolute Monos (auto) (0.0-1.3) Lymphocytes % (24.0-44.0) % Monocytes % (0.0-12.0) % Eosinophils % (0.00-5.0) % Basophils % (0.0-0.4) % Absolute Granulocytes (1.4-6.9) Basophils # (0-0.4) Sodium (137-145) mmol/L Potassium (3.5-5.1) mmol/L Chloride (98-107) mmol/L Carbon Dioxide (22-30) mmol/L Anion Gap (5-15) MEQ/L BUN (9-20) mg/dL Creatinine (0.66-1.25) mg/dL Estimated GFR ML/MIN Glucose (74-106) mg/dL Lactic Acid 2.0 (0.4-2.0) Calcium (8.4-10.2) mg/dL Magnesium (1.6-2.3) mg/dL Total Bilirubin (0.2-1.3) mg/dL AST (17-59) U/L ALT (0-50) U/L Alkaline Phosphatase (38-126) U/L Troponin I < 0.012 (0.000-0.034) ng/mL Serum Total Protein (6.3-8.2) g/dL Albumin (3.5-5.0) g/dL Amylase (30-110) U/L Lipase (23-300) U/L Thyroxine (T4) (5.53-10.96) ug/dL TSH 3rd Generation (0.47-4.68) mIU/L Urine Color (YELLOW) Urine Appearance (CLEAR) Urine pH (5-6) Ur Specific Henry (1.005-1.025) Urine Protein (Negative) Urine Ketones (NEGATIVE) Urine Blood (0-5) Arturo/ul Urine Nitrite (NEGATIVE) Urine Bilirubin (NEGATIVE) Urine Urobilinogen (0-1) mg/dL Ur Leukocyte Esterase (NEGATIVE) Urine WBC (Auto) (0-5) /HPF Urine RBC (Auto) (0-2) /HPF U Epithel Cells (Auto) (FEW) /HPF Urine Bacteria (Auto) (NEGATIVE) /HPF Urine Mucus (Auto) (NEGATIVE) /HPF Urine Culture Reflexed (NO) Urine Glucose (NEGATIVE) mg/dL Monoscreen NEGATIVE (Negative) Influenza Type A Ag (NEGATIVE) Influenza Type B Ag (NEGATIVE) SARS-CoV-2 (PCR) (NEGATIVE) Group A Strep Antibody (NEGATIVE) Slides for Path Review 12/26/20 12/26/20 12/26/20 Range/Units 12:56 13:17 13:17 WBC (4.0-10.5) K/mm3 RBC (4.1-5.6) M/mm3 Hgb (12.5-18.0) gm/dl Hct (42-50) % MCV (78-100) fl MCH (26-32) pg MCHC (32-36) g/dl RDW (11.5-14.0) % Plt Count (150-450) K/mm3 MPV (7.5-11.0) fl Gran % (36.0-66.0) % Eos # (Auto) (0-0.5) Absolute Lymphs (auto) (1.0-4.6) Absolute Monos (auto) (0.0-1.3) Lymphocytes % (24.0-44.0) % Monocytes % (0.0-12.0) % Eosinophils % (0.00-5.0) % Basophils % (0.0-0.4) % Absolute Granulocytes (1.4-6.9) Basophils # (0-0.4) Sodium (137-145) mmol/L Potassium (3.5-5.1) mmol/L Chloride (98-107) mmol/L Carbon Dioxide (22-30) mmol/L Anion Gap (5-15) MEQ/L BUN (9-20) mg/dL Creatinine (0.66-1.25) mg/dL Estimated GFR ML/MIN Glucose (74-106) mg/dL Lactic Acid (0.4-2.0) Calcium (8.4-10.2) mg/dL Magnesium (1.6-2.3) mg/dL Total Bilirubin (0.2-1.3) mg/dL AST (17-59) U/L ALT (0-50) U/L Alkaline Phosphatase (38-126) U/L Troponin I (0.000-0.034) ng/mL Serum Total Protein (6.3-8.2) g/dL Albumin (3.5-5.0) g/dL Amylase (30-110) U/L Lipase (23-300) U/L Thyroxine (T4) (5.53-10.96) ug/dL TSH 3rd Generation (0.47-4.68) mIU/L Urine Color YELLOW (YELLOW) Urine Appearance SLIGHTLY CLOUDY (CLEAR) Urine pH 7.0 (5-6) Ur Specific Henry 1.017 (1.005-1.025) Urine Protein 30 (Negative) Urine Ketones NEGATIVE (NEGATIVE) Urine Blood NEGATIVE (0-5) Arturo/ul Urine Nitrite NEGATIVE (NEGATIVE) Urine Bilirubin NEGATIVE (NEGATIVE) Urine Urobilinogen NEGATIVE (0-1) mg/dL Ur Leukocyte Esterase NEGATIVE (NEGATIVE) Urine WBC (Auto) 0-2 (0-5) /HPF Urine RBC (Auto) 11-15 (0-2) /HPF U Epithel Cells (Auto) NONE (FEW) /HPF Urine Bacteria (Auto) NONE (NEGATIVE) /HPF Urine Mucus (Auto) SLIGHT (NEGATIVE) /HPF Urine Culture Reflexed NO (NO) Urine Glucose 150 (NEGATIVE) mg/dL Monoscreen (Negative) Influenza Type A Ag NEGATIVE (NEGATIVE) Influenza Type B Ag NEGATIVE (NEGATIVE) SARS-CoV-2 (PCR) (NEGATIVE) Group A Strep Antibody NOT DETECTED (NEGATIVE) Slides for Path Review 12/26/20 12/26/20 12/26/20 Range/Units 15:00 17:31 17:35 WBC (4.0-10.5) K/mm3 RBC (4.1-5.6) M/mm3 Hgb (12.5-18.0) gm/dl Hct (42-50) % MCV (78-100) fl MCH (26-32) pg MCHC (32-36) g/dl RDW (11.5-14.0) % Plt Count (150-450) K/mm3 MPV (7.5-11.0) fl Gran % (36.0-66.0) % Eos # (Auto) (0-0.5) Absolute Lymphs (auto) (1.0-4.6) Absolute Monos (auto) (0.0-1.3) Lymphocytes % (24.0-44.0) % Monocytes % (0.0-12.0) % Eosinophils % (0.00-5.0) % Basophils % (0.0-0.4) % Absolute Granulocytes (1.4-6.9) Basophils # (0-0.4) Sodium (137-145) mmol/L Potassium (3.5-5.1) mmol/L Chloride (98-107) mmol/L Carbon Dioxide (22-30) mmol/L Anion Gap (5-15) MEQ/L BUN (9-20) mg/dL Creatinine (0.66-1.25) mg/dL Estimated GFR ML/MIN Glucose (74-106) mg/dL Lactic Acid (0.4-2.0) Calcium (8.4-10.2) mg/dL Magnesium (1.6-2.3) mg/dL Total Bilirubin (0.2-1.3) mg/dL AST (17-59) U/L ALT (0-50) U/L Alkaline Phosphatase (38-126) U/L Troponin I < 0.012 < 0.012 (0.000-0.034) ng/mL Serum Total Protein (6.3-8.2) g/dL Albumin (3.5-5.0) g/dL Amylase (30-110) U/L Lipase (23-300) U/L Thyroxine (T4) (5.53-10.96) ug/dL TSH 3rd Generation (0.47-4.68) mIU/L Urine Color (YELLOW) Urine Appearance (CLEAR) Urine pH (5-6) Ur Specific Henry (1.005-1.025) Urine Protein (Negative) Urine Ketones (NEGATIVE) Urine Blood (0-5) Arturo/ul Urine Nitrite (NEGATIVE) Urine Bilirubin (NEGATIVE) Urine Urobilinogen (0-1) mg/dL Ur Leukocyte Esterase (NEGATIVE) Urine WBC (Auto) (0-5) /HPF Urine RBC (Auto) (0-2) /HPF U Epithel Cells (Auto) (FEW) /HPF Urine Bacteria (Auto) (NEGATIVE) /HPF Urine Mucus (Auto) (NEGATIVE) /HPF Urine Culture Reflexed (NO) Urine Glucose (NEGATIVE) mg/dL Monoscreen (Negative) Influenza Type A Ag (NEGATIVE) Influenza Type B Ag (NEGATIVE) SARS-CoV-2 (PCR) NEGATIVE (NEGATIVE) Group A Strep Antibody (NEGATIVE) Slides for Path Review 12/27/20 12/27/20 Range/Units 05:29 05:29 WBC 10.5 (4.0-10.5) K/mm3 RBC 3.54 L (4.1-5.6) M/mm3 Hgb 11.2 L (12.5-18.0) gm/dl Hct 32.9 L (42-50) % MCV 92.9 (78-100) fl MCH 31.6 (26-32) pg MCHC 34.0 (32-36) g/dl RDW 12.5 (11.5-14.0) % Plt Count 175 (150-450) K/mm3 MPV 8.9 (7.5-11.0) fl Gran % 88.0 H (36.0-66.0) % Eos # (Auto) 0 (0-0.5) Absolute Lymphs (auto) 0.66 L (1.0-4.6) Absolute Monos (auto) 0.59 (0.0-1.3) Lymphocytes % 6.3 L (24.0-44.0) % Monocytes % 5.6 (0.0-12.0) % Eosinophils % 0.0 (0.00-5.0) % Basophils % 0.1 (0.0-0.4) % Absolute Granulocytes 9.24 H (1.4-6.9) Basophils # 0.01 (0-0.4) Sodium 121 L (137-145) mmol/L Potassium 4.0 (3.5-5.1) mmol/L Chloride 90 L (98-107) mmol/L Carbon Dioxide 25 (22-30) mmol/L Anion Gap 9.5 (5-15) MEQ/L BUN 14 (9-20) mg/dL Creatinine 0.56 L (0.66-1.25) mg/dL Estimated GFR > 60.0 ML/MIN Glucose 112 H (74-106) mg/dL Lactic Acid (0.4-2.0) Calcium 7.9 L (8.4-10.2) mg/dL Magnesium (1.6-2.3) mg/dL Total Bilirubin 0.30 (0.2-1.3) mg/dL AST 34 (17-59) U/L ALT 20 (0-50) U/L Alkaline Phosphatase 99 (38-126) U/L Troponin I (0.000-0.034) ng/mL Serum Total Protein 6.1 L (6.3-8.2) g/dL Albumin 3.5 (3.5-5.0) g/dL Amylase (30-110) U/L Lipase (23-300) U/L Thyroxine (T4) (5.53-10.96) ug/dL TSH 3rd Generation (0.47-4.68) mIU/L Urine Color (YELLOW) Urine Appearance (CLEAR) Urine pH (5-6) Ur Specific Henry (1.005-1.025) Urine Protein (Negative) Urine Ketones (NEGATIVE) Urine Blood (0-5) Arturo/ul Urine Nitrite (NEGATIVE) Urine Bilirubin (NEGATIVE) Urine Urobilinogen (0-1) mg/dL Ur Leukocyte Esterase (NEGATIVE) Urine WBC (Auto) (0-5) /HPF Urine RBC (Auto) (0-2) /HPF U Epithel Cells (Auto) (FEW) /HPF Urine Bacteria (Auto) (NEGATIVE) /HPF Urine Mucus (Auto) (NEGATIVE) /HPF Urine Culture Reflexed (NO) Urine Glucose (NEGATIVE) mg/dL Monoscreen (Negative) Influenza Type A Ag (NEGATIVE) Influenza Type B Ag (NEGATIVE) SARS-CoV-2 (PCR) (NEGATIVE) Group A Strep Antibody (NEGATIVE) Slides for Path Review - Radiology Impressions Radiology Exams & Impressions: Radiology Procedures Category Date Time Status ABDOMEN AND PELVIS W/0 CONTRAS [CT] Stat Exams 12/26/20 15:03 Completed CHEST 1 VIEW (PORTABLE) Stat Exams 12/26/20 12:08 Completed Assessment/Plan (1) Fever of unknown origin Current Visit: Yes Status: Acute Assessment & Plan: cultures pending, on zosyn emperically awaiting culture results. (2) Hyponatremia Current Visit: Yes Status: Acute Assessment & Plan: improving at this time Code(s): E87.1 - HYPO-OSMOLALITY AND HYPONATREMIA (3) Leukocytosis Current Visit: Yes Status: Acute Assessment & Plan: resolved since admission, covid negative, cultures pending. Code(s): D72.829 - ELEVATED WHITE BLOOD CELL COUNT, UNSPECIFIED (4) Left hemiparesis Current Visit: No Status: Chronic Code(s): G81.94 - HEMIPLEGIA, UNSPECIFIED AFFECTING LEFT NONDOMINANT SIDE (5) Post-traumatic brain syndrome Current Visit: No Status: Chronic Code(s): F07.81 - POSTCONCUSSIONAL SYNDROME (6) Seizure disorder Current Visit: No Status: Chronic Code(s): G40.909 - EPILEPSY, UNSP, NOT INTRACTABLE, WITHOUT STATUS EPILEPTICUS
[2020-12-27] MEDS ORDERED: THERAGRAN MULTIVITAMIN PO SCH (10:00)
[2020-12-27] MEDS ORDERED: NON-FORMULARY ITEM (Multivitamin [Multivitamins] 1 EACH) PO SCH (10:00)
[2020-12-27] MEDS: LIORESAL 10 MG PO SCH ×2 (10:34→22:08)
[2020-12-27] MEDS: CLARITIN 10 MG PO SCH (10:35)
[2020-12-27] MEDS: Lopressor 25MG Tab PO SCH ×2 (10:35→22:08)
[2020-12-27] MEDS: Cozaar 50 MG PO SCH (10:35)
[2020-12-27] MEDS: PATIENT OWN MEDICATION PO SCH ×8 (10:39→22:11)
[2020-12-27] MEDS: Miralax Powder 17GM PACKET PO SCH (10:41)
[2020-12-27] MEDS: Flonase NASAL NS SCH (10:41)
[2020-12-28] MEDS: Zosyn 3.375 GM Vial 3.375 GM in Sodium Chloride 100ML MINI-BAG PLUS 100 ML IV SCH ×2 (00:02→06:03)
[2020-12-28 04:42] VITALS: BP 115/59; PULSE 88; O2SAT 94
[2020-12-28 05:43] LABS: Absolute Neutrophil Ct (ANC) 4.82 (1.4-6.9); BASOPHIL % 0.2 % (0.0-0.4); Basophil (Absolute #) 0.01 (0-0.4); Eosinophil % 1.1 % (0.00-5.0); Eosinophil (Absolute #) 0.07 (0-0.5); Hematocrit 30.8 % (42-50); Hemoglobin 10.4 gm/dl (12.5-18.0); Lymphocyte (Absolute #) 1.08 (1.0-4.6); Lymphocytes % 16.4 % (24.0-44.0); Mean Cell Volume 94.2 fl (78-100); Mean Corpuscular Hemoglobin 31.8 pg (26-32); Mean Corpuscular Hgb Concent. 33.8 g/dl (32-36); Mean Platelet Volume 9.3 fl (7.5-11.0); Monocyte (Absolute #) 0.62 (0.0-1.3); Monocytes % 9.4 % (0.0-12.0); Neutrophil % 72.9 % (36.0-66.0); Platelet Count 160 K/mm3 (150-450); Red Blood Count 3.27 M/mm3 (4.1-5.6); Red Cell Distribution Width 12.6 % (11.5-14.0); White Blood Count 6.6 K/mm3 (4.0-10.5)
[2020-12-28 05:49] LABS: ANION GAP 9.2 MEQ/L (5-15); BLOOD UREA NITROGEN 10 mg/dL (9-20); CHLORIDE 93 mmol/L (98-107); Calcium 7.5 mg/dL (8.4-10.2); Carbon Dioxide 25 mmol/L (22-30); Creatinine 1 0.52 mg/dL (0.66-1.25); EST GLOMERULAR FILTRATION RATE > 60.0 ML/MIN; Glucose 101 mg/dL (74-106); Potassium 3.7 mmol/L (3.5-5.1); SODIUM 124 mmol/L (137-145)
[2020-12-28] MEDS ORDERED: Fosamax 70 MG PO SCH (06:00)
[2020-12-28] MEDS: Sodium Chloride 0.9% 1000 ML 1,000 ML IV SCH (06:05)
--- NOTE | 2020-12-28 08:13 | PCM.DS ---
Discharge Summary Date of Admission: 12/26/20 19:46 Admitting Physician: SUSANA BALDWIN Primary Care Provider: SUSANA BALDWIN Allergies Allergies adhesive tape Allergy (Verified 12/26/20 11:55) Hospital Summary - Hospital Course Hospital Course: patient was admitted with fever, has no cough, no rash, no gi symptoms. chest xray was negative, ct abd/pel normal and u/a was negative. wbc normalized and he has been afebrile, blood cultures neg x 2. - Vitals & Intake/Output Vital Signs: Vital Signs Temperature 97.3 F 12/28/20 04:00 Pulse Rate 88 12/28/20 04:00 Respiratory Rate 15 12/28/20 04:00 Blood Pressure 115/59 12/28/20 04:00 O2 Sat by Pulse Oximetry 94 L 12/28/20 04:00 Intake & Output: Intake & Output 12/25/20 12/26/20 12/27/20 12/28/20 11:59 11:59 11:59 11:59 Intake Total 1914 2862 Output Total 1000 2750 Balance 914 112 Weight 90.718 kg 93.8 kg - Lab Result Diagrams: 12/28/20 04:30 12/28/20 04:30 Lab Results-Last 24 Hrs: Lab Results-Last 24 Hours 12/28/20 12/28/20 Range/Units 04:30 04:30 WBC 6.6 (4.0-10.5) K/mm3 RBC 3.27 L (4.1-5.6) M/mm3 Hgb 10.4 L (12.5-18.0) gm/dl Hct 30.8 L (42-50) % MCV 94.2 (78-100) fl MCH 31.8 (26-32) pg MCHC 33.8 (32-36) g/dl RDW 12.6 (11.5-14.0) % Plt Count 160 (150-450) K/mm3 MPV 9.3 (7.5-11.0) fl Gran % 72.9 H (36.0-66.0) % Eos # (Auto) 0.07 (0-0.5) Absolute Lymphs (auto) 1.08 (1.0-4.6) Absolute Monos (auto) 0.62 (0.0-1.3) Lymphocytes % 16.4 L (24.0-44.0) % Monocytes % 9.4 (0.0-12.0) % Eosinophils % 1.1 (0.00-5.0) % Basophils % 0.2 (0.0-0.4) % Absolute Granulocytes 4.82 (1.4-6.9) Basophils # 0.01 (0-0.4) Sodium 124 L (137-145) mmol/L Potassium 3.7 (3.5-5.1) mmol/L Chloride 93 L (98-107) mmol/L Carbon Dioxide 25 (22-30) mmol/L Anion Gap 9.2 (5-15) MEQ/L BUN 10 (9-20) mg/dL Creatinine 0.52 L (0.66-1.25) mg/dL Estimated GFR > 60.0 ML/MIN Glucose 101 (74-106) mg/dL Calcium 7.5 L (8.4-10.2) mg/dL Micro Results-Entire Visit: Microbiology 12/26/20 12:30 Blood Culture - Preliminary Blood NO GROWTH TO DATE 12/26/20 12:25 Blood Culture - Preliminary Blood NO GROWTH TO DATE - Radiology Exams Ordered Rad Exams-Entire Visit: Radiology Procedures Category Date Time Status ABDOMEN AND PELVIS W/0 CONTRAS [CT] Stat Exams 12/26/20 15:03 Completed CHEST 1 VIEW (PORTABLE) Stat Exams 12/26/20 12:08 Completed - Procedures and Test Procedures and Tests throughout Hospitalization: Therapy Orders & Screens 12/26/20 21:48 Respiratory MDI BID Comment: Diagnosis: Fever of unknown origin 12/27/20 22:00 BiPap/CPAP ROUTINE Comment: home unit per home settings Diagnosis: Fever of unknown origin Discharge Exam General Appearance: no apparent distress Neurologic Exam: alert, cooperative, motor weakness (chronic), slurred speech (chronic) Respiratory Exam: normal breath sounds, lungs clear, No respiratory distress Cardiovascular Exam: regular rate/rhythm, normal heart sounds Gastrointestinal/Abdomen Exam: soft, No tenderness, No mass Skin Exam: normal color, warm, dry Final Diagnosis/Problem List - Final Discharge Diagnosis/Problem (1) Fever of unknown origin Current Visit: Yes Status: Acute Assessment & Plan: cultures are negative, no obvious etiology, presumed viral. no further abx therapy on discharge. (2) Hyponatremia Current Visit: Yes Status: Acute Assessment & Plan: improved with hydration Code(s): E87.1 - HYPO-OSMOLALITY AND HYPONATREMIA (3) Leukocytosis Current Visit: Yes Status: Acute Assessment & Plan: no obvious source of infection, resolved Code(s): D72.829 - ELEVATED WHITE BLOOD CELL COUNT, UNSPECIFIED (4) Left hemiparesis Current Visit: No Status: Chronic Code(s): G81.94 - HEMIPLEGIA, UNSPECIFIED AFFECTING LEFT NONDOMINANT SIDE (5) Post-traumatic brain syndrome Current Visit: No Status: Chronic Code(s): F07.81 - POSTCONCUSSIONAL SYNDROME (6) Seizure disorder Current Visit: No Status: Chronic Code(s): G40.909 - EPILEPSY, UNSP, NOT INTRACTABLE, WITHOUT STATUS EPILEPTICUS - Discharge Disposition: Home, Self-Care Condition: Good Prescriptions: Continue Multivitamin [Multivitamins] 1 each PO DAILY Loratadine 10 mg [Claritin 10 mg] 10 mg PO DAILY Brivaracetam [Briviact] 100 mg PO BID Lacosamide [Vimpat] 200 mg PO BID Baclofen 40 mg PO BID Alendronate Sodium 70 mg [Fosamax 70 MG] 70 mg PO Q7D@0600 Metoprolol Tartrate 12.5 mg PO BID Polyethylene Glycol 3350 17 gm [Miralax Powder 17GM PACKET] 17 gm PO DAILY Fluticasone Propionate [Flonase NASAL] 2 sprays NS DAILY Losartan Potassium 50 mg [Cozaar 50 MG] 50 mg PO QAM Eslicarbazepine Acetate [Aptiom] 200 mg PO BID Eslicarbazepine Acetate [Aptiom] 800 mg PO BID Follow up with: SUSANA BALDWIN MD [Primary Care Provider] -
[2020-12-28] MEDS: LIORESAL 10 MG PO SCH (08:39)
[2020-12-28] MEDS: PATIENT OWN MEDICATION PO SCH ×4 (08:42→08:44)
[2020-12-28] MEDS: Lopressor 25MG Tab PO SCH (08:45)
[2020-12-28] MEDS: Cozaar 50 MG PO SCH (08:45)
[2020-12-28] MEDS: CLARITIN 10 MG PO SCH (08:47)
[2020-12-28] MEDS: Flonase NASAL NS SCH (09:53)
[2020-12-28] MEDS: Miralax Powder 17GM PACKET PO SCH (09:54)
== END 2020-12-28 10:50 | disposition home or self-care (01) | DRG 864 ==
LOC: ED 11:28 → MED SURG 19:46 → OBSVTOIN 19:46
PROVIDERS: ADMIT Family Medicine; ATTEND Family Medicine
DX: R50.9 Fever, unspecified (principal); E87.1 Hypo-osmolality and hyponatremia; G81.94 Hemiplegia, unspecified affecting left nondominant side; D72.829 Elevated white blood cell count, unspecified; Z87.820 Personal history of traumatic brain injury; G40.909 Epilepsy, unspecified, not intractable, without status epilepticus; Z79.899 Other long term (current) drug therapy; Z20.822 Contact with and (suspected) exposure to COVID-19; Z99.3 Dependence on wheelchair
CPT/HCPCS: 36000; 36415; 51702; 71045; 74176; 80048; 80053; 81001; 82150; 83605; 83690; 83735; 84436; 84443; 84484; 85025; 86308; 87040; 87400; 87651; 93005; 93041; 94760; 96374; 99285; U0003; A9270-GY

== ENCOUNTER 2021-05-15 12:33 | Inpatient (IN) | payer MEDICARE ==
[2021-05-15 14:03] LABS: Absolute Neutrophil Ct (ANC) 5.63 (1.4-6.9); Basophil (Absolute #) 0.01 (0-0.4); Eosinophil % 0.4 % (0.00-5.0); Eosinophil (Absolute #) 0.03 (0-0.5); Hematocrit 51.4 % (42-50); Lymphocyte (Absolute #) 2.15 (1.0-4.6); Lymphocytes % 25.5 % (24.0-44.0); Mean Cell Volume 102.8 fl (78-100); Mean Corpuscular Hgb Concent. 31.1 g/dl (32-36); Mean Platelet Volume 10.5 fl (7.5-11.0); Monocytes % 7.1 % (0.0-12.0); Neutrophil % 66.9 % (36.0-66.0); Platelet Count 206 K/mm3 (150-450); Red Cell Distribution Width 13.5 % (11.5-14.0); White Blood Count 8.4 K/mm3 (4.0-10.5)
--- NOTE | 2021-05-15 14:13 | ERPHSYRPT ---
- History of Present Illness Time Seen by Provider: 05/15/21 12:50 Source: patient Exam Limitations: no limitations Patient Subjective Stated Complaint: pt brother states "He has been fighting low sodium so Dr. Jane sent him to Dr. Burton and he put him on a fluid restriction to try and increase his blood sodium and when it didn't work he had him take URE A to increase his sodium. He gave him a low dose but it sent his sodium to [address] Burton office called and wanted him to go to an ED to get another level to make sure and maybe some fluids to try and bring it down." Triage Nursing Assessment: Pt presented in motorized wheelchair with bilat lower leg braces. PT mostly non verbal and resting on the bed comfortably. Pt started the new medication two and a half weeks ago. Timing/Duration: today Severity: moderate Allergies/Adverse Reactions: adhesive tape Allergy (Verified 05/15/21 18:43) Home Medications: Multivitamin [Multivitamins] 1 each PO 0800 06/16/14 [History] Loratadine 10 mg [Claritin 10 mg] 10 mg PO 0800 06/03/16 [History] Brivaracetam [Briviact] 100 mg PO 0800,1800 05/30/18 [History] Lacosamide [Vimpat] 200 mg PO 0800,1800 10/06/18 [History] Baclofen 40 mg PO 0800,1800 09/21/19 [History] Alendronate Sodium 70 mg [Fosamax 70 MG] 70 mg PO Q7D@0609/22/19 [History] Metoprolol Tartrate 12.5 mg PO 0800,1800 10/07/19 [History] Eslicarbazepine Acetate [Aptiom] 200 mg PO 0800,1800 12/26/20 [History] Eslicarbazepine Acetate [Aptiom] 800 mg PO 0800,1800 12/26/20 [History] Fluticasone Propionate [Flonase [place]AL] 2 [place] [address]/26/20 [History] Losartan Potassium 50 mg [Cozaar 50 MG] 50 mg PO 0812/26/20 [History] Polyethylene Glycol 3350 17 gm [Miralax Powder 17GM PACKET] 17 gm PO 1800 12/26/20 [History] Albuterol 8 gm Mdi Hfa [Ventolin Hfa MDI] 2 puff IH 0800,1800 05/15/21 [History] Hx Tetanus, Diphtheria Vaccination/Date Given: No Hx Influenza Vaccination/Date Given: No Hx Pneumococcal Vaccination/Date Given: No Immunizations Up to Date: Yes Travel Risk - International Travel Have you traveled outside of the country in past 3 weeks: No (N) If Yes, where;: N - Coronavirus Screening Are you exhibiting any of the following symptoms?: No Close contact with a COVID-19 positive Pt in past 14-21 Days: No - Vaccine Status Have you recieved a Covid-19 vaccination: Yes Daily Release [employer]: [employer] - Review of Systems All Other Systems: Unable due to condition - Past Medical History Pertinent Past Medical History: Yes Neurological History: Seizures ENT History: No Pertinent History Cardiac History: No Pertinent History, Hypertension Respiratory History: No Pertinent History Endocrine Medical History: No Pertinent History Musculoskeletal History: No Pertinent History GI Medical History: No Pertinent History History: No Pertinent History Psycho-Social History: Other Male Reproductive Disorders: No Pertinent History Other Medical History: PT. 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 double hernia repair, multiple reconstruction surgerys to hand and arm/jaw - Social History Smoking Status: Never smoker Exposure to second hand smoke: No Drug Use: none Patient Lives Alone: No - Nursing Vital Signs Nursing Vital Signs: Initial Vital Signs Temperature 97.6 F 05/15/21 12:45 Pulse Rate 100 H 05/15/21 12:45 Respiratory Rate 20 05/15/21 12:45 Blood Pressure 111/78 05/15/21 12:45 O2 Sat by Pulse Oximetry 92 L 05/15/21 12:45 Pain Scale Pain Intensity 0 - Physical Exam General Appearance: no apparent distress, alert Eye Exam: PERRL/EOMI, eyes nml inspection, No scleral icterus Ears, Nose, Throat Exam: normal ENT inspection, TMs normal, pharynx normal, moist mucous membranes Neck Exam: normal inspection, non-tender, supple, full range of motion Respiratory Exam: normal breath sounds, lungs clear, airway intact, No respiratory distress Cardiovascular Exam: regular rate/rhythm, normal heart sounds, normal peripheral pulses Gastrointestinal/Abdomen Exam: soft, normal bowel sounds, No tenderness, No mass Back Exam: normal inspection, normal range of motion, No CVA tenderness, No vertebral tenderness Extremity Exam: normal range of motion, pelvis stable, other, No amputations (Bilateral lower extremity AFOs) Neurologic Exam: other (A mass. Patient not answering questions at this time. Patient somewhat somnolent. Patient is a DNR/DNI), No motor deficits Skin Exam: normal color, warm, dry, No rash Lymphatic Exam: No adenopathy SpO2 Interpretation: normal SpO2: 92 O2 Delivery: Room Air - Course EKG Interpreted by Me: RATE (98), Sinus Rhythm, NORMAL AXIS, NORMAL INTERVALS - CT Exams Head CT Interpretation: Tele-radiologist Report (Nonacute senile brain) Ordered Tests: Active Orders 24 hr Category Date Time Status Bedrest ROUTINE Activity 05/15/21 18:38 Active Code Status Order ROUTINE Care 05/15/21 18:38 Active IV Care Q6H Care 05/15/21 18:38 Active Neuro Checks Q4H Care 05/15/21 18:[address] in Observation ROUTINE Care 05/15/21 18:38 Active Telemetry q6h Care 05/15/21 18:38 Active NPO Diet 05/15/21 18:38 Active HEAD WITHOUT CONTRAST [CT] Stat Exams 05/15/21 16:42 Taken CBC W DIFF AM.LAB Lab 05/16/21 04:00 Ordered CBC W DIFF Stat Lab 05/15/21 14:01 Completed CMP AM.LAB Lab 05/16/21 04:00 Ordered CMP Stat Lab 05/15/21 14:01 Completed Pulse Oximetry .spot check RT 05/15/21 18:38 Active Transfer Order Routine Transfer 05/15/21 Completed Medication Summary Generic Name Dose Route Start Last Admin Trade Name Freq PRN Reason Stop Dose Admin Dextrose/Sodium Chloride 1,000 mls @ 75 mls/hr 05/15/21 17:00 05/15/21 16:47 Dextrose 5%-1/4ns Iv Soln. 1000 Ml IV 06/14/21 16:59 75 mls/hr .[id number] JAH Administration Morphine Sulfate 2 mg 05/15/21 18:38 Morphine Sulfate 2 Mg/Ml Inj IV 05/20/21 18:37 Q4H PRN PRN PAIN Ondansetron HCl 4 mg 05/15/21 18:38 Ondansetron Hcl 4 Mg/2 Ml Vial IV 06/14/21 18:37 Q6H PRN PRN NAUSEA/VOMITING Lab/Rad Data: Laboratory Result Diagrams 05/15/21 14:01 05/15/21 14:01 Laboratory Results 05/15/21 05/15/21 05/15/21 Range/Units 17:02 14:01 14:01 WBC 8.4 (4.0-10.5) K/mm3 RBC 5.00 (4.1-5.6) M/mm3 Hgb 16.0 (12.5-18.0) gm/dl Hct 51.4 H (42-50) % MCV 102.8 H (78-100) fl MCH 32.0 (26-32) pg MCHC 31.1 L (32-36) g/dl RDW 13.5 (11.5-14.0) % Plt Count 206 (150-450) K/mm3 MPV 10.5 (7.5-11.0) fl Gran % 66.9 H (36.0-66.0) % Eos # (Auto) 0.03 (0-0.5) Absolute Lymphs (auto) 2.15 (1.0-4.6) Absolute Monos (auto) 0.60 (0.0-1.3) Lymphocytes % 25.5 (24.0-44.0) % Monocytes % 7.1 (0.0-12.0) % Eosinophils % 0.4 (0.00-5.0) % Basophils % 0.1 (0.0-0.4) % Absolute Granulocytes 5.63 (1.4-6.9) Basophils # 0.01 (0-0.4) Sodium 160 H* (137-145) mmol/L Potassium 4.6 (3.5-5.1) mmol/L Chloride 123 H (98-107) mmol/L Carbon Dioxide 28 (22-30) mmol/L Anion Gap 15.3 H (5-15) MEQ/L BUN 87 H (9-20) mg/dL Creatinine 1.27 H (0.66-1.25) mg/dL Estimated GFR > 60.0 ML/MIN Glucose 109 H (74-106) mg/dL Calcium 10.1 (8.4-10.2) mg/dL Total Bilirubin 0.70 (0.2-1.3) mg/dL AST 50 (17-59) U/L ALT 55 H (0-50) U/L Alkaline Phosphatase 155 H (38-126) U/L Serum Total Protein 8.3 H (6.3-8.2) g/dL Albumin 4.7 (3.5-5.0) g/dL Influenza Type A Ag NEGATIVE (NEGATIVE) Influenza Type B Ag NEGATIVE (NEGATIVE) RSV (PCR) NEGATIVE (Negative) SARS-CoV-2 (PCR) NEGATIVE (NEGATIVE) - Progress Progress: improved Progress Note: Case discussed with patient's mounted police officer Dr. Christianson who advises D5W at 75 an hour. Case discussed with Dr. Jane accepts admission to observation. Covid test pending. Family reports that patient is a DNR/DNI 05/15/21 16:40 Patient is Covid negative 05/15/21 18:31 Discussed with .: Roxy Will see patient in: hospital (observation) Counseled pt/family regarding: lab results, diagnosis, rad results - Departure Departure Disposition: Observation Clinical Impression: Hypernatremia, Transaminitis, Hyperchloremia, Acute renal injury, Dehydration, Altered mental status Condition: Stable Critical Care Time: No
[2021-05-15 14:19] LABS: ALBUMIN 4.7 g/dL (3.5-5.0); ALKALINE PHOSPHATASE 155 U/L (38-126); ANION GAP 15.3 MEQ/L (5-15); BLOOD UREA NITROGEN 87 mg/dL (9-20); CHLORIDE 123 mmol/L (98-107); Calcium 10.1 mg/dL (8.4-10.2); Carbon Dioxide 28 mmol/L (22-30); Creatinine 1 1.27 mg/dL (0.66-1.25); EST GLOMERULAR FILTRATION RATE > 60.0 ML/MIN; Glucose 109 mg/dL (74-106); Potassium 4.6 mmol/L (3.5-5.1); SGOT/AST 50 U/L (17-59); SGPT/ALT 55 U/L (0-50); Total Protein 8.3 g/dL (6.3-8.2)
[2021-05-15 14:31] LABS: SODIUM 160 mmol/L (137-145)
[2021-05-15] MEDS: Dextrose 5%-1/4NS IV Soln. 1000 ML 1,000 ML IV SCH (16:47)
[2021-05-15 17:54] LABS: INFLUENZA A NEGATIVE (NEGATIVE); INFLUENZA B NEGATIVE (NEGATIVE); RESPIRATORY SYNCTIAL VIRUS NEGATIVE (Negative); SARS-CoV-2 Xpert Express NEGATIVE (NEGATIVE)
[2021-05-15] MEDS ORDERED: MORPHINE SULFATE 2 MG INJ IV PRN (18:38)
[2021-05-15] MEDS ORDERED: Zofran 4 MG/2 ML VIAL IV PRN (18:38)
[2021-05-15] MEDS: LIORESAL 10 MG PO SCH (22:20)
[2021-05-15] MEDS: Lopressor 25MG Tab PO SCH (22:21)
[2021-05-15] MEDS: Miralax Powder 17GM PACKET PO SCH (22:29)
[2021-05-16] MEDS: Dextrose 5%-1/4NS IV Soln. 1000 ML 1,000 ML IV SCH ×2 (05:24→17:35)
[2021-05-16] MEDS: Cozaar 50 MG PO SCH (07:59)
[2021-05-16] MEDS: CLARITIN 10 MG PO SCH (07:59)
[2021-05-16] MEDS: THERAGRAN MULTIVITAMIN PO SCH (07:59)
[2021-05-16] MEDS ORDERED: NON-FORMULARY ITEM PO SCH ×3 (08:00→22:41)
[2021-05-16] MEDS ORDERED: LACOSAMIDE PO SCH (08:00)
[2021-05-16] MEDS ORDERED: VENTOLIN COMMON CANISTER IH SCH (08:00)
[2021-05-16] MEDS ORDERED: Ventolin Hfa MDI IH SCH (08:00)
[2021-05-16] MEDS ORDERED: NON-FORMULARY ITEM (Multivitamin [Multivitamins] 1 EACH Capsule) PO SCH (08:00)
[2021-05-16] MEDS ORDERED: BRIVARACETAM 100 MG PO SCH (08:00)
[2021-05-16] MEDS: PATIENT OWN MEDICATION PO SCH ×8 (08:00→18:58)
[2021-05-16] MEDS ORDERED: ESLICARBAZEPINE ACETATE 400 MG PO SCH (08:00)
[2021-05-16] MEDS ORDERED: ESLICARBAZEPINE ACETATE 800 MG PO SCH (08:00)
[2021-05-16] MEDS: Flonase NASAL NS SCH (08:03)
[2021-05-16] MEDS: Lopressor 25MG Tab PO SCH (08:05)
[2021-05-16] MEDS: LIORESAL 10 MG PO SCH ×2 (08:06→18:57)
--- NOTE | 2021-05-16 08:33 | XRAY ---
Indication: Altered mental status. Nonverbal. Multiple contiguous axial images obtained through the head without contrast. Comparison: June 16, 2014. Again age-appropriate global atrophy with progressive worsening moderate/advanced periventricular degenerative micro-ischemia bilaterally. No acute intracranial hemorrhage, abnormal extra-axial fluid collection, or mass effect. Fourth ventricle is midline. Bony calvarium intact. Visualized paranasal sinuses and mastoid air cells are clear. Impression: Nonacute senile brain.
--- NOTE | 2021-05-16 09:03 | PCM.HP ---
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 he was very confused and not conversant like normal on admission but is much better today, answers questions and is oriented, caregiver states he is much better today. - Review of Systems Constitutional: No Fever, No Chills Respiratory: No Cough, No Short Of Breath Cardiac: No Chest Pain, No Edema, No Syncope Abdominal/Gastrointestinal: No Abdominal Pain, No Nausea, No Vomiting, No Diarrhea Skin: No Rash Neurological: Dizziness All Other Systems: Reviewed and Negative Medications & Allergies Home Medications: Home Medication List Multivitamin [Multivitamins] 1 each PO 0800 06/16/14 [History Confirmed 05/15/21] Loratadine 10 mg [Claritin 10 mg] 10 mg PO 0800 06/03/16 [History Confirmed 05/15/21] Brivaracetam [Briviact] 100 mg PO 0800,1800 05/30/18 [History Confirmed 05/15/21] Lacosamide [Vimpat] 200 mg PO 0800,1800 10/06/18 [History Confirmed 05/15/21] Baclofen 40 mg PO 0800,1800 09/21/19 [History Confirmed 05/15/21] Alendronate Sodium 70 mg [Fosamax 70 MG] 70 mg PO Q7D@0600 09/22/19 [History Confirmed 05/15/21] Metoprolol Tartrate 12.5 mg PO 0800,1800 10/07/19 [History Confirmed 05/15/21] Eslicarbazepine Acetate [Aptiom] 200 mg PO 0800,1800 12/26/20 [History Confirmed 05/15/21] Eslicarbazepine Acetate [Aptiom] 800 mg PO 0800,1800 12/26/20 [History Confirmed 05/15/21] Fluticasone Propionate [Flonase NASAL] 2 sprays NS 0800 12/26/20 [History Confirmed 05/15/21] Losartan Potassium 50 mg [Cozaar 50 MG] 50 mg PO 0800 12/26/20 [History Confirmed 05/15/21] Polyethylene Glycol 3350 17 gm [Miralax Powder 17GM PACKET] 17 gm PO 1800 12/26/20 [History Confirmed 05/15/21] Albuterol 8 gm Mdi Hfa [Ventolin Hfa MDI] 2 puff IH 0800,1800 05/15/21 [History Confirmed 05/15/21] Allergies/Adverse Reactions: Allergies Allergy/AdvReac Type Severity Reaction Status Date / Time adhesive tape Allergy Verified 05/15/21 18:43 - Past Medical History Past Medical History: Yes Neurological History: Seizures ENT History: No Pertinent History Cardiac History: No Pertinent History, Hypertension Respiratory History: No Pertinent History Endocrine Medical History: No Pertinent History Musculoskelatal History: No Pertinent History GI Medical History: No Pertinent History History: No Pertinent History Pyscho-Social History: Other Male Reproductive Disorders: No Pertinent History Comment: PT. 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 double hernia repair, multiple reconstruction surgerys to hand and arm/jaw - Social History Smoking Status: Never smoker Exposure to second hand smoke: No Alcohol: None Drug Use: none - Physical Exam Vital Signs: Vital Signs - 24 hr Temp Pulse Resp BP Pulse Ox 05/16/21 08:00 16 05/16/21 07:36 92 L 05/16/21 07:10 98.8 F 97 H 16 141/79 99 05/16/21 04:00 20 05/16/21 03:21 95.8 F 89 20 102/57 92 L 05/16/21 00:04 95.8 F 89 20 102/57 92 L 05/15/21 20:09 96.1 F 99 H 20 161/92 100 05/15/21 20:00 96.1 F 99 H 20 161/92 100 05/15/21 19:01 92 L 05/15/21 18:38 99 05/15/21 18:18 97 H 19 125/80 95 05/15/21 16:39 89 22 05/15/21 14:31 97.6 F 102 H 20 97 05/15/21 12:45 97.6 F 100 H 20 111/78 92 L General Appearance: no apparent distress, alert Neurologic Exam: alert, cooperative Respiratory Exam: normal breath sounds, lungs clear, No respiratory distress Cardiovascular Exam: regular rate/rhythm, normal heart sounds, normal peripheral pulses Gastrointestinal/Abdomen Exam: soft, normal bowel sounds, No tenderness, No mass Extremity Exam: normal inspection, normal range of motion, pelvis stable Skin Exam: normal color, warm, dry, No rash Wound Assessment: Skin/Wound Assessment Wound/Incision Assessment Start: 05/15/21 20:30 Text: Status: Active Freq: Q6H Protocol: Document 05/16/21 08:00 MJ (Rec: 05/16/21 08:54 MJ [id number]) Wound Photo Photo Taken No Results - Labs Lab/Micro Results: Lab Results-Last 24 Hours 05/15/21 05/15/21 05/15/21 Range/Units 14:01 14:01 17:02 WBC 8.4 (4.0-10.5) K/mm3 RBC 5.00 (4.1-5.6) M/mm3 Hgb 16.0 (12.5-18.0) gm/dl Hct 51.4 H (42-50) % MCV 102.8 H (78-100) fl MCH 32.0 (26-32) pg MCHC 31.1 L (32-36) g/dl RDW 13.5 (11.5-14.0) % Plt Count 206 (150-450) K/mm3 MPV 10.5 (7.5-11.0) fl Gran % 66.9 H (36.0-66.0) % Eos # (Auto) 0.03 (0-0.5) Absolute Lymphs (auto) 2.15 (1.0-4.6) Absolute Monos (auto) 0.60 (0.0-1.3) Lymphocytes % 25.5 (24.0-44.0) % Monocytes % 7.1 (0.0-12.0) % Eosinophils % 0.4 (0.00-5.0) % Basophils % 0.1 (0.0-0.4) % Absolute Granulocytes 5.63 (1.4-6.9) Basophils # 0.01 (0-0.4) Sodium 160 H* (137-145) mmol/L Potassium 4.6 (3.5-5.1) mmol/L Chloride 123 H (98-107) mmol/L Carbon Dioxide 28 (22-30) mmol/L Anion Gap 15.3 H (5-15) MEQ/L BUN 87 H (9-20) mg/dL Creatinine 1.27 H (0.66-1.25) mg/dL Estimated GFR > 60.0 ML/MIN Glucose 109 H (74-106) mg/dL Calcium 10.1 (8.4-10.2) mg/dL Total Bilirubin 0.70 (0.2-1.3) mg/dL AST 50 (17-59) U/L ALT 55 H (0-50) U/L Alkaline Phosphatase 155 H (38-126) U/L Serum Total Protein 8.3 H (6.3-8.2) g/dL Albumin 4.7 (3.5-5.0) g/dL Influenza Type A Ag NEGATIVE (NEGATIVE) Influenza Type B Ag NEGATIVE (NEGATIVE) RSV (PCR) NEGATIVE (Negative) SARS-CoV-2 (PCR) NEGATIVE (NEGATIVE) - Radiology Impressions Radiology Exams & Impressions: Radiology Procedures Category Date Time Status HEAD WITHOUT CONTRAST [CT] Stat Exams 05/15/21 16:42 Completed - Other Procedures and Tests Respiratory Therapy 05/15/21 21:00 BiPap/CPAP ROUTINE Assessment/Plan (1) Hypernatremia Current Visit: Yes Status: Acute Assessment & Plan: repeat labs ordered, not ran for some reason Code(s): E87.0 - HYPEROSMOLALITY AND HYPERNATREMIA (2) Acute renal injury Current Visit: Yes Status: Acute Code(s): N17.9 - ACUTE KIDNEY FAILURE, UNSPECIFIED (3) Altered mental status Current Visit: Yes Status: Acute Code(s): R41.82 - ALTERED MENTAL STATUS, UNSPECIFIED
[2021-05-16 09:29] LABS: Absolute Neutrophil Ct (ANC) 4.73 (1.4-6.9); Basophil (Absolute #) 0.01 (0-0.4); Eosinophil % 1.7 % (0.00-5.0); Eosinophil (Absolute #) 0.13 (0-0.5); Hematocrit 46.5 % (42-50); Hemoglobin 14.3 gm/dl (12.5-18.0); Lymphocytes % 29.7 % (24.0-44.0); Mean Cell Volume 103.3 fl (78-100); Mean Corpuscular Hemoglobin 31.8 pg (26-32); Mean Corpuscular Hgb Concent. 30.8 g/dl (32-36); Mean Platelet Volume 10.6 fl (7.5-11.0); Monocyte (Absolute #) 0.58 (0.0-1.3); Monocytes % 7.5 % (0.0-12.0); Platelet Count 175 K/mm3 (150-450); Red Cell Distribution Width 13.3 % (11.5-14.0); White Blood Count 7.8 K/mm3 (4.0-10.5)
[2021-05-16 09:38] LABS: ALKALINE PHOSPHATASE 137 U/L (38-126); ANION GAP 11.8 MEQ/L (5-15); BLOOD UREA NITROGEN 74 mg/dL (9-20); CHLORIDE 119 mmol/L (98-107); Calcium 8.7 mg/dL (8.4-10.2); Carbon Dioxide 29 mmol/L (22-30); Creatinine 1 1.18 mg/dL (0.66-1.25); EST GLOMERULAR FILTRATION RATE > 60.0 ML/MIN; Glucose 116 mg/dL (74-106); Potassium 3.9 mmol/L (3.5-5.1); SGOT/AST 34 U/L (17-59); SGPT/ALT 43 U/L (0-50)
[2021-05-16 10:21] LABS: SODIUM 155 mmol/L (137-145)
[2021-05-16] MEDS ORDERED: Sodium Chloride 0.9% 500 ML 500 ML IV ONE (11:06)
[2021-05-16] MEDS: Miralax Powder 17GM PACKET PO SCH (18:57)
[2021-05-16] MEDS ORDERED: Sodium Chloride 0.9% 250 ML 250 ML IV SCH (19:00)
[2021-05-17] MEDS: Dextrose 5%-1/4NS IV Soln. 1000 ML 1,000 ML IV SCH ×2 (04:59→15:00)
[2021-05-17 05:53] LABS: ANION GAP 11.9 MEQ/L (5-15); Creatinine 1 1.32 mg/dL (0.66-1.25); EST GLOMERULAR FILTRATION RATE 58.8 ML/MIN; Potassium 3.7 mmol/L (3.5-5.1)
--- NOTE | 2021-05-17 06:25 | PCM.NOTE ---
Date and Time: 05/17/21623 Subjective Assessment: patient is more alert and conversant this morning, flirted with the nurse and asked for a drink this morning which is improvement. Objective Exam General Appearance: no apparent distress Neurologic Exam: alert Wound Assessment: Skin/Wound Assessment Wound/Incision Assessment Start: 05/15/21 20:30 Text: Status: Active Freq: Q6H Protocol: Document 05/17/21 01:41 RG (Rec: 05/17/21 01:45 RG [id number]) Wound Photo Photo Taken No Respiratory Exam: normal breath sounds Cardiovascular Exam: regular rate/rhythm, normal heart sounds Gastrointestinal/Abdomen Exam: soft, No tenderness, No mass Extremity Exam: other (contractures present, spasticity) OBJECTIVE DATA Vital Signs: Vital Signs - 24 hr Temp Pulse Resp BP Pulse Ox 05/17/21 04:00 98.6 F 85 12 136/67 96 05/17/21 00:00 100.7 F 99 H 25 H 111/55 92 L 05/16/21 20:00 28 H 05/16/21 19:42 97.1 F 101 H 28 H 68/40 98 05/16/21 19:00 90 16 95 05/16/21 16:00 97.3 F 92 H 16 124/74 95 05/16/21 12:30 81 82/51 05/16/21 12:00 16 05/16/21 11:27 97.9 F 75 16 56/32 91 L 05/16/21 10:32 84 20 95 05/16/21 08:00 16 05/16/21 07:36 92 L 05/16/21 07:10 98.8 F 97 H 16 141/79 99 Pain Assessment - Last Documented Pain Intensity 0 Intake and Output: Intake & Output 05/14/21 05/15/21 05/16/21 05/17/21 11:59 11:59 11:59 11:59 Intake Total 845 2892 Output Total 550 925 Balance 295 1967 Weight 92.5 kg Lab Results: Lab Results-Last 24 Hours 05/16/21 05/16/21 05/17/21 Range/Units 09:23 09:23 04:30 WBC 7.8 (4.0-10.5) K/mm3 RBC 4.50 (4.1-5.6) M/mm3 Hgb 14.3 (12.5-18.0) gm/dl Hct 46.5 (42-50) % MCV 103.3 H (78-100) fl MCH 31.8 (26-32) pg MCHC 30.8 L (32-36) g/dl RDW 13.3 (11.5-14.0) % Plt Count 175 (150-450) K/mm3 MPV 10.6 (7.5-11.0) fl Gran % 61.0 (36.0-66.0) % Eos # (Auto) 0.13 (0-0.5) Absolute Lymphs (auto) 2.30 (1.0-4.6) Absolute Monos (auto) 0.58 (0.0-1.3) Lymphocytes % 29.7 (24.0-44.0) % Monocytes % 7.5 (0.0-12.0) % Eosinophils % 1.7 (0.00-5.0) % Basophils % 0.1 (0.0-0.4) % Absolute Granulocytes 4.73 (1.4-6.9) Basophils # 0.01 (0-0.4) Sodium 155 H* 151 H* (137-145) mmol/L Potassium 3.9 3.7 (3.5-5.1) mmol/L Chloride 119 H 117 H (98-107) mmol/L Carbon Dioxide 29 27 (22-30) mmol/L Anion Gap 11.8 11.9 (5-15) MEQ/L BUN 74 H 67 H (9-20) mg/dL Creatinine 1.18 1.32 H (0.66-1.25) mg/dL Estimated GFR > 60.0 58.8 ML/MIN Glucose 116 H 107 H (74-106) mg/dL Calcium 8.7 8.0 L (8.4-10.2) mg/dL Total Bilirubin 0.90 (0.2-1.3) mg/dL AST 34 (17-59) U/L ALT 43 (0-50) U/L Alkaline Phosphatase 137 H (38-126) U/L Serum Total Protein 7.0 (6.3-8.2) g/dL Albumin 4.0 (3.5-5.0) g/dL Radiology Exams: Radiology Procedures Category Date Time Status HEAD WITHOUT CONTRAST [CT] Stat Exams 05/15/21 16:42 Completed Assessment/Plan (1) Hypernatremia Current Visit: Yes Status: Acute Assessment & Plan: improving slowly, nephrology has been consulted. continue D5W Code(s): E87.0 - HYPEROSMOLALITY AND HYPERNATREMIA (2) Acute renal injury Current Visit: Yes Status: Acute Assessment & Plan: bun/cr stable, continue current management Code(s): N17.9 - ACUTE KIDNEY FAILURE, UNSPECIFIED (3) Altered mental status Current Visit: Yes Status: Acute Code(s): R41.82 - ALTERED MENTAL STATUS, UNSPECIFIED
--- NOTE | 2021-05-17 08:37 | XRAY ---
Indication: Altered mental status. Comparison: December 26, 2020. Portable chest remains clear. Heart remains enlarged. Bony thorax intact again with osteopenia, degenerative changes, old left rib fractures, mild scoliosis, and left vagal nerve stimulator/lead. No new/acute findings.
[2021-05-17] MEDS: Miralax Powder 17GM PACKET PO SCH (09:37)
[2021-05-17] MEDS: CLARITIN 10 MG PO SCH (09:38)
[2021-05-17] MEDS: PATIENT OWN MEDICATION PO SCH ×8 (09:38→17:10)
[2021-05-17] MEDS: THERAGRAN MULTIVITAMIN PO SCH (09:38)
[2021-05-17] MEDS: LIORESAL 10 MG PO SCH ×2 (09:39→17:10)
[2021-05-17] MEDS: Flonase NASAL NS SCH (09:40)
[2021-05-17] MEDS: Lopressor 25MG Tab PO SCH (09:58)
[2021-05-17] MEDS: Cozaar 50 MG PO SCH (14:21)
[2021-05-17] MEDS: Dextrose 5%/Water IV Soln. 1000 ML 1,000 ML IV SCH (18:09)
[2021-05-17] MEDS: DUONEB 0.5-3 MG/3 ml Neb IH SCH (19:02)
[2021-05-18] MEDS: DUONEB 0.5-3 MG/3 ml Neb IH SCH ×4 (01:05→19:27)
[2021-05-18] MEDS: Metamucil PACKET PO SCH ×2 (01:18→18:22)
[2021-05-18 06:08] LABS: Absolute Neutrophil Ct (ANC) 5.28 (1.4-6.9); Basophil (Absolute #) 0.01 (0-0.4); Eosinophil % 2.2 % (0.00-5.0); Eosinophil (Absolute #) 0.16 (0-0.5); Lymphocyte (Absolute #) 1.44 (1.0-4.6); Lymphocytes % 19.6 % (24.0-44.0); Mean Cell Volume 99.7 fl (78-100); Mean Corpuscular Hemoglobin 31.5 pg (26-32); Mean Corpuscular Hgb Concent. 31.6 g/dl (32-36); Mean Platelet Volume 10.6 fl (7.5-11.0); Monocyte (Absolute #) 0.44 (0.0-1.3); Neutrophil % 72.1 % (36.0-66.0); Platelet Count 126 K/mm3 (150-450); Red Blood Count 3.81 M/mm3 (4.1-5.6); Red Cell Distribution Width 12.6 % (11.5-14.0); White Blood Count 7.3 K/mm3 (4.0-10.5)
[2021-05-18 06:22] LABS: ANION GAP 9.6 MEQ/L (5-15); BLOOD UREA NITROGEN 33 mg/dL (9-20); CHLORIDE 108 mmol/L (98-107); Calcium 7.6 mg/dL (8.4-10.2); Carbon Dioxide 25 mmol/L (22-30); Creatinine 1 0.72 mg/dL (0.66-1.25); EST GLOMERULAR FILTRATION RATE > 60.0 ML/MIN; Glucose 112 mg/dL (74-106); Potassium 3.6 mmol/L (3.5-5.1); SODIUM 140 mmol/L (137-145)
[2021-05-18] MEDS ORDERED: DUONEB 0.5-3 MG/3 ml Neb IH ONE (07:18)
--- NOTE | 2021-05-18 07:41 | XRAY ---
Indication: New wheezing. Suspect aspiration. Comparison: Thicken earlier in the day. Portable chest less inflated with new subtle left infrahilar discoid atelectasis. Remaining lungs clear. Heart remains enlarged. Stable osteopenia, degenerative changes, old left rib fractures, scoliosis, and left vagal nerve stimulator/lead.
[2021-05-18] MEDS: Flonase NASAL NS SCH (07:45)
[2021-05-18] MEDS: PATIENT OWN MEDICATION PO SCH ×8 (07:47→18:17)
[2021-05-18] MEDS ORDERED: TYLENOL 325 MG ONE (08:07)
[2021-05-18] MEDS: LIORESAL 10 MG PO SCH ×2 (08:09→18:21)
[2021-05-18] MEDS: Dextrose 5%/Water IV Soln. 1000 ML 1,000 ML IV SCH (08:09)
[2021-05-18] MEDS: THERAGRAN MULTIVITAMIN PO SCH (08:10)
[2021-05-18] MEDS: CLARITIN 10 MG PO SCH (08:10)
[2021-05-18] MEDS: Cozaar 50 MG PO SCH (08:10)
[2021-05-18] MEDS ORDERED: TYLENOL 325 MG PO PRN (08:19)
--- NOTE | 2021-05-18 08:33 | PCM.NOTE ---
Date and Time: 05/18/21830 Subjective Assessment: last 24 hours events noted. - Review of Systems Constitutional: No Fever, No Chills Eyes: No Symptoms Ears, Nose, & Throat: No Symptoms Respiratory: Cough, Short Of Breath Cardiac: No Chest Pain, No Edema, No Syncope Abdominal/Gastrointestinal: No Abdominal Pain, No Nausea, No Vomiting, No Diarrhea Genitourinary Symptoms: No Dysuria Musculoskeletal: No Back Pain, No Neck Pain Skin: No Rash Neurological: No Dizziness, No Focal Weakness, No Sensory Changes Psychological: No Symptoms Endocrine: No Symptoms Hematologic/Lymphatic: No Symptoms Immunological/Allergic: No Symptoms Objective Exam General Appearance: no apparent distress, alert Neurologic Exam: alert, oriented x 3, cooperative, normal mood/affect, nml cerebellar function, sensation nml, No motor deficits Skin Exam: normal color, warm, dry Wound Assessment: Skin/Wound Assessment Wound/Incision Assessment Start: 05/15/21 20:30 Text: Status: Active Freq: Q6H Protocol: Document 05/18/21 02:00 TK (Rec: 05/18/21 02:23 TK [id number]) Wound Photo Photo Taken No Eye Exam: PERRL, EOMI, eyes nml inspection Ears, Nose, Throat Exam: normal ENT inspection, pharynx normal, moist mucous membranes Neck Exam: normal inspection, non-tender, supple, full range of motion Respiratory Exam: diminished breath sounds, crackles/rales, rhonchi, No respiratory distress Cardiovascular Exam: regular rate/rhythm, normal heart sounds Gastrointestinal/Abdomen Exam: soft, No tenderness, No mass Extremity Exam: normal inspection, normal range of motion Back Exam: normal inspection, normal range of motion, No CVA tenderness, No vertebral tenderness Male Genitalia Exam: deferred Rectal Exam: deferred OBJECTIVE DATA Vital Signs: Vital Signs - 24 hr Temp Pulse Resp BP Pulse Ox 05/18/21 08:00 97.3 F 88 17 125/72 94 L 05/18/21 07:36 87 20 92 L 05/18/21 04:00 100.5 F 91 H 20 145/82 95 05/18/21 01:14 85 22 93 L 05/18/21 00:00 16 05/17/21 23:46 97.3 F 92 H 24 132/64 91 L 05/17/21 20:00 18 05/17/21 19:56 99.1 F 103 H 28 H 121/71 95 05/17/21 19:24 104 H 28 H 92 L 05/17/21 16:00 97.6 F 92 H 21 130/63 94 L 05/17/21 12:00 97.6 F 103 H 24 121/62 94 L Pain Assessment - Last Documented Pain Intensity 0 Intake and Output: Intake & Output 05/15/21 05/16/21 05/17/21 05/18/21 11:59 11:59 11:59 11:59 Intake Total 845 3372 3586 Output Total 915 395 3087 Balance 295 0067 1771 Weight 92.5 kg Lab Results: Lab Results-Last 24 Hours 05/18/21 05/18/21 Range/Units 05:35 05:35 WBC 7.3 (4.0-10.5) K/mm3 RBC 3.81 L (4.1-5.6) M/mm3 Hgb 12.0 L (12.5-18.0) gm/dl Hct 38.0 L (42-50) % MCV 99.7 (78-100) fl MCH 31.5 (26-32) pg MCHC 31.6 L (32-36) g/dl RDW 12.6 (11.5-14.0) % Plt Count 126 L (150-450) K/mm3 MPV 10.6 (7.5-11.0) fl Gran % 72.1 H (36.0-66.0) % Eos # (Auto) 0.16 (0-0.5) Absolute Lymphs (auto) 1.44 (1.0-4.6) Absolute Monos (auto) 0.44 (0.0-1.3) Lymphocytes % 19.6 L (24.0-44.0) % Monocytes % 6.0 (0.0-12.0) % Eosinophils % 2.2 (0.00-5.0) % Basophils % 0.1 (0.0-0.4) % Absolute Granulocytes 5.28 (1.4-6.9) Basophils # 0.01 (0-0.4) Sodium 140 D (137-145) mmol/L Potassium 3.6 (3.5-5.1) mmol/L Chloride 108 H (98-107) mmol/L Carbon Dioxide 25 (22-30) mmol/L Anion Gap 9.6 (5-15) MEQ/L BUN 33 H (9-20) mg/dL Creatinine 0.72 (0.66-1.25) mg/dL Estimated GFR > 60.0 ML/MIN Glucose 112 H (74-106) mg/dL Calcium 7.6 L (8.4-10.2) mg/dL Radiology Exams: Radiology Procedures Category Date Time Status CHEST 1 VIEW (PORTABLE) Routine Exams 05/17/21 06:25 Completed CHEST 1 VIEW (PORTABLE) Stat Exams 05/17/21 19:14 Completed Multi-Disciplinary Progress Notes: Multi-Disciplinary Progress Notes 05/17/21 09:49 Case Management Note by Jessenia Miranda REVIEWED CHART AND S/W CAREGIVER- NO NEW NEEDS IDENTIFIED FOR DC AT THIS TIME. PATIENT HAS 24HR CARE ALREADY SET UP AT HOME AND HAS ALL THE EQUIPMENT NEEDED TO CARE FOR PATIENT Initialized on 05/17/21 09:49 - END OF NOTE Assessment/Plan (1) Altered mental status Current Visit: Yes Status: Acute Qualifiers: Altered mental status type: unspecified Qualified Code(s): R41.82 - Altered mental status, unspecified Code(s): R41.82 - ALTERED MENTAL STATUS, UNSPECIFIED (2) Hypernatremia Current Visit: Yes Status: Resolved Code(s): E87.0 - HYPEROSMOLALITY AND HYPERNATREMIA (3) Aspiration pneumonia due to food (regurgitated) Current Visit: Yes Status: Acute Qualifiers: Laterality: right Lung location: lower lobe of lung Qualified Code(s): J69.0 - Pneumonitis due to inhalation of food and vomit Assessment & Plan: Chief Complaint Diagnosis Hypernatremia, AMS, Acute renal Injury Allergies Allergy/AdvReac Type Severity Reaction Status Date / Time adhesive tape Allergy Verified 05/15/21 18:43 Vital Signs (Last 24 hours) Temp Pulse Resp BP Pulse Ox 05/18/21 08:00 97.3 F 88 17 125/72 94 L 05/18/21 07:36 87 20 92 L 05/18/21 04:00 100.5 F 91 H 20 145/82 95 05/18/21 01:14 85 22 93 L 05/18/21 00:00 16 05/17/21 23:46 97.3 F 92 H 24 132/64 91 L 05/17/21 20:00 18 05/17/21 19:56 99.1 F 103 H 28 H 121/71 95 05/17/21 19:24 104 H 28 H 92 L 05/17/21 16:00 97.6 F 92 H 21 130/63 94 L 05/17/21 12:00 97.6 F 103 H 24 121/62 94 L Home Medications Medication Instructions Recorded Confirmed Last Taken Type Albuterol 8 gm Mdi Hfa 2 puff IH 0800,1800 05/15/21 05/15/21 05/15/21 History [Ventolin Hfa MDI] Current Medications Generic Name Dose Route Start Last Admin Trade Name Freq PRN Reason Stop Dose Admin Acetaminophen 650 mg 05/18/21 08:19 Acetaminophen 325 Mg Tablet PO 06/17/21 08:18 Q4H PRN PRN MILD PAIN Albuterol/Ipratropium 3 ml 05/17/21 19:00 05/18/21 07:35 Ipratropium/Albuterol Sulfate 3 Ml Ampul.Neb IH 06/16/21 18:59 3 ml Q6HRT JAH Administration Baclofen 40 mg 05/15/21 22:00 05/18/21 08:09 Baclofen 10 Mg Tablet PO 06/14/21 21:59 40 mg 0800,1800 JAH Administration Fluticasone Propionate 0 gm 05/16/21 08:00 05/18/21 07:45 Fluticasone Propionate 16 Gm Bottle Nasal [place] NS 06/15/21 07:59 16 gm 0800 JAH Administration Dextrose 1,000 mls @ 75 mls/hr 05/17/21 18:00 05/18/21 08:09 Dextrose 5%/Water Iv Soln. 1000 Ml IV 06/16/21 17:59 75 mls/hr .[id number] JAH Administration Loratadine 10 mg 05/16/21 08:00 05/18/21 08:10 Loratadine 10 Mg Tablet PO 06/15/21 07:59 10 mg 0800 JAH Administration Losartan Potassium 50 mg 05/16/21 08:00 05/18/21 08:10 Losartan Potassium 50 Mg Tablet PO 06/15/21 07:59 50 mg 0800 JAH Administration Morphine Sulfate 2 mg 05/15/21 18:38 Morphine Sulfate 2 Mg/Ml Inj IV 05/20/21 18:37 Q4H PRN PRN PAIN Multivitamins Therapeutic 1 tab 05/16/21 08:00 05/18/21 08:10 Multivitamins,Therapeutic 1 Tab Tab PO 06/15/21 07:59 1 tab 0800 JAH Administration Ondansetron HCl 4 mg 05/15/21 18:38 Ondansetron Hcl 4 Mg/2 Ml Vial IV 06/14/21 18:37 Q6H PRN PRN NAUSEA/VOMITING Patient Own Med: 1 each 05/16/21 08:00 05/18/21 07:47 Vimpat 200 Mg PO 06/15/21 07:59 1 each 0800,1800 JAH Administration Patient Own Med : 0 each 05/16/21 08:00 05/18/21 07:48 Briviact 100 Mg PO 06/15/21 07:59 1 each 0800,1800 JAH Administration Patient Own Med: 0.5 each 05/16/21 08:00 05/18/21 07:48 Aptiom 400 Mg PO 06/15/21 07:59 0.5 each 0800,1800 JAH Administration Patient Own Med : 0 each 05/16/21 08:00 05/18/21 07:48 Aptiom 800 Mg PO 06/15/21 07:59 1 each 0800,1800 JAH Administration Polyethylene Glycol 17 gm 05/15/21 22:00 05/17/21 09:37 Polyethylene Glycol 3350 17 Gm Packet PO 06/14/21 21:59 17 gm 1800 JAH Administration Psyllium Hydrophilic Mucilloid 1 pkt 05/17/21 18:00 05/18/21 01:18 Psyllium 1 Pkt Packet PO 06/16/21 17:59 Not Given EVENING MEAL JAH Discontinued Medications Generic Name Dose Route Start Last Admin Trade Name Freq PRN Reason Stop Dose Admin Acetaminophen Confirm 05/18/21 08:07 Acetaminophen 325 Mg Tablet Administered 05/18/21 08:08 Dose 650 mg .ROUTE .STK-MED ONE Albuterol Sulfate 2 puff 05/16/21 08:00 05/16/21 18:30 Albuterol Common Canister Inhaler IH 06/15/21 07:59 Not Given 0800,1800 JAH Albuterol/Ipratropium Confirm 05/18/21 07:18 Ipratropium/Albuterol Sulfate 3 Ml Ampul.Neb Administered 05/18/21 07:19 Dose 3 ml IH .STK-MED ONE Dextrose/Sodium Chloride 1,000 mls @ 100 mls/hr 05/15/21 17:00 05/17/21 15:00 Dextrose 5%-1/4ns Iv Soln. 1000 Ml IV 06/14/21 16:59 100 mls/hr .Q10H JAH Administration Sodium Chloride 500 mls @ 500 mls/hr 05/16/21 11:06 05/16/21 11:14 Sodium Chloride 0.9% 500 Ml IV 05/16/21 12:05 500 mls/hr .Q1H ONE Administration Sodium Chloride 250 mls @ 250 mls/hr 05/16/21 19:00 05/16/21 18:55 Sodium Chloride 0.9% 250 Ml IV 05/16/21 19:59 250 mls/hr .Q1H JAH Administration Metoprolol Tartrate 12.5 mg 05/15/21 22:00 05/17/21 09:58 Metoprolol Tartrate 25 Mg Tab PO 06/14/21 21:59 Not Given 0800,1800 JAH Non-Formulary Medication 2 each 05/16/21 22:41 05/15/21 22:58 Non-Formulary Drug 1 Each Each PO 06/15/21 22:40 2 each 0800,1800 JAH Administration Non-Formulary Medication 1 each 05/16/21 08:00 05/15/21 22:58 Non-Formulary Drug 1 Each Each PO 06/15/21 07:59 1 each 0800,1800 JAH Administration Non-Formulary Medication 1.5 each 05/16/21 08:00 05/15/21 22:58 Non-Formulary Drug 1 Each Each PO 06/15/21 07:59 1.5 each 0800,1800 JAH Administration Intake & Output (Last 24 hours) 05/15/21 05/16/21 05/17/21 05/18/21 11:59 11:59 11:59 11:59 Intake Total 845 3372 3586 Output Total 488 450 7292 Balance 295 5587 1771 Weight 92.5 kg Laboratory Results (Last 24 hours) 05/18/21 05/18/21 05:35 05:35 WBC 7.3 RBC 3.81 L Hgb 12.0 L Hct 38.0 L MCV 99.7 MCH 31.5 MCHC 31.6 L RDW 12.6 Plt Count 126 L MPV 10.6 Gran % 72.1 H Eos # (Auto) 0.16 Absolute Lymphs (auto) 1.44 Absolute Monos (auto) 0.44 Lymphocytes % 19.6 L Monocytes % 6.0 Eosinophils % 2.2 Basophils % 0.1 Absolute Granulocytes 5.28 Basophils # 0.01 Sodium 140 D Potassium 3.6 Chloride 108 H Carbon Dioxide 25 Anion Gap 9.6 BUN 33 H Creatinine 0.72 Estimated GFR > 60.0 Glucose 112 H Calcium 7.6 L Orders (Last 24 hours) Category Date Time Status CHEST 1 VIEW (PORTABLE) Stat Exams 05/17/21 19:14 Completed BMP Routine Lab 05/17/21 18:40 Completed CBC W DIFF Routine Lab 05/17/21 18:40 Completed Acetaminophen 325 mg [Tylenol 325 mg] Med 05/18/21 08:07 Discontinued 650 mg .ROUTE .STK-MED ONE Acetaminophen 325 mg [Tylenol 325 mg] Med 05/18/21 08:19 Ordered 650 mg PO Q4H PRN PRN Albuterol/Ipratropium 3ml Neb* [DUONEB 0.5-3 MG/3 ml Med 05/18/21 07:18 Discontinued Neb] 3 ml IH .STK-MED ONE Albuterol/Ipratropium 3ml Neb* [DUONEB 0.5-3 MG/3 ml Med 05/17/21 19:00 Active Neb] 3 ml IH Q6HRT D5w 1000 ml [Dextrose 5%/Water IV Soln. 1000 ML] 1,000 Med 05/17/21 18:00 Active ml IV 75 mls/hr Psyllium Packet [Metamucil PACKET] Med 05/17/21 18:00 Active 1 pkt PO EVENING MEAL Respiratory Therapy Assessment DAILY RT 05/17/21 19:11 Active Patient Care Notes (Last 24 hours) 05/17/21 18:40 Nursing Note by Rosalba Peterson While at patient bedside, patient was eating cake and suddenly began coughing. Upon auscultation to lungs, new wheezes and crackles were heard anteriorly throughout . Oxygen sat is 93% on room air. Called Dr Chapman, new orders ent ered , will continue to monitor Initialized on 05/17/21 18:40 - END OF NOTE 05/17/21 17:50 Nursing Note by Rosalba Peterson Spoke with Dr. Mckinney. Order to change fluids to D5W @ 75. Also states that if his sodium level returns to normal, patient can be discharged home and see him in the office on Thursday05/20/21 Initialized on 05/17/21 17:50 - END OF NOTE 05/17/21 16:55 Nursing Note by Rosalba Peterson Called Dr. Mckinney's office to follow up. Nurse said he is on another call right now and will call us right after that Initialized on 05/17/21 16:55 - END OF NOTE 05/17/21 15:55 Nursing Note by Rosalba Peterson Called Dr Mckinney's office to request to speak with him, or his partner so that patient can have a consultation with a senior analytical chemist. Lizbet, at the office stated that she just spoke with Dr. Mckinney and that he was "getting ready to call" us. Also says that if we do not hear from Dr. Mckinney by 1645, to call the office back and ask for Lizbet. Initialized on 05/17/21 15:55 - END OF NOTE 05/17/21 10:41 Nursing Note by Shaylee Angeles Call made by this nurse to nephrology office. Notified Shaylee-nephrology staff- that this nurse needed clarification on patient's medications due to within normal BP at this time, but issues on 05/16/21 with very low BP after medications. This nurse also provided patient's AM lab results. Staff stated she would page Dr. Mckinney and notify him of concerns as well as this morning's lab values. Call made approximately around 0840, no call received back at this time. Initialized on 05/17/21 10:41 - END OF NOTE 05/17/21 09:49 Case Management Note by Jessenia Miranda REVIEWED CHART AND S/W CAREGIVER- NO NEW NEEDS IDENTIFIED FOR DC AT THIS TIME. PATIENT HAS 24HR CARE ALREADY SET UP AT HOME AND HAS ALL THE EQUIPMENT NEEDED TO CARE FOR PATIENT Initialized on 05/17/21 09:49 - END OF NOTE Code(s): J69.0 - PNEUMONITIS DUE TO INHALATION OF FOOD AND VOMIT
[2021-05-18] MEDS ORDERED: MILK OF MAGNESIA 30 ML PO PRN (10:59)
[2021-05-18 16:12] VITALS: BP 117/69; PULSE 96; O2SAT 93
[2021-05-18] MEDS: Miralax Powder 17GM PACKET PO SCH (18:22)
--- NOTE | 2021-05-19 20:22 | PCM.DS ---
Discharge Summary Date of Admission: 05/16/21 08:55 Admitting Physician: SUSANA BALDWIN Consults: Consults on Case 05/16/21 11:36 Consult Nephrology ROUTINE Primary Care Provider: SUSANA BALDWIN Allergies Allergies adhesive tape Allergy (Verified 05/15/21 18:43) Hospital Summary - Hospital Course Hospital Course: Chief Complaint Diagnosis Hypernatremia, AMS, Acute renal Injury Allergies Allergy/AdvReac Type Severity Reaction Status Date / Time adhesive tape Allergy Verified 05/15/21 18:43 Home Medications Medication Instructions Recorded Confirmed Last Taken Type Albuterol 8 gm Mdi Hfa 2 puff IH Q4HPRN PRN 05/15/21 05/18/21 05/15/21 History [Ventolin Hfa MDI] Current Medications Discontinued Medications Generic Name Dose Route Start Last Admin Trade Name Freq PRN Reason Stop Dose Admin Acetaminophen Confirm 05/18/21 08:07 Acetaminophen 325 Mg Tablet Administered 05/18/21 08:08 Dose 650 mg .ROUTE .STK-MED ONE Acetaminophen 650 mg 05/18/21 08:19 05/18/21 08:37 Acetaminophen 325 Mg Tablet PO 06/17/21 08:18 650 mg Q4H PRN PRN Administration MILD PAIN Albuterol Sulfate 2 puff 05/16/21 08:00 05/16/21 18:30 Albuterol Common Canister Inhaler IH 06/15/21 07:59 Not Given 0800,1800 JAH Albuterol/Ipratropium 3 ml 05/17/21 19:00 05/18/21 19:27 Ipratropium/Albuterol Sulfate 3 Ml Ampul.Neb IH 06/16/21 18:59 Not Given Q6HRT JAH Albuterol/Ipratropium Confirm 05/18/21 07:18 Ipratropium/Albuterol Sulfate 3 Ml Ampul.Neb Administered 05/18/21 07:19 Dose 3 ml IH .STK-MED ONE Baclofen 40 mg 05/15/21 22:00 05/18/21 18:21 Baclofen 10 Mg Tablet PO 06/14/21 21:59 40 mg 0800,1800 JAH Administration Fluticasone Propionate 0 gm 05/16/21 08:00 05/18/21 07:45 Fluticasone Propionate 16 Gm Bottle Nasal [place] NS 06/15/21 07:59 16 gm 0800 JAH Administration Dextrose/Sodium Chloride 1,000 mls @ 100 mls/hr 05/15/21 17:00 05/17/21 15:00 Dextrose 5%-1/4ns Iv Soln. 1000 Ml IV 06/14/21 16:59 100 mls/hr .Q10H JAH Administration Sodium Chloride 500 mls @ 500 mls/hr 05/16/21 11:06 05/16/21 11:14 Sodium Chloride 0.9% 500 Ml IV 05/16/21 12:05 500 mls/hr .Q1H ONE Administration Sodium Chloride 250 mls @ 250 mls/hr 05/16/21 19:00 05/16/21 18:55 Sodium Chloride 0.9% 250 Ml IV 05/16/21 19:59 250 mls/hr .Q1H JAH Administration Dextrose 1,000 mls @ 75 mls/hr 05/17/21 18:00 05/18/21 08:09 Dextrose 5%/Water Iv Soln. 1000 Ml IV 06/16/21 17:59 75 mls/hr .[id number] JAH Administration Loratadine 10 mg 05/16/21 08:00 05/18/21 08:10 Loratadine 10 Mg Tablet PO 06/15/21 07:59 10 mg 0800 JAH Administration Losartan Potassium 50 mg 05/16/21 08:00 05/18/21 08:10 Losartan Potassium 50 Mg Tablet PO 06/15/21 07:59 50 mg 0800 JAH Administration Magnesium Hydroxide 30 ml 05/18/21 10:59 05/18/21 11:52 Magnesium Hydroxide 30 Ml Udcup PO 06/17/21 10:58 30 ml QDP PRN Administration CONSTIPATION Metoprolol Tartrate 12.5 mg 05/15/21 22:00 05/17/21 09:58 Metoprolol Tartrate 25 Mg Tab PO 06/14/21 21:59 Not Given 0800,1800 JAH Morphine Sulfate 2 mg 05/15/21 18:38 Morphine Sulfate 2 Mg/Ml Inj IV 05/20/21 18:37 Q4H PRN PRN PAIN Multivitamins Therapeutic 1 tab 05/16/21 08:00 05/18/21 08:10 Multivitamins,Therapeutic 1 Tab Tab PO 06/15/21 07:59 1 tab 0800 JAH Administration Non-Formulary Medication 2 each 05/16/21 22:41 05/15/21 22:58 Non-Formulary Drug 1 Each Each PO 06/15/21 22:40 2 each 0800,1800 JAH Administration Non-Formulary Medication 1 each 05/16/21 08:00 05/15/21 22:58 Non-Formulary Drug 1 Each Each PO 06/15/21 07:59 1 each 0800,1800 JAH Administration Non-Formulary Medication 1.5 each 05/16/21 08:00 05/15/21 22:58 Non-Formulary Drug 1 Each Each PO 06/15/21 07:59 1.5 each 0800,1800 JAH Administration Ondansetron HCl 4 mg 05/15/21 18:38 Ondansetron Hcl 4 Mg/2 Ml Vial IV 06/14/21 18:37 Q6H PRN PRN NAUSEA/VOMITING Patient Own Med: 1 each 05/16/21 08:00 05/18/21 18:15 Vimpat 200 Mg PO 06/15/21 07:59 1 each 0800,1800 JAH Administration Patient Own Med : 0 each 05/16/21 08:00 05/18/21 18:17 Briviact 100 Mg PO 06/15/21 07:59 1 each 0800,1800 JAH Administration Patient Own Med: 0.5 each 05/16/21 08:00 05/18/21 18:17 Aptiom 400 Mg PO 06/15/21 07:59 0.5 each 0800,1800 JAH Administration Patient Own Med : 0 each 05/16/21 08:00 05/18/21 18:16 Aptiom 800 Mg PO 06/15/21 07:59 1 each 0800,1800 JAH Administration Polyethylene Glycol 17 gm 05/15/21 22:00 05/18/21 18:22 Polyethylene Glycol 3350 17 Gm Packet PO 06/14/21 21:59 Not Given 1800 JAH Psyllium Hydrophilic Mucilloid 1 pkt 05/17/21 18:00 05/18/21 18:22 Psyllium 1 Pkt Packet PO 06/16/21 17:59 Not Given EVENING MEAL JAH Intake & Output (Last 24 hours) 05/17/21 05/18/21 05/19/21 05/20/21 11:59 11:59 11:59 11:59 Intake Total 3372 3946 720 Output Total 925 1815 Balance 2447 2131 720 Patient Care Notes (Last 24 hours) 05/18/21 20:31 Nursing Note by Syeda Shah Patient discharged with family, in stable condition. All belongings taken by brother, accompanied mukul. discharged via his electric chair. Initialized on 05/18/21 20:31 - END OF NOTE - Vitals & Intake/Output Vital Signs: Vital Signs Temperature 98.3 F 05/18/21 16:00 Pulse Rate 96 H 05/18/21 16:00 Respiratory Rate 21 05/18/21 16:00 Blood Pressure 117/69 05/18/21 16:00 O2 Sat by Pulse Oximetry 93 L 05/18/21 16:00 Intake & Output: Intake & Output 05/17/21 05/18/21 05/19/21 05/20/21 11:59 11:59 11:59 11:59 Intake Total 3372 3946 720 Output Total 925 1815 Balance 2447 2131 720 - Lab Result Diagrams: 05/18/21 05:35 05/18/21 05:35 - Procedures and Test Procedures and Tests throughout Hospitalization: Therapy Orders & Screens 05/15/21 21:00 BiPap/CPAP ROUTINE Comment: HOME CPAP UNIT Diagnosis: hypernatremia, altered mental status acute renal injury d ehydration 05/16/21 11:10 Respiratory Therapy Assessment DAILY Comment: Diagnosis: Hypernatremia, AMS, Acute renal Injury 05/17/21 19:11 Respiratory Therapy Assessment DAILY Comment: Diagnosis: Hypernatremia, AMS, Acute renal Injury Discharge Exam General Appearance: no apparent distress, alert Neurologic Exam: alert, oriented x 3, cooperative, normal mood/affect, nml cerebellar function, sensation nml, No motor deficits Eye Exam: PERRL, EOMI, eyes nml inspection Ears, Nose, Throat Exam: normal ENT inspection, pharynx normal, moist mucous membranes Neck Exam: normal inspection, non-tender, supple, full range of motion Respiratory Exam: normal breath sounds, lungs clear, No respiratory distress Cardiovascular Exam: regular rate/rhythm, normal heart sounds Gastrointestinal/Abdomen Exam: soft, No tenderness, No mass Male Genitalia Exam: deferred Rectal Exam: deferred Back Exam: normal inspection, normal range of motion, No CVA tenderness, No vertebral tenderness Extremity Exam: normal inspection, normal range of motion Skin Exam: normal color, warm, dry Final Diagnosis/Problem List - Final Discharge Diagnosis/Problem (1) Altered mental status Status: Resolved Code(s): R41.82 - ALTERED MENTAL STATUS, UNSPECIFIED (2) Hypernatremia Status: Resolved Code(s): E87.0 - HYPEROSMOLALITY AND HYPERNATREMIA (3) Aspiration pneumonia due to food (regurgitated) Status: Acute Code(s): J69.0 - PNEUMONITIS DUE TO INHALATION OF FOOD AND VOMIT - Discharge Discharge Date: 05/18/21 Disposition: HOME HEALTH SERVICE Condition: Stable Prescriptions: Continue Multivitamin [Multivitamins] 1 each PO 0800 Loratadine 10 mg [Claritin 10 mg] 10 mg PO 0800 Brivaracetam [Briviact] 100 mg PO 0800,1800 Lacosamide [Vimpat] 200 mg PO 0800,1800 Baclofen 40 mg PO 0800,1800 Alendronate Sodium 70 mg [Fosamax 70 MG] 70 mg PO Q7D@0600 Metoprolol Tartrate 12.5 mg PO 0800,1800 Polyethylene Glycol 3350 17 gm [Miralax Powder 17GM PACKET] 17 gm PO 1800 Fluticasone Propionate [Flonase NASAL] 2 sprays NS DAILY PRN PRN PRN Reason: Allergies Losartan Potassium 50 mg [Cozaar 50 MG] 50 mg PO 0800 Eslicarbazepine Acetate [Aptiom] 200 mg PO 0800,1800 Eslicarbazepine Acetate [Aptiom] 800 mg PO 0800,1800 Albuterol 8 gm Mdi Hfa [Ventolin Hfa MDI] 2 puff IH Q4HPRN PRN PRN Reason: Shortness Of Breath/Wheezing Instructions: Dehydration, Adult (DC), Sodium Test Follow up with: SUSANA BALDWIN MD [Primary Care Provider] - 05/29/21 2:45 pm ANANDA QUEZADA [CONSULTING PHYSICIAN] - Call for Appointment (Call for an appointment as soon as possible.) Forms: Discharge Instructions
== END 2021-05-18 20:30 | disposition home health service (06) | DRG 640 ==
LOC: ED 12:33 → MED SURG 18:30 → OBSVTOIN 05-16 08:55
PROVIDERS: ADMIT Family Medicine; ATTEND Family Medicine
DX: E87.0 Hyperosmolality and hypernatremia (principal); J69.0 Pneumonitis due to inhalation of food and vomit; N17.9 Acute kidney failure, unspecified; R41.82 Altered mental status, unspecified; I10 Essential (primary) hypertension; G40.909 Epilepsy, unspecified, not intractable, without status epilepticus; E86.0 Dehydration; Z79.899 Other long term (current) drug therapy; Z20.828 Contact with and (suspected) exposure to other viral communicable diseases; Z87.820 Personal history of traumatic brain injury
CPT/HCPCS: 0241U; 36415; 70450; 71045; 80048; 80053; 85025; 93268; 94640; 94760; 99283; G0378; A9270-GY

== ENCOUNTER 2023-11-02 06:41 | Day surgery (SDC) | payer MEDICARE ==
[2023-11-02] MEDS ORDERED: Lactated Ringers 1,000 ML IV ONE ×2 (07:22→09:49)
[2023-11-02] MEDS ORDERED: MEFOXIN 2 GM PREMIX** 2 GM/50 ML ML IV ONE (07:22)
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
[2023-11-02] MEDS ORDERED: ROCURONIUM BROMIDE IV ONE (08:45)
[2023-11-02] MEDS ORDERED: SUBLIMAZE 100 MCG/2 ML ONE ×2 (08:45→10:10)
[2023-11-02] MEDS ORDERED: BRIDION 200MG/2ML IV ONE (08:45)
[2023-11-02] MEDS ORDERED: TORAdol 30 mg Injection ONE (08:45)
[2023-11-02] MEDS ORDERED: Zofran 4 MG/2 ML VIAL ONE (08:45)
[2023-11-02] MEDS ORDERED: Xylocaine-Mpf 2% 5 Ml Vial ONE (08:45)
[2023-11-02] MEDS ORDERED: Decadron 4 MG INJ ONE (08:45)
[2023-11-02] MEDS ORDERED: DIPRIVAN 200 MG/20 ML IV ONE (08:45)
[2023-11-02] MEDS ORDERED: Sensorcaine 0.25% 10 ML ONE (09:21)
[2023-11-02] MEDS ORDERED: Ephedrine Sulfate 50 MG/ML ONE (09:27)
[2023-11-02 11:26] VITALS: RESP 16
[2023-11-02 12:34] VITALS: BP 143/68; PULSE 82; TEMP 97; O2SAT 92
[2023-11-03] MEDS: MEFOXIN 2 GM PREMIX** 2 GM/50 ML ML IV SCH (07:30)
[2023-11-03] MEDS: Lactated Ringers 1,000 ML IV SCH (07:30)
--- NOTE | 2023-11-03 09:09 | OP ---
SURGERY DATE/TIME: 11/02/2023 PREOPERATIVE DIAGNOSIS: Acute exacerbation of chronic cholecystitis with symptomatic biliary sludge or small stones. POSTOPERATIVE DIAGNOSIS: Acute exacerbation of chronic cholecystitis with symptomatic biliary sludge or small stones. PROCEDURE: Laparoscopic cholecystectomy. SURGEON: Erwin Paige MD ANESTHESIA: General. ESTIMATED BLOOD LOSS: Minimal. INDICATIONS: Consent was obtained. DESCRIPTION OF PROCEDURE AND FINDINGS: The patient was taken to the operating room. General anesthesia was induced. He was prepped and draped in usual sterile fashion. After official time-out and no disagreement in planned procedure, transverse incision made at the supraumbilical area. Fascia grasped and pulled upward. Veress needle inserted. Tested with saline. Pneumoperitoneum accomplished insufflating from an opening pressure of 15. A 5 mm bladeless port and camera inserted without difficulty, followed by two 5 mm right upper quadrant ports and an 11 mm epigastric port. Gallbladder was grasped, had some chronic inflammation. Dissected posterior, lateral to anterior fashion. Had some problems with the cautery unit that took some time. Once appropriate cautery unit was obtained, using hook cautery, carefully dissected free along the gallbladder surface, bringing the initial edges up to allow careful dissection. The cystic duct main cystic artery were isolated until critical view was obtained anteriorly and posteriorly. Once this was accomplished, the cystic duct and the cystic artery were clipped x3 and divided in usual fashion. Gallbladder was slowly and carefully dissected free from its dense attachments to the liver bed staying directly on the gallbladder wall, clipping additional oozing side branches off the cystic artery or vein. Just prior to releasing the final attachments, liver bed reinspected. Clips noted to be in place in the cystic duct and cystic artery stumps. No signs of any active bleeding or bile leakage. It was felt there was no benefit of any drain placement. Gallbladder released from its final attachments to the anterior edge of the liver, placed in a provided sac and pulled up and out the epigastric 11 port. It was passed off to Pathology. This fascial defect closed with puncture closure device with #1 Vicryl and later a UR needle fascial closure. Copious irrigation was accomplished in the subhepatic space and lateral liver, irrigated clear. Pneumoperitoneum decompressed. Wounds irrigated out. Skin incision closed with 4-0 Vicryl. Steri-Strips and sterile dressing applied. The patient tolerated the procedure well. There were no immediate complications.
== END 2023-11-02 12:19 | disposition home or self-care (01) ==
LOC: SDC 06:41
PROVIDERS: ATTEND Surgery
DX: K80.10 Calculus of gallbladder with chronic cholecystitis without obstruction (principal)
CPT/HCPCS: 93005; J0694; J1100; J1885; J2405; J2704; J3010

== ENCOUNTER 2024-05-30 17:34 | Emergency (ER) | payer MEDICARE ==
[2024-05-30 17:53] VITALS: TEMP 97.3
--- NOTE | 2024-05-30 18:13 | ERPHSYRPT ---
- History of Present Illness Time Seen by Provider: 05/30/24 18:00 Source: patient Exam Limitations: no limitations Patient Subjective Stated Complaint: Patient without complaints. Denies pain. 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 Reports mouth drooping that has resolved, increased drowsiness, difficulties finding his words to speak. Triage Nursing Assessment: Patient arrived by EMS. He is currently alert and oriented per his normal. No cough. No SOB. Skin tone normal. Braces to BLE present. Timing/Duration: today Severity: mild Associated Symptoms: denies symptoms Allergies/Adverse Reactions: adhesive tape Allergy (Verified 05/30/24 17:36) clobetasol Allergy (Verified 05/30/24 17:37) latex Allergy (Verified 05/30/24 17:36) Home Medications: Lacosamide [Vimpat] 200 mg PO BID 10/06/18 [History] Alendronate Sodium 70 mg [Fosamax 70 MG] 70 mg PO Q7D@0600 09/22/19 [H istory] Metoprolol Tartrate 12.5 mg PO BID 10/07/19 [History] Fluticasone Propionate [Flonase NASAL] 2 sprays NS DAILY PRN PRN 12/26/20 [History] Polyethylene Glycol 3350 17 gm [Miralax Powder 17GM PACKET] 17 gm PO [id number] PRN 12/26/20 [History] Albuterol 8 gm Mdi Hfa [Ventolin Hfa MDI] 2 puff IH BID PRN 05/15/21 [History] Ascorbic Acid [Vitamin C] 1,000 mg PO DAILY 10/26/23 [History] Fexofenadine HCl 180 mg PO UD 10/26/23 [History] Montelukast Sodium 10 mg [Singulair 10 MG] 10 mg PO DAILY 10/26/23 [History] Psyllium Husk (with Sugar) [Metamucil Free Powder] 822 gm PO UD 10/26/23 [History] Tizanidine HCl See Rx Instructions .ROUTE .COMPLEX 10/26/23 [History] Hx Tetanus, Diphtheria Vaccination/Date Given: No Hx Influenza Vaccination/Date Given: No Hx Pneumococcal Vaccination/Date Given: No Immunizations Up to Date: Yes Travel Risk - International Travel Have you traveled outside of the country in past 3 weeks: No - Emerging Infectious Disease Are you exhibiting symptoms associated with any current EIDs: No - Review of Systems Constitutional: No Symptoms Eyes: No Symptoms Ears, Nose, & Throat: No Symptoms Respiratory: No Symptoms Cardiac: No Symptoms Abdominal/Gastrointestinal: No Symptoms Genitourinary Symptoms: No Symptoms Musculoskeletal: No Symptoms Skin: No Symptoms Neurological: No Symptoms (generalized weakness earlier today that has resolved ) Psychological: No Symptoms Endocrine: No Symptoms Hematologic/Lymphatic: No Symptoms Immunological/Allergic: No Symptoms All Other Systems: Reviewed and Negative - Past Medical History Pertinent Past Medical History: Yes Neurological History: Seizures ENT History: No Pertinent History Cardiac History: Hypertension Respiratory History: Sleep Apnea Endocrine Medical History: No Pertinent History Musculoskeletal History: No Pertinent History GI Medical History: No Pertinent History History: No Pertinent History Psycho-Social History: Other Male Reproductive Disorders: No Pertinent History Other Medical History: PT. 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 double hernia repair, multiple reconstruction surgerys to hand and arm/jaw - Social History Smoking Status: Never smoker Exposure to second hand smoke: No Drug Use: none - Social Determinants of Health Will the patient participate in the screening: Declined to provide - Nursing Vital Signs Nursing Vital Signs: Initial Vital Signs Temperature 97.3 F 05/30/24 17:42 Pulse Rate 68 05/30/24 17:42 Respiratory Rate 05/30/24 17:42 Blood Pressure 149/101 05/30/24 17:42 O2 Sat by Pulse Oximetry 100 05/30/24 17:42 Pain Scale Pain Intensity 0 - Physical Exam General Appearance: no apparent distress Eye Exam: PERRL/EOMI Ears, Nose, Throat Exam: normal ENT inspection Neck Exam: non-tender Respiratory Exam: normal breath sounds Cardiovascular Exam: regular rate/rhythm Gastrointestinal/Abdomen Exam: soft, normal bowel sounds SpO2: 100 Ordered Tests: Active Orders 24 hr Category Date Time Status HEAD WITHOUT CONTRAST [CT] Stat Exams 05/30/24 18:14 Taken CMP Stat Lab 05/30/24 14:00 Completed UA W/RFX UR CULTURE Stat Lab 05/30/24 18:15 Completed Lab/Rad Data: Laboratory Result Diagrams 05/30/24 14:00 Laboratory Results 05/30/24 05/30/24 Range/Units 18:15 14:00 Sodium 138 (135-145) mmol/L Potassium 4.1 (3.5-5.1) mmol/L Chloride 98 (98-107) mmol/L Carbon Dioxide 28 (22-30) mmol/L Anion Gap 15.1 H (5-15) MEQ/L BUN 23 H (9-20) mg/dL Creatinine 0.56 L (0.66-1.25) mg/dL Estimated GFR 110.8 ML/MIN Glucose 117 H (74-106) mg/dL Calcium 9.4 (8.4-10.2) mg/dL Total Bilirubin 0.40 (0.2-1.3) mg/dL AST 54 (17-59) U/L ALT 70 H (0-50) U/L Alkaline Phosphatase 93 (38-126) U/L Serum Total Protein 7.6 (6.3-8.2) g/dL Albumin 4.6 (3.5-5.0) g/dL Urine Color Yellow (Yellow) Urine Appearance Clear (Clear) Urine pH 6.5 (4.6-8.0) Ur Specific [place] 1.010 (1.005-1.030) Urine Protein Negative (Negative) Urine Glucose (UA) Negative (Negative) mg/dL Urine Ketones Negative (Negative) Urine Blood Negative (Negative) Urine Nitrite Negative (Negative) Urine Bilirubin Negative (Negative) Urine Urobilinogen 0.2 (0.2) mg/dL Ur Leukocyte Esterase Negative (Negative) U Hyaline Cast (Auto) NONE SEEN (0-2) /LPF Urine Microscopic RBC 0-2 (0-5) /HPF Urine Microscopic WBC 0-2 (0-5) /HPF Ur Epithelial Cells None Seen (None Seen) /HPF Urine Bacteria None Seen (None Seen) /HPF Urine Culture Reflexed NO (NO) - Progress Progress Note: Patient was seen and evaluated for weakness, he has a history of seizure. His caregiver states that he was weak earlier today however since arriving here his weakness has improved he denies any complaints; Labs urinalysis and head CT were obtained these are within normal limits The CT of the head reveals normal senile brain. Patient was monitored here in the department and has not had any new complaints or deteriorated he feels comfortable going home 05/30/24 20:46 Medical Desision Making - Discussion of managment Agreed on:: need for follow-up Will see patient: In office - Departure Departure Disposition: Home Clinical Impression: Weakness Condition: Stable Critical Care Time: No Referrals: SUSANA BALDWIN MD [Primary Care Provider] - Follow up/PCP as directed
[2024-05-30 18:37] LABS: Appearance Clear (Clear); Bacteria None Seen /HPF (None Seen); Bilirubin Negative (Negative); Blood Negative (Negative); Epithelial Cells None Seen /HPF (None Seen); Glucose, Urine Negative (Negative); Hyaline Casts NONE SEEN /LPF (0-2); Ketones Negative (Negative); Leukocyte Esterase Negative (Negative); Nitrite Negative (Negative); Ph 6.5 (4.6-8.0); Protein,Urine Dip Negative (Negative); RBC 0-2 /HPF (0-5); Urobilinogen 0.2 mg/dL (0.2); WBC 0-2 /HPF (0-5)
[2024-05-30 19:16] LABS: ALBUMIN 4.6 g/dL (3.5-5.0); ANION GAP 15.1 MEQ/L (5-15); BILIRUBIN,TOTAL 0.4 mg/dL (0.2-1.3); Calcium 9.4 mg/dL (8.4-10.2); Creatinine 1 0.56 mg/dL (0.66-1.25); EST GLOMERULAR FILTRATION RATE 110.8 ML/MIN; Potassium 4.1 mmol/L (3.5-5.1); Total Protein 7.6 g/dL (6.3-8.2)
[2024-05-30 21:13] VITALS: BP 136/68; PULSE 78; RESP 22; O2SAT 98
--- NOTE | 2024-05-31 08:53 | XRAY ---
Indication: Seizure. Multiple contiguous axial images obtained through the head without contrast. Comparison: May 15, 2021 Again age-appropriate global atrophy, moderate periventricular degenerative micro-ischemia bilaterally, and small focus remote infarct left mid parietal lobe. No acute intracranial hemorrhage, hydrocephalus, or mass effect. Fourth ventricle is midline without hydrocephalus. Bony calvarium intact. Visualized paranasal sinuses and mastoid air cells are clear. 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
== END 2024-05-30 21:50 | disposition home or self-care (01) ==
LOC: ED 17:34
DX: R53.1 Weakness (principal); I10 Essential (primary) hypertension; Z79.899 Other long term (current) drug therapy
CPT/HCPCS: 36415; 70450; 80053; 81001; 82947; 99284